=== PATIENT | male | born 1945 | race Caucasian/White ===

== ENCOUNTER → 2019-10-25 | Outpatient (CLI) | payer MEDICARE ==
[2019-08-18 11:00] VITALS: BP 98/72
[~2019-10-25] MED LIST: APIX5TAB PO; FURO40TA4 PO; LISI-338 PO; METO25TA4 PO; NITR0.4T24 SL
== END | disposition home or self-care (01) ==
LOC: LAB 13:33
PROVIDERS: ATTEND Internal Medicine Cardiovascular Disease
DX: Z01.818 Encounter for other preprocedural examination (principal); Z11.59 Encounter for screening for other viral diseases; I48.91 Unspecified atrial fibrillation
CPT/HCPCS: C9803; U0003; 36415; 87635

== ENCOUNTER → 2019-10-29 | Day surgery (SDC) | payer MEDICARE ==
[~2019-10-29] MED LIST changes: +IV RINGERS,LACTATED 1000ML 1,000 ML IV SCH; +PROPOFOL 10 MG/ML (20ML) VIAL. IV ONE
--- NOTE | 2019-10-29 10:04 | EKG ---
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
[2019-10-29 10:14] LABS: HEMATOCRIT 44.4 % (39.0-53.0); HEMOGLOBIN 14.6 g/dL (13.0-17.5)
[2019-10-29 10:23] LABS: CREATININE 1.2 mg/dL (0.7-1.3); GFR 59.2; MAGNESIUM 2.1 mg/dL (1.8-2.4); POTASSIUM 4.2 mmol/L (3.5-5.1)
[2019-10-29 10:25] LABS: PROTHROMBIN TIME PATIENT 16.2 SEC (11.7-14.0)
--- NOTE | 2019-10-29 10:46 | EKG ---
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
--- NOTE | 2019-10-29 10:50 | PDOC ---
Provider Note Provider Note PROCEDURE External cardioversion INDICATIONS Atrial fibrillation COMPLICATIONS None PROCEDURAL DETAILS And informed consent was obtained from patient. After anesthesiology team gave the patient intravenous propofol for deep sedation, he was administered 200 J of synchronized biphasic DC current with successful conversion of rhythm from atrial fibrillation to sinus rhythm. He was hemodynamically stable without any neurological deficits at the end of procedure. He tolerated the procedure well. CONCLUSIONS Successful external cardioversion of atrial fibrillation to sinus rhythm. ROBERTA THOMAS MD October 29, 2019 10:50
[2019-10-29 10:51] VITALS: BP 116/65
== END | disposition home or self-care (01) ==
LOC: SURG 09:26
PROVIDERS: ATTEND Internal Medicine Cardiovascular Disease
DX: I48.91 Unspecified atrial fibrillation (principal); I10 Essential (primary) hypertension; I49.9 Cardiac arrhythmia, unspecified; I25.10 Atherosclerotic heart disease of native coronary artery without angina pectoris; Z98.890 Other specified postprocedural states; Z79.899 Other long term (current) drug therapy; Z79.01 Long term (current) use of anticoagulants
CPT/HCPCS: 36415; 80048; 83735; 85014; 85018; 85610; 92960; 93005; J2704

== ENCOUNTER 2020-01-08 12:03 | Inpatient (IN) | payer MEDICARE ==
[2020-01-07] MEDS: VANCOMYCIN 1.75 GM in IV NORMAL SALINE 500ML BAG 500 ML IV ONE (22:00)
[~2020-01-08] VITALS: Ht 185.4 cm; Wt 75.2 kg
[~2020-01-08 12:03] MED LIST changes: -IV RINGERS,LACTATED 1000ML 1,000 ML IV SCH; -PROPOFOL 10 MG/ML (20ML) VIAL. IV ONE
[2020-01-08 13:56] LABS: BASO # 0.1 x10^3/uL (0.0-0.2); BASO % 1 % (0-3); EOS % 0 % (0-3); HEMATOCRIT 39.5 % (39.0-53.0); HEMOGLOBIN 13.6 g/dL (13.0-17.5); LYMPH # 0.6 x10^3/uL (1.0-4.8); LYMPH % 4 % (24-48); MEAN CORPUSCULAR HEMOGLOBIN 34 pg (25-35); MEAN CORPUSCULAR HGB CONC 35 g/dL (31-37); MEAN CORPUSCULAR VOLUME 98 fL (79-100); MONO # 2.2 x10^3/uL (0.0-1.1); MONO % 16 % (0-9); NEUT # 10.8 x10^3/uL (1.8-7.7); NEUT % 79 % (31-73); PLATELET COUNT 326 x10^3/uL (140-400); RED BLOOD COUNT 4.01 x10^6/uL (4.30-5.70); RED CELL DISTRIBUTION WIDTH 13.7 % (11.5-14.5); WHITE BLOOD COUNT 13.7 x10^3/uL (4.0-11.0)
--- NOTE | 2020-01-08 13:57 | EKG ---
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
[2020-01-08 14:05] LABS: PROTHROMBIN TIME PATIENT 16.9 SEC (11.7-14.0)
--- NOTE | 2020-01-08 14:06 | RAD ---
EXAM: CHEST ONE VIEW. HISTORY: Chest pain. COMPARISON: 08/16/2019. FINDINGS: A frontal view of the chest is obtained. There are no confluent infiltrates. There is no pneumothorax or pleural effusion. The heart is not enlarged. There is a chronic left rib fracture. IMPRESSION: 1. No confluent infiltrates. Electronically signed by: Bernabe Murphy MD (01/08/2020 2:02 PM) [id number]
[2020-01-08 14:18] LABS: CALCIUM 9.8 mg/dL (8.5-10.1); CREATININE 1.2 mg/dL (0.7-1.3); GFR 59.2
[2020-01-08 14:25] LABS: ALBUMIN 2.9 g/dL (3.4-5.0); ALBUMIN/GLOBULIN RATIO 0.5 (1.0-1.7); MAGNESIUM 2.3 mg/dL (1.8-2.4); TOTAL BILIRUBIN 2.7 mg/dL (0.2-1.0); TOTAL PROTEIN 8.7 g/dL (6.4-8.2)
--- NOTE | 2020-01-08 14:31 | RAD ---
Examination: CT HEAD WO CONTRAST History: Reason: weakness, mild left facial droop / Spl. Instructions: / History: Comparison/Correlation: None Findings: Axial images of the head were obtained without contrast. Mild atrophy is present. Cavernous carotid calcifications noted. No intracranial hemorrhage, midline shift, or mass effect. No findings to suggest evolving infarct. Orbits are unremarkable. Bony structures unremarkable. Impression: No suspicious process. The referring ED provider was informed on 01/08/2020 2:28 PM. Electronically signed by: uDsty Guadalupe MD (01/08/2020 2:28 PM) [id number]
[2020-01-08 14:32] LABS: CREATINE KINASE 50 U/L (39-308)
--- NOTE | 2020-01-08 15:01 | PHYS DOC ---
Past Medical History Past Medical History: A-Fib, CHF Additional Past Medical Histor: RVR Additional Past Surgical Histo: inguinal hernia repair, CARDIAC CATH Smoking Status: Former Smoker Alcohol Use: None General Adult EDM: Chief Complaint: WEAKNESS/GENERALIZED HPI: HPI: Patient is a 74 year old male, accompanied by his daughter, who presents to the emergency department with complaints of aching in his joints for the last 3 days. Patient reports that he has severe pain in both of his knees. He denies any recent injury. He states that yesterday he noticed that his left knee became very swollen and that the pain increased. He denies any cough, fever, shortness of breath, abdominal pain, nausea, vomiting, diarrhea, vision changes, dizziness, or headache. Patient denies any difficulty swallowing, aphasia, chest pain, or palpitations. He denies any numbness, tingling, or weakness. He currently rates his pain a 7 out of 10 on the pain scale, he reports that the pain does not radiate and is most severe in his left knee. He reports that the pain increases with movement and palpation he states that the pain decreases with rest. Review of Systems: Review of Systems: Constitutional: Denies fever Eyes: Denies change in visual acuity. [] HENT: Denies nasal congestion or sore throat. [] Respiratory: Denies cough or shortness of breath. [] Cardiovascular: Denies chest pain or edema. [] GI: Denies abdominal pain, nausea, vomiting, bloody stools or diarrhea. [] : Denies dysuria. [] Musculoskeletal: See HPI Integument: Denies rash. [] Neurologic: Denies headache, focal weakness or sensory changes; see HPI. [] Psychiatric: Denies depression or anxiety. [] Heart Score: Risk Factors: Risk Factors: DM, Current or recent (<one month) smoker, HTN, HLP, family his tory of CAD, obesity. Risk Scores: Score 0 - 3: 2.5% MACE over next 6 weeks - Discharge Home Score 4 - 6: 20.3% MACE over next 6 weeks - Admit for Clinical Observation Score 7 - 10: 72.7% MACE over next 6 weeks - Early Invasive Strategies Allergies: Allergies: Allergies Coded Allergies Type Severity Reaction Last Updated Verified No Known Drug Allergies 10/29/19 No Physical Exam: PE: Constitutional: Well developed, well nourished, no acute distress, non-toxic appearance. [] HENT: Normocephalic, atraumatic, bilateral external ears normal, nose normal. [] Eyes: PERRLA, EOMI, conjunctiva normal, no discharge. [] Neck: Normal range of motion, no tenderness, supple, no stridor. [] Cardiovascular:Heart rate regular rhythm, no murmur [] Lungs & Thorax: Bilateral breath sounds clear to auscultation, Respirations even and unlabored, no retractions, no respiratory distress [] Abdomen: Bowel sounds normal, soft, no tenderness, no masses, no pulsatile masses. [] Skin: Warm, dry, no erythema, no rash. [] Back: No tenderness Extremities: Left knee: Diffuse tenderness to palpation with 2+ edema, warmth, no erythema, no cyanosis, limited range of motion due to pain, 2+ pedal pulse of lower left extremity, cap refill less than 2 seconds of lower left extremity Neurologic: Alert and oriented X 3, normal motor function, no focal deficits noted; mild left-sided facial droopchronic per patient; decreased sensitivity to sharp and dull sensation of left upper extremity Psychologic: Affect normal, judgement normal, mood normal. [] Current Patient Data: Labs: Laboratory Tests Test 01/08/20 13:43 White Blood Count 13.7 x10^3/uL (4.0-11.0) H Red Blood Count 4.01 x10^6/uL (4.30-5.70) L Hemoglobin 13.6 g/dL (13.0-17.5) Hematocrit 39.5 % (39.0-53.0) Mean Corpuscular Volume 98 fL (79-100) Mean Corpuscular Hemoglobin 34 pg (25-35) Mean Corpuscular Hemoglobin Concent 35 g/dL (31-37) Red Cell Distribution Width 13.7 % (11.5-14.5) Platelet Count 326 x10^3/uL (140-400) Neutrophils (%) (Auto) 79 % (31-73) H Lymphocytes (%) (Auto) 4 % (24-48) L Monocytes (%) (Auto) 16 % (0-9) H Eosinophils (%) (Auto) 0 % (0-3) Basophils (%) (Auto) 1 % (0-3) Neutrophils # (Auto) 10.8 x10^3/uL (1.8-7.7) H Lymphocytes # (Auto) 0.6 x10^3/uL (1.0-4.8) L Monocytes # (Auto) 2.2 x10^3/uL (0.0-1.1) H Eosinophils # (Auto) 0.0 x10^3/uL (0.0-0.7) Basophils # (Auto) 0.1 x10^3/uL (0.0-0.2) Platelet Estimate Pending Prothrombin Time 16.9 SEC (11.7-14.0) H Prothrombin Time INR 1.4 (0.8-1.1) H Activated Partial Thromboplast Time 43 SEC (24-38) H Sodium Level 133 mmol/L (136-145) L Potassium Level 4.0 mmol/L (3.5-5.1) Chloride Level 97 mmol/L (98-107) L Carbon Dioxide Level 25 mmol/L (21-32) Anion Gap 11 (6-14) Blood Urea Nitrogen 27 mg/dL (8-26) H Creatinine 1.2 mg/dL (0.7-1.3) Estimated GFR (Cockcroft-Gault) 59.2 BUN/Creatinine Ratio 23 (6-20) H Glucose Level 132 mg/dL (70-99) H Calcium Level 9.8 mg/dL (8.5-10.1) Magnesium Level 2.3 mg/dL (1.8-2.4) Total Bilirubin 2.7 mg/dL (0.2-1.0) H Aspartate Amino Transferase (AST) 101 U/L (15-37) H Alanine Aminotransferase (ALT) 73 U/L (16-63) H Alkaline Phosphatase 275 U/L (46-116) H Creatine Kinase 50 U/L (39-308) Creatine Kinase MB (Mass) 0.6 ng/mL (0.0-3.6) Creatine Kinase MB Relative Index % (0-4) Troponin I Quantitative < 0.017 ng/mL (0.000-0.055) JY-Osh-M-Type Natriuretic Peptide 1456 pg/mL (0-124) H Total Protein 8.7 g/dL (6.4-8.2) H Albumin 2.9 g/dL (3.4-5.0) L Albumin/Globulin Ratio 0.5 (1.0-1.7) L Lipase 326 U/L (73-393) Laboratory Tests 01/08/20 13:43 Laboratory Tests 01/08/20 13:43 Vital Signs: Vital Signs Date Time Temp Pulse Resp B/P (MAP) Pulse Ox O2 Delivery O2 Flow Rate FiO2 01/08/20 14:00 99.0 114 20 136/82 (100) 99 Room Air 99.0 EKG: EKG: []1334- sinus tachycardia, rate 115, no STEMI read by Dr. Becerril Radiology/Procedures: Radiology/Procedures: PROCEDURE: CT HEAD WO CONTRAST Examination: CT HEAD WO CONTRAST History: Reason: weakness, mild left facial droop / Spl. Instructions: / History: Comparison/Correlation: None Findings: Axial images of the head were obtained without contrast. Mild atrophy is present. Cavernous carotid calcifications noted. No intracranial hemorrhage, midline shift, or mass effect. No findings to suggest evolving infarct. Orbits are unremarkable. Bony structures unremarkable. Impression: No suspicious process. [] PROCEDURE: CHEST AP ONLY EXAM: CHEST ONE VIEW. HISTORY: Chest pain. COMPARISON: 08/16/2019. FINDINGS: A frontal view of the chest is obtained. There are no confluent infiltrates. There is no pneumothorax or pleural effusion. The heart is not enlarged. There is a chronic left rib fracture. IMPRESSION: 1. No confluent infiltrates. PROCEDURE: KNEE LEFT 3V Examination: KNEE LEFT 3V History: Reason: L KNEE swelling and pain without injury 17 labs 3:45 / Spl. Instructions: / History: Comparison/Correlation: None Findings: Total of 3 images of the left knee were obtained. Joint effusion. Joint spaces are unremarkable. No significant spurring or other degenerative change. No fracture or bone obstruction. Impression: Small joint effusion. Course & Med Decision Making: Course & Med Decision Making Pertinent Labs and Imaging studies reviewed. (See chart for details) [id number] with Dr. Lauren who is the admitting physician, and care was assum ed following discussion of patient. Will admit patient for PUI, left knee pain and swellingpossible septic joint, and fever. Advised that I will consult Dr. Collazo and Dr. Boyle as requested. Also ordered ultrasound of lower left extremity and CT Angio of chest as requested due to elevated d-dimer, will order Zosyn and vancomycin per pharmacy as requested. Blood cultures and lactic acid pending. Patient's vital signs stable. Patient vital signs are stable respirations even and unlabored. Patient will be admitted to the telemetry floor. Patient's case and plan of care also discussed with Dr. Becerril [] Alonzo Disclaimer: Alonzo Disclaimer: This electronic medical record was generated, in whole or in part, using a voice recognition dictation system. Departure Departure Impression: Primary Impression: Person under investigation for COVID-19 Additional Impressions: Pain and swelling of left knee Fever Qualified Codes: R50.9 - Fever, unspecified Disposition: ADMITTED INPATIENT Admitting Physician: CHARLOTTE ([facility]) Condition: STABLE Referrals: DENEEN TRUJILLO MD (PCP) Justicifation of Admission Dx: Justifications for Admission: Justification of Admission Dx: Yes Sepsis: Infection JOSE L TYLER APRN Jan 08, 2020 15:00
[2020-01-08 15:13] LABS: BILIRUBIN,URINE SMALL (NEG); CLARITY,URINE CLEAR; COLOR,URINE ORANGE; NITRITE,URINE NEGATIVE (NEG); PROTEIN,URINE 30 mg/dL (NEG-TRACE)
[2020-01-08] MEDS ORDERED: IBUPROFEN 400 MG TABLET. PO ONE (15:14)
[2020-01-08] MEDS ORDERED: IBUPROFEN 200 MG TABLET. PO ONE ×2 (15:14→15:30)
[2020-01-08 15:21] LABS: C-REACTIVE PROTEIN 203.3 mg/L (0-3.3)
[2020-01-08 15:22] LABS: HYALINE CASTS, URINE FEW /HPF; SQUAMOUS EPITHELIAL CELL,UR FEW /LPF
[2020-01-08 15:23] LABS: BACTERIA,URINE 0 /HPF (0-FEW); RBC,URINE 0 /HPF (0-2); WBC,URINE RARE /HPF (0-4)
[2020-01-08] MEDS ORDERED: IV NORMAL SALINE 1000ML BAG 1,000 ML IV ONE (15:30)
[2020-01-08 15:44] LABS: % BANDS 1 % (0-9); % LYMPHS 9 % (24-48); % MONOS 13 % (0-10); % SEGS 77 % (35-66)
[2020-01-08 15:45] LABS: PLT ESTIMATE ADEQUATE (ADEQUATE)
[2020-01-08 15:50] LABS: TOXIC GRANULATION SLIGHT
[2020-01-08] MEDS ORDERED: PIP/TAZO PER PHARMACY MC PRN (16:00)
--- NOTE | 2020-01-08 16:04 | PDOC1 ---
History and Physical Date of Admission Date of Admission DATE: 01/08/20 TIME: 16:03 Identification/Chief Complaint Chief Complaint seen in ER WITH 3 DAY HX left knee swelling, now associated with fever, states he was playing with his dod last wee, and sprained his left wrist, the pain and edema began to travel up his left arm, to his shoulder, neck, then down his left side to his knee, he is unaware of any open sores or bites, TEMPERATURE OF 101. 2 NOTED IN ER .. Past Medical History Past Medical History Past Medical History Past Medical History: A-Fib, CHF Additional Past Medical Histor: RVR Additional Past Surgical Histo: inguinal hernia repair, CARDIAC CATH Smoking Status: Former Smoker Alcohol Use: None Past Medical History Past Medical History Past Medical History: No Pertinent History Additional Past Surgical Histo: inguinal hernia repair Smoking Status: Never Smoker Alcohol Use: None fhx hyperlipidemia Musculoskeletal: Osteoarthritis Past Surgical History Past Surgical History: Cataract Removal, Hernia Repair Family History Family History: High Cholestrol Social History Smoke: No, REMOTE ALCOHOL: HEAVY Drugs: None Current Problem List Problem List Problems Medical Problems: (1) Atrial fibrillation with RVR Status: Acute FHX COPD Cardiovascular: CHF Musculoskeletal: Osteoarthritis Past Surgical History Past Surgical History: Cataract Removal, Hernia Repair Family History Family History: High Cholestrol, Kidney Disease Social History Smoke: No ALCOHOL: rare Drugs: None Current Medications Current Medications Current Medications Ibuprofen (Motrin) 200 mg STK-MED ONCE PO ; Start 01/08/20 at 15:14; Stop 01/08/20 at 15:14; Status DC Ibuprofen (Motrin) 400 mg STK-MED ONCE PO ; Start 01/08/20 at 15:14; Stop 01/08/20 at 15:14; Status DC Sodium Chloride 1,000 ml @ 1,000 mls/hr 1X ONCE IV Last administered on 01/08/20at 15:24; Start 01/08/20 at 15:30; Stop 01/08/20 at 16:29 Ibuprofen (Motrin) 600 mg 1X ONCE PO Last administered on 01/08/20at 15:30; Start 01/08/20 at 15:30; Stop 01/08/20 at 15:31; Status DC Active Scripts Active Furosemide 40 Mg Tablet 1 Tab PO DAILY 30 Days Lisinopril 5 Mg Tablet 2.5 Mg PO DAILY 30 Days Metoprolol Tartrate 25 Mg Tablet 25 Mg PO BID 30 Days Nitrostat (Nitroglycerin) 0.4 Mg Tab.subl 0.4 Mg SL PRN Q5MIN PRN 30 Days Eliquis (Apixaban) 5 Mg Tablet 5 Mg PO BID 30 Days Allergies Allergies: Coded Allergies: No Known Drug Allergies (Unverified , 10/29/19) ROS Review of System POS FEVER X 24 HRS Eyes: Denies change in visual acuity. [] HENT: Denies nasal congestion or sore throat. [] Respiratory: Denies cough or shortness of breath. [] Cardiovascular: Denies chest pain or edema. [] GI: Denies abdominal pain, nausea, vomiting, bloody stools or diarrhea. [] : Denies dysuria. [] Musculoskeletal: SWELLING LEFT KNEE X 3 DAYS joint pain. [] Integument: Denies rash. [] Neurologic: Denies headache, focal weakness or sensory changes. [] Endocrine: Denies polyuria or polydipsia. [] Lymphatic: Denies swollen glands. [] Psychiatric: Denies depression or anxiety. [] 14 PT ROS OTHERWISE NEG Eyes: Yes Dry eyes Physical Exam Physical Exam Constitutional: Well developed, well nourished, no acute distress, non-toxic appearance. [] HENT: Normocephalic, atraumatic, bilateral external ears normal, oropharynx moist, no oral exudates, nose normal. [] Eyes: PERRLA, EOMI, conjunctiva normal, no discharge. [] Neck: Normal range of motion, no tenderness, supple, no stridor. [] Cardiovascular:irr rate, no murmur [] Lungs & Thorax: Bilateral breath sounds clear to auscultation [] Abdomen: Bowel sounds normal, soft, no tenderness, no masses, no pulsatile masses. [] Skin: Warm, dry, no erythema, no rash. [] Back: No tenderness, no CVA tenderness. [] Extremities: left knee effusion, david's neg [] Neurologic: Alert and oriented X 3, normal motor function, normal sensory function, no focal deficits noted. [] Psychologic: Affect normal, judgement normal, mood normal. [] General: Alert, Oriented X3, Cooperative, No acute distress HEENT: Atraumatic, PERRLA, EOMI, Mucous membr. moist/pink Lungs: Clear to auscultation, Normal air movement Breasts: Not examined Abdomen: Normal bowel sounds, Soft Rectal Exam: not examined Extremities: No cyanosis Neuro: Normal speech, Cranial nerves 3-12 NL Psych/Mental Status: Mental status NL, Mood NL Vitals Vitals Vital Signs Date Time Temp Pulse Resp B/P (MAP) Pulse Ox O2 Delivery O2 Flow Rate FiO2 01/08/20 15:03 101.2 101.2 01/08/20 14:00 114 20 136/82 (100) 99 Room Air Labs Labs Laboratory Tests Test 01/08/20 13:43 01/08/20 15:01 White Blood Count 13.7 x10^3/uL (4.0-11.0) Red Blood Count 4.01 x10^6/uL (4.30-5.70) Hemoglobin 13.6 g/dL (13.0-17.5) Hematocrit 39.5 % (39.0-53.0) Mean Corpuscular Volume 98 fL (79-100) Mean Corpuscular Hemoglobin 34 pg (25-35) Mean Corpuscular Hemoglobin Concent 35 g/dL (31-37) Red Cell Distribution Width 13.7 % (11.5-14.5) Platelet Count 326 x10^3/uL (140-400) Neutrophils (%) (Auto) 79 % (31-73) Lymphocytes (%) (Auto) 4 % (24-48) Monocytes (%) (Auto) 16 % (0-9) Eosinophils (%) (Auto) 0 % (0-3) Basophils (%) (Auto) 1 % (0-3) Neutrophils # (Auto) 10.8 x10^3/uL (1.8-7.7) Lymphocytes # (Auto) 0.6 x10^3/uL (1.0-4.8) Monocytes # (Auto) 2.2 x10^3/uL (0.0-1.1) Eosinophils # (Auto) 0.0 x10^3/uL (0.0-0.7) Basophils # (Auto) 0.1 x10^3/uL (0.0-0.2) Segmented Neutrophils % 77 % (35-66) Band Neutrophils % 1 % (0-9) Lymphocytes % 9 % (24-48) Monocytes % 13 % (0-10) Toxic Granulation Slight Platelet Estimate Adequate (ADEQUATE) Prothrombin Time 16.9 SEC (11.7-14.0) Prothromb Time International Ratio 1.4 (0.8-1.1) Activated Partial Thromboplast Time 43 SEC (24-38) D-Dimer (Gisele) 1.77 ug/mlFEU (0.00-0.50) Sodium Level 133 mmol/L (136-145) Potassium Level 4.0 mmol/L (3.5-5.1) Chloride Level 97 mmol/L (98-107) Carbon Dioxide Level 25 mmol/L (21-32) Anion Gap 11 (6-14) Blood Urea Nitrogen 27 mg/dL (8-26) Creatinine 1.2 mg/dL (0.7-1.3) Estimated GFR (Cockcroft-Gault) 59.2 BUN/Creatinine Ratio 23 (6-20) Glucose Level 132 mg/dL (70-99) Calcium Level 9.8 mg/dL (8.5-10.1) Magnesium Level 2.3 mg/dL (1.8-2.4) Ferritin 461 ng/mL (26-388) Total Bilirubin 2.7 mg/dL (0.2-1.0) Aspartate Amino Transf (AST/SGOT) 101 U/L (15-37) Alanine Aminotransferase (ALT/SGPT) 73 U/L (16-63) Alkaline Phosphatase 275 U/L (46-116) Creatine Kinase 50 U/L (39-308) Creatine Kinase MB (Mass) 0.6 ng/mL (0.0-3.6) Creatine Kinase MB Relative Index % (0-4) Troponin I Quantitative < 0.017 ng/mL (0.000-0.055) C-Reactive Protein, Quantitative 203.3 mg/L (0-3.3) LA-Cih-J-Type Natriuretic Peptide 1456 pg/mL (0-124) Total Protein 8.7 g/dL (6.4-8.2) Albumin 2.9 g/dL (3.4-5.0) Albumin/Globulin Ratio 0.5 (1.0-1.7) Lipase 326 U/L (73-393) Urine Collection Type Void Urine Color [place] Urine Clarity Clear Urine pH 5.0 (<5.0-8.0) Urine Specific [place] 1.025 (1.000-1.030) Urine Protein 30 mg/dL (NEG-TRACE) Urine Glucose (UA) Negative mg/dL (NEG) Urine Ketones (Stick) Trace mg/dL (NEG) Urine Blood Negative (NEG) Urine Nitrite Negative (NEG) Urine Bilirubin Small (NEG) Urine Urobilinogen Dipstick 1.0 mg/dL (0.2 mg/dL) Urine Leukocyte Esterase Negative (NEG) Urine RBC 0 /HPF (0-2) Urine WBC Rare /HPF (0-4) Urine Squamous Epithelial Cells Few /LPF Urine Bacteria 0 /HPF (0-FEW) Urine Hyaline Casts Few /HPF Urine Mucus Marked /LPF Laboratory Tests Test 01/08/20 13:43 01/08/20 15:01 White Blood Count 13.7 x10^3/uL (4.0-11.0) Red Blood Count 4.01 x10^6/uL (4.30-5.70) Hemoglobin 13.6 g/dL (13.0-17.5) Hematocrit 39.5 % (39.0-53.0) Mean Corpuscular Volume 98 fL (79-100) Mean Corpuscular Hemoglobin 34 pg (25-35) Mean Corpuscular Hemoglobin Concent 35 g/dL (31-37) Red Cell Distribution Width 13.7 % (11.5-14.5) Platelet Count 326 x10^3/uL (140-400) Neutrophils (%) (Auto) 79 % (31-73) Lymphocytes (%) (Auto) 4 % (24-48) Monocytes (%) (Auto) 16 % (0-9) Eosinophils (%) (Auto) 0 % (0-3) Basophils (%) (Auto) 1 % (0-3) Neutrophils # (Auto) 10.8 x10^3/uL (1.8-7.7) Lymphocytes # (Auto) 0.6 x10^3/uL (1.0-4.8) Monocytes # (Auto) 2.2 x10^3/uL (0.0-1.1) Eosinophils # (Auto) 0.0 x10^3/uL (0.0-0.7) Basophils # (Auto) 0.1 x10^3/uL (0.0-0.2) Segmented Neutrophils % 77 % (35-66) Band Neutrophils % 1 % (0-9) Lymphocytes % 9 % (24-48) Monocytes % 13 % (0-10) Toxic Granulation Slight Platelet Estimate Adequate (ADEQUATE) Prothrombin Time 16.9 SEC (11.7-14.0) Prothromb Time International Ratio 1.4 (0.8-1.1) Activated Partial Thromboplast Time 43 SEC (24-38) D-Dimer (Gisele) 1.77 ug/mlFEU (0.00-0.50) Sodium Level 133 mmol/L (136-145) Potassium Level 4.0 mmol/L (3.5-5.1) Chloride Level 97 mmol/L (98-107) Carbon Dioxide Level 25 mmol/L (21-32) Anion Gap 11 (6-14) Blood Urea Nitrogen 27 mg/dL (8-26) Creatinine 1.2 mg/dL (0.7-1.3) Estimated GFR (Cockcroft-Gault) 59.2 BUN/Creatinine Ratio 23 (6-20) Glucose Level 132 mg/dL (70-99) Calcium Level 9.8 mg/dL (8.5-10.1) Magnesium Level 2.3 mg/dL (1.8-2.4) Ferritin 461 ng/mL (26-388) Total Bilirubin 2.7 mg/dL (0.2-1.0) Aspartate Amino Transf (AST/SGOT) 101 U/L (15-37) Alanine Aminotransferase (ALT/SGPT) 73 U/L (16-63) Alkaline Phosphatase 275 U/L (46-116) Creatine Kinase 50 U/L (39-308) Creatine Kinase MB (Mass) 0.6 ng/mL (0.0-3.6) Creatine Kinase MB Relative Index % (0-4) Troponin I Quantitative < 0.017 ng/mL (0.000-0.055) C-Reactive Protein, Quantitative 203.3 mg/L (0-3.3) GN-Nen-A-Type Natriuretic Peptide 1456 pg/mL (0-124) Total Protein 8.7 g/dL (6.4-8.2) Albumin 2.9 g/dL (3.4-5.0) Albumin/Globulin Ratio 0.5 (1.0-1.7) Lipase 326 U/L (73-393) Urine Collection Type Void Urine Color [place] Urine Clarity Clear Urine pH 5.0 (<5.0-8.0) Urine Specific [place] 1.025 (1.000-1.030) Urine Protein 30 mg/dL (NEG-TRACE) Urine Glucose (UA) Negative mg/dL (NEG) Urine Ketones (Stick) Trace mg/dL (NEG) Urine Blood Negative (NEG) Urine Nitrite Negative (NEG) Urine Bilirubin Small (NEG) Urine Urobilinogen Dipstick 1.0 mg/dL (0.2 mg/dL) Urine Leukocyte Esterase Negative (NEG) Urine RBC 0 /HPF (0-2) Urine WBC Rare /HPF (0-4) Urine Squamous Epithelial Cells Few /LPF Urine Bacteria 0 /HPF (0-FEW) Urine Hyaline Casts Few /HPF Urine Mucus Marked /LPF Images Images Examination: Unilateral venous Doppler. Technique: Ultrasound evaluation of the left lower extremity was performed from the groin to the upper calf with muñoz scale, spectral and color doppler evaluation. Comparison: None Indication: Leg swelling Findings: There is normal venous flow and compressibility of left common femoral vein, femoral vein, popliteal vein, and visualized proximal calf veins. Impression: No evidence for deep vein thrombosis of left lower extremity from the level of the calf veins to the groins. Electronically signed by: Leatha Dawkins MD (01/08/2020 4:37 PM) [facility] DICTATED and SIGNED BY: LEATHA DAWKINS MD DATE: 01/08/201636 PATIENT: SCOTT SERNA JACCOUNT: [id number] : 1945 LOCATION: ER AGE: 74 SEX: M EXAM STATUS: REG ER ORD. PHYSICIAN: JOSE L TYLER APRN REASON: L KNEE swelling and pain without injury 17 labs 3:45 PROCEDURE: KNEE LEFT 3V Examination: KNEE LEFT 3V History: Reason: L KNEE swelling and pain without injury 17 labs 3:45 / Spl. Instructions: / History: Comparison/Correlation: None Findings: Total of 3 images of the left knee were obtained. Joint effusion. Joint spaces are unremarkable. No significant spurring or other degenerative change. No fracture or bone obstruction. Impression: Small joint effusion. Electronically signed by: Dusty Ren MD (01/08/2020 4:13 PM) [facility] DICTATED and SIGNED BY: DUSTY REN MD DATE: 01/08/20 5321 PATIENT: SCOTT SERNA: [id number] : 1945 LOCATION: ER AGE: 74 SEX: M EXAM STATUS: REG ER ORD. PHYSICIAN: JOSE L TYLER APRN REASON: weakness, elevated D-dimer PROCEDURE: CT ANGIOGRAPHY CHEST Examination: CT ANGIOGRAPHY CHEST History: Reason: weakness, elevated D-dimer / Spl. Instructions: [id number] 100ml / History: Comparison/Correlation: 08/16/2019 CTA chest Findings: Axial images of chest were obtained following IV contrast pulmonary arteriography protocol. Sagittal and coronal reformatted images were provided. Degenerative space disc narrowing of the cervical spine is evident. Pulmonary vasculature is normal. No pulmonary arterial thromboembolic disease. No suspicious infiltrates. Bony structures are unremarkable. Calcified left hilar lymph nodes are present. Calcified granuloma involves the posterior left mid thoracic lung field. Tracheobronchial tree is unremarkable. No pleural or pericardial effusion. Thoracic aorta is unremarkable for the patient's age. Partially visualized upper abdomen is unremarkable. Small hiatal hernia noted. Bony structures unremarkable. Impression: No PE or infiltrate. PQRS Compliance Statement: One or more of the following individualized dose reduction techniques were utilized for this examination: 1. Automated exposure control 2. Adjustment of the mA and/or kV according to patient size 3. Use of iterative reconstruction technique Electronically signed by: Dusty Ren MD (01/08/2020 5:12 PM) [facility] DICTATED and SIGNED BY: DUSTY REN MD DATE: 01/08/20 1712 Technologist: Frank Lou Nurse: Arlette Lincoln Procedure(s) performed: Left heart catheterization and selective coronary angiography via right transradial approach Heart Failure Class 4 fl time: 2.1 mins dose: 28 gycm2 contrast: 65 ml moderate sedation: 24 mins INDICATION The indication(s) include : Cardiomyopathy and acute on chronic systolic heart failure. CSHA Clinical Frailty Scale CSHA Clinical Frailty Scale: Moderately Frail Heart Failure Heart Failure: Yes If Yes, Newly Diagnosed: No If Yes, HF Type: Systolic PROCEDURE NARRATIVE After explaining the risks, benefits and alternative options, informed consent was obtained from patient. Patient was brought to the cardiac [facility] and right wrist was prepped and draped in the usual fashion after confirming a positive modified Gurpreet's test. Arterial access was obtained in the right r adial artery and a 6 Georgian sheath was inserted. 6 Georgian Wyatt catheter was used to perform selective angiography of the left and right coronary arteries. LVEDP and transaortic gradients remeasured. Patient tolerated the procedure well. Hemostasis was achieved using TR band. There were no immediate complications. The following findings were noted. FINDINGS 1. Hemodynamics: Left ventricular end-diastolic pressure of 17 mmHg. No pullback gradient across the aortic valve. 2. Coronary angiography: a. The left main coronary artery arose from the left sinus of Valsalva, gave rise to the left anterior descending and left circumflex arteries and did not show any significant stenosis. b. The left anterior descending artery showed 30% bifurcation stenosis involving the midsegment of LAD and proximal segment of the diagonal branch. c. The left circumflex artery did not show any significant stenosis. d. The right coronary artery was a large and dominant vessel arising from the right sinus of Valsalva that showed 30% stenosis in the midsegment. Conclusion Nonobstructive coronary artery disease Recommendations Optimization of medical therapy for nonischemic cardiomyopathy and repeat 2-D echo in 3 months. Signed by : Roberta Mao, Electronically Approved : 08/17/2019 14:09:25 DICTATED and SIGNED BY: ROBERTA MAO MD DATE: 08/17/19 1405 APPROVED REPORT EXAM: Two-dimensional and M-mode echocardiogram with Doppler and color Doppler. Other Information Quality : Good HR: 105bpm INDICATION Atrial Fibrillation Congestive Heart Failure 2D DIMENSIONS RVDd 3.4 (2.9-3.5cm) Left Atrium(2D) 3.9 (1.6-4.0cm) IVSd 1.2 (0.7-1.1cm) Aortic Root(2D) 3.6 (2.0-3.7cm) LVDd 5.0 (3.9-5.9cm) LVOT Diameter 2.1 (1.8-2.4cm) PWd 1.2 (0.7-1.1cm) LVDs 4.5 (2.5-4.0cm) FS (%) 10.0 % SV 25.4 ml Aortic Valve AoV Peak Jabier. 109.4cm/s AoV VTI 17.1cm AO Peak GR. 4.8mmHg LVOT VTI 10.01cm AO Mean GR. 3mmHg AI P 1/2 Time 572ms Mitral Valve MV E Peak Gr. 3mmHg MV E Mean Gr. 1mmHg TDI Lateral E' P. V 10.99cm/s Medial E' P. V 5.02cm/s Tricuspid Valve TR P. Velocity 302cm/s RAP ESTIMATE 3mmHg TR Peak Gr. 38mmHg RVSP 41mmHg LEFT VENTRICLE The Left Ventricle is borderline dilated. There is mild concentric left ventricular hypertrophy. The systolic function is severely impaired. The Ejection Fraction is 15-20%. There is severe global hypokinesis of the left ventricle. Diastology indeterminate due to atrial fibrillation. RIGHT VENTRICLE The right ventricle is normal size. There is normal right ventricular wall thickness. Systolic function is mildly reduced. ATRIA The left atrium is mildly dilated. The right atrium is mildly dilated. The interatrial septum is intact with no evidence for an atrial septal defect or patent foramen ovale as noted on 2-D or Doppler imaging. AORTIC VALVE The aortic valve is normal in structure and function. Doppler and Color Flow revealed trace aortic regurgitation. There is no significant aortic valvular stenosis. MITRAL VALVE The mitral valve is normal in structure and function. There is no evidence of mitral valve prolapse. There is no mitral valve stenosis. Doppler and Color-flow revealed mild mitral regurgitation. TRICUSPID VALVE The tricuspid valve is normal in structure and function. Doppler and Color Flow revealed trace tricuspid regurgitation with an estimated PAP of 41 mmHg. There is no tricuspid valve stenosis. PULMONIC VALVE The pulmonic valve is not well visualized. Doppler and Color Flow revealed no pulmonic valvular regurgitation. GREAT VESSELS The aortic root is normal in size. The IVC is normal in size and collapses >50% with inspiration. PERICARDIAL EFFUSION There is no evidence of significant pericardial effusion. Critical Notification Physician Notified Date: 08/16/2019 Critical Value: Yes <Conclusion> The Left Ventricle is borderline dilated. The systolic function is severely impaired. The Ejection Fraction is 15-20%. There is severe global hypokinesis of the left ventricle. There is mild concentric left ventricular hypertrophy. Doppler and Color Flow revealed trace aortic regurgitation. There is no significant aortic valvular stenosis. Doppler and Color-flow revealed mild mitral regurgitation. Doppler and Color Flow revealed trace tricuspid regurgitation with an estimated PAP of 41 mmHg. Signed by : Justus Moraes MD Electronically Approved : 08/16/2019 16:55:59 DICTATED and SIGNED BY: JUSTUS MORAES MD DATE: 08/16/19 1651 Examination: CT HEAD WO CONTRAST History: Reason: weakness, mild left facial droop / Spl. Instructions: / History: Comparison/Correlation: None Findings: Axial images of the head were obtained without contrast. Mild atrophy is present. Cavernous carotid calcifications noted. No intracranial hemorrhage, midline shift, or mass effect. No findings to suggest evolving infarct. Orbits are unremarkable. Bony structures unremarkable. Impression: No suspicious process. The referring ED provider was informed on 01/08/2020 2:28 PM. Electronically signed by: Dusty Ren MD (01/08/2020 2:28 PM) [facility] DICTATED and SIGNED BY: DUSTY REN MD DATE: 01/08/20 1428 EXAM: CHEST ONE VIEW. HISTORY: Chest pain. COMPARISON: 08/16/2019. FINDINGS: A frontal view of the chest is obtained. There are no confluent infiltrates. There is no pneumothorax or pleural effusion. The heart is not enlarged. There is a chronic left rib fracture. IMPRESSION: 1. No confluent infiltrates. Electronically signed by: Bernabe Murphy MD (01/08/2020 2:02 PM) [id number] DICTATED and SIGNED BY: CLEMENTINA MURPHY MD DATE: 01/08/20 1402 VTE Prophylaxis Ordered VTE Prophylaxis Devices: Contraindicated VTE Pharmacological Prophylaxi: Yes Assessment/Plan Assessment/Plan IMPRESSION: 1. HX A-FIB ON ELIQUIS Ejection Fraction is 15-20%.severe global hypokinesis of the left ventricle.mild concentric left ventricular hypertrophy.Doppler and Color Flow revealed trace tricuspid regurgitation with an estimated PAP of 41 mmHg. 2. KNEE Pain and swelling, acute, concern for septic knee, aspirated in er 3. recent Moderate right and small left pleural effusion. 4. Reflux of contrast into distended IVC and hepatic veins suggesting right heart strain or failure. 5. Pulmonary hypertension 6. Mild bilateral lower lobe infiltrates/atelectasis. 7. Fever/ POA 8. PUI for covid-19 stat 9. leukocytosis 10. NONISCHEMIC Cardiomyopathy 11. ELEVATED D-DIMER by venous doppler , No evidence for deep vein thrombosis of left lower extremity from the level of the calf veins to the groins. OR PE ON CTA ADMIT CARDIOLOGY CONSULT ORTHO Consult ECHO REVIEWED ID consult venous doppler legs exclude dvt neg CONSULT Pulmonary BLOOD CULTURE Covid-19 screening culture of aspirate appears at low risk for intraoperative or post-operative complications by my exam today 78 min pt exam, chart review, > 50% of time spent with exam, chart review, pt care coordination Justicifation of Admission Dx: Justifications for Admission: Justification of Admission Dx: Yes CHF: Cardiac Arrhythmias Sepsis: Infection Cellulitis: Cellulitis Comments: SEPTIC LEFT KNEE SHASHANK DELAROSA MD Jan 08, 2020 16:04
[2020-01-08] MEDS ORDERED: IOHEXOL 350 MG/ML 100 ML VIAL. IV ONE (16:15)
[2020-01-08] MEDS ORDERED: PIPERACILLIN/TAZOBACTAM 4.5 GM in IV NORMAL SALINE 100ML 100 ML IV ONE (16:15)
--- NOTE | 2020-01-08 16:16 | RAD ---
Examination: KNEE LEFT 3V History: Reason: L KNEE swelling and pain without injury 17 labs 3:45 / Spl. Instructions: / History: Comparison/Correlation: None Findings: Total of 3 images of the left knee were obtained. Joint effusion. Joint spaces are unremarkable. No significant spurring or other degenerative change. No fracture or bone obstruction. Impression: Small joint effusion. Electronically signed by: Dusty Guadalupe MD (01/08/2020 4:13 PM) [id number]
[2020-01-08] MEDS ORDERED: CONTRAST GIVEN. MC PRN (16:30)
--- NOTE | 2020-01-08 16:40 | RAD ---
Examination: Unilateral venous Doppler. Technique: Ultrasound evaluation of the left lower extremity was performed from the groin to the upper calf with muñoz scale, spectral and color doppler evaluation. Comparison: None Indication: Leg swelling Findings: There is normal venous flow and compressibility of left common femoral vein, femoral vein, popliteal vein, and visualized proximal calf veins. Impression: No evidence for deep vein thrombosis of left lower extremity from the level of the calf veins to the groins. Electronically signed by: Mack Salazar MD (01/08/2020 4:37 PM) [facility]
--- NOTE | 2020-01-08 17:15 | RAD ---
Examination: CT ANGIOGRAPHY CHEST History: Reason: weakness, elevated D-dimer / Spl. Instructions: [id number] 100ml / History: Comparison/Correlation: 08/16/2019 CTA chest Findings: Axial images of chest were obtained following IV contrast pulmonary arteriography protocol. Sagittal and coronal reformatted images were provided. Degenerative space disc narrowing of the cervical spine is evident. Pulmonary vasculature is normal. No pulmonary arterial thromboembolic disease. No suspicious infiltrates. Bony structures are unremarkable. Calcified left hilar lymph nodes are present. Calcified granuloma involves the posterior left mid thoracic lung field. Tracheobronchial tree is unremarkable. No pleural or pericardial effusion. Thoracic aorta is unremarkable for the patient's age. Partially visualized upper abdomen is unremarkable. Small hiatal hernia noted. Bony structures unremarkable. Impression: No PE or infiltrate. PQRS Compliance Statement: One or more of the following individualized dose reduction techniques were utilized for this examination: 1. Automated exposure control 2. Adjustment of the mA and/or kV according to patient size 3. Use of iterative reconstruction technique Electronically signed by: Dusty Guadalupe MD (01/08/2020 5:12 PM) [facility]
[2020-01-08] MEDS ORDERED: IV RINGERS,LACTATED 1000ML 1,000 ML IV SCH (18:41)
[2020-01-08] MEDS ORDERED: LIDOCAINE 1% PF 2 ML VIAL. ID PRN (18:45)
[2020-01-08] MEDS ORDERED: HYDROmorphone 2 MG/ML VIAL IV PRN (18:45)
[2020-01-08] MEDS ORDERED: fentaNYL PF VIAL 100 MCG/2 ML VIAL IV PRN ×2 (18:45)
[2020-01-08] MEDS ORDERED: PROCHLORPERAZINE 10 MG/2 ML VIAL. IV PRN (18:45)
[2020-01-08] MEDS ORDERED: MORPHINE SULFATE 2 MG/ML VIAL. IV PRN (18:45)
[2020-01-08 19:17] LABS: BF CLARITY CLOUDY; BF COLOR RED; BF SOURCE SYNOVIAL
[2020-01-08 19:18] LABS: BF MON % 7 %; BF PMN % 96 %; BF RBC COUNT 3867 /cmm (Not Established); BF WBC COUNT 59600 /cmm (Not Established)
[2020-01-08] MEDS ORDERED: PROPOFOL 10 MG/ML (20ML) VIAL. IV ONE (20:12)
[2020-01-08] MEDS ORDERED: DEXAMETHASONE SOD PHOS 4 MG/ML VIAL ONE (20:12)
[2020-01-08] MEDS ORDERED: PHENYLEPHRINE in 0.9% NACL PF 1 MG/10 ML SYRINGE. IV ONE (20:12)
[2020-01-08] MEDS ORDERED: ETOMIDATE 20 MG/10 ML VIAL. IV ONE (20:12)
--- NOTE | 2020-01-08 20:22 | CONS ---
DATE OF CONSULTATION: 01/08/2020 EMERGENCY DEPARTMENT ORTHOPEDIC CONSULTATION REQUESTING PHYSICIAN: Maura Bailey APRN REASON FOR CONSULTATION: Left knee pain, swelling, fever, suspicion of possible septic knee. HISTORY OF PRESENT ILLNESS: The patient is a 74-year-old male, otherwise independently ambulatory and active, who notes some generalized weakness, worsening over the past couple of days, some fever and the sudden atraumatic onset in the last couple of days of left knee pain and swelling. PAST MEDICAL HISTORY: Significant for atrial fibrillation and congestive heart failure. PAST SURGICAL HISTORY: Cardiac catheterization and an inguinal hernia repair, also significant for cataract removal. FAMILY HISTORY: High cholesterol. SOCIAL HISTORY: He quit smoking many years ago. Still has heavy alcohol use, no drug use. ALLERGIES: He has no known drug allergies. MEDICATIONS: List is reviewed. REVIEW OF SYSTEMS: Significant for the sudden atraumatic onset of left knee pain and swelling. Overall generalized weakness, fevers. PHYSICAL EXAMINATION: GENERAL: This is a pleasant, cooperative 74-year-old male, alert and oriented, only mild distress due to his left knee pain, holding it in a comfortable position. VITAL SIGNS: Temperature is 101.2, pulse 114, respirations 20, blood pressure 136/82, 99% saturation on room air. EXTREMITIES: Examination of upper extremities, he has full range of motion of shoulder, elbow and wrist bilaterally. No joint swelling or tenderness present. His left knee is quite swollen and limited flexion due to pain. He can slowly extend the knee. Ligaments are stable. He is diffusely tender on palpation over the knee. He has normal examination of the contralateral right knee, bilateral hips and ankles with overall intact motor function, distal pulses, sensation, reflexes, skin in both upper and lower extremities throughout. LABORATORY DATA: White blood cell count is 13.7 with 79% neutrophils. IMPRESSION: 1. Likely septic left knee joint. 2. Generalized weakness with fever. TREATMENT PLAN: I went over with him and his daughter, my concern for possible septic knee joint based on his clinical picture and initial laboratory examination. I had gone over with him the recommendation for aspiration of his knee joint to assess the joint fluid, sent it off for cell count, cultures and use that to make a determination of a surgical recommendation. He agreed to this and after giving verbal informed consent, the left knee was aspirated under sterile conditions for a very cloudy thick synovial fluid that appeared grossly infected and indeed on a stat cell count, showed 59,600 nucleated cells with 96% PMNs and 3867 red blood cells. I reviewed with him and his daughter, the results of the white count showing basically confirming the clinical suspicion of infection. He was evaluated medically and shown to be stable from a cardiac standpoint with no new symptoms and since he had really nothing to eat or drink today aside from water with sips of medications, we have talked through the rationale of surgical treatment of arthroscopic irrigation and debridement of his left septic knee joint and that I would address any other pathology occurring at the same time. All his questions were answered. We are going to proceed urgently to surgery today. WOO MULLER MD DR: KOSTAS/judd JOB#: [id number] / [id number]
[2020-01-08] MEDS ORDERED: ALBUTEROL SULFATE 2.5 MG/3 ML NEBU. NEB PRN (20:30)
[2020-01-08] MEDS ORDERED: 0.9 % SODIUM CHLORIDE 10 ML DISP.SYRIN. IV PRN (20:30)
[2020-01-08] MEDS ORDERED: DOCUSATE SODIUM 100 MG CAPSULE. PO PRN (20:30)
[2020-01-08] MEDS ORDERED: SODIUM PHOSPHATES 19/7GM 133 ML ENEMA. PR PRN (20:30)
[2020-01-08] MEDS ORDERED: guaiFENesin ORAL 200 MG/10 ML LIQUID. PO PRN (20:30)
[2020-01-08] MEDS ORDERED: NITROGLYCERIN SUBLINGUAL 0.4 MG BOTTLE OF 25. SL PRN (20:30)
[2020-01-08] MEDS ORDERED: APIXABAN 5 MG TABLET. PO SCH (21:00)
[2020-01-08] MEDS ORDERED: BUPIVACAINE-EPI 0.5%-1:200000 MPF 30 ML VIAL. ONE (21:19)
[2020-01-08] MEDS: VANCOMYCIN 1.75 GM in IV NORMAL SALINE 500ML BAG 500 ML IV ONE (22:00)
--- NOTE | 2020-01-08 22:20 | PDOC4 ---
Operative Note Operative Note Date of surgery: 01/08/2020 Preoperative diagnosis: Left septic knee joint Postoperative diagnosis: Same with medial lateral meniscus tears and calcium pyrophosphate deposition disease (CPPD) Operative procedure: Left knee arthroscopy with synovial debridement and partial medial and lateral meniscectomy Surgeon: Zay Anesthesia: General Estimated blood loss: 5 cc Complications: None Operative indications: Please see my dictated orthopedic consultation for detailed operative indications and note that I covered with the patient the recommendation for urgent arthroscopy for irrigation debridement of a clinically septic knee joint and I discussed with him that I would address any other patho logies as appropriate as he indicated that he was having some occasional mechanical type symptoms with walking up and down hills or on uneven ground associated with his activities. Operative text: Patient was identified procedure verified patient placed in the supine position on the operating table. After adequate amounts of general anesthesia were administered the left lower extremity was prepped and draped in standard sterile fashion and after timeout was performed patient procedure identified and verified a sterile tourniquet was placed on the thigh and was inflated to 250 mmHg without exsanguination due to the infection. A standard lateral portal was established medial portal established using spinal needle localization and the knee joint was systematically examined, noting significant synovial irritation and calcium pyrophosphate deposition throughout the synovium cartilage surfaces and menisci. He was found to have a displaceable tear of the posterior horn and body of the medial meniscus tear along with a loose meniscal fragment all of which were trimmed back to stable tissue with the arthroscopic punch and shaver. ACL was probed and found to be intact and lateral meniscus was found to have fraying throughout the posterior horn and body primarily and at the anterior and posterior roots as well all of which were trimmed back to stable tissue with the arthroscopic punch and shaver back to a stable meniscal rim. On the medial side approximately 30% of the meniscus was trimmed back to a stable tissue on the lateral side about 10 to 15% of the meniscal rim was excised. The CPPD was noted on the cartilage surfaces and remaining meniscus and did not require further debridement. There was irritated synovium throughout the suprapatellar pouch and gutter area all of which were debrided to remove the synovitis and CPPD deposits. The knee joint was then further irrigated with the remaining 6 L of normal saline solution total. The joint was then drained of arthroscopic fluid portals were closed with nylon suture and a total of about 24 cc of half percent Marcaine with epinephrine were injected in the portal and fat pad areas sterile dressings were applied toes are noted be warm pink following deflation of the tourniquet patient was returned to recovery room in stable condition having tolerated the procedure well WOO MULLER MD Jan 08, 2020 22:20
[2020-01-08 22:30] VITALS: BP 120/79
--- NOTE | 2020-01-08 22:30 | NUR ---
Admit to [facility] room 244 via bed from PACU. Patient was ER hold until he went to surgery for I&D of left knee. Alert. Pleasant. Daughter, Deepika, , at the bedside. Orientated to room and call light. Reviewed POC to include clean dry dressing to left knee, Bedrest for the night, IV ABx and pain management. Verbalized understanding. Resting in bed. Call light at hand. Dressing to left knee CD&I.
[2020-01-08] MEDS: METOPROLOL TART IMMED RELEASE 25 MG TABLET. PO SCH (23:41)
[2020-01-08] MEDS: PIPERACILLIN/TAZOBACTAM 3.375 GM in IV NORMAL SALINE 50ML 50 ML IV SCH (23:42)
[2020-01-09] MEDS: ANTI-COAG MONITOR BY PHARMACY. MC PRN ×3 (00:14→11:21)
[2020-01-09] MEDS: VANCOMYCIN PER PHARMACY MC PRN ×2 (01:09→11:24)
--- NOTE | 2020-01-09 01:09 | NUR ---
Pharmacy Vancomycin Dosing Note S:Consulted to monitor and dose vancomycin started 01/08/20. O:SCOTT SERNA is a 74 year old M with Sepsis SEPTIC KNEE . Height: 6 feet, 1 inches Weight: 68.1 kg Miller Body Weight: 79.90 Adjusted Body Weight: 75.18 Dosing Weight: Actual Other Antibiotics: ZOSYN 3.375 GM Q6H LABS: Last BUN: 27 Last Creatinine: 1.2 Creatinine Clearance: 52 mL/min Last WBC: 13.7 Last Procalcitonin: Tmax (past 24 hours): Microbiology: I/O: Drug Levels: Last level: on at Last dose given 01/08/20 at 2000 Vancomycin Dosing: Loading Dose: 1750 mg x1 Dosing Weight: Actual Target Trough: 15-20 A: Based on: WT AND CRCL P: 1. Begin Vancomycin 1000 mg IV q18h 2. Follow up Trough level on 01/10/20 at 0730 3. Pharmacy will continue to monitor, follow and adjust therapy as needed. BETY SINGH [facility], 01/09/20 0109
[2020-01-09] MEDS: HYDROmorphone 2 MG/ML VIAL IV PRN ×5 (02:48→15:18)
[2020-01-09 03:39] VITALS: BP 131/84
[2020-01-09 04:24] LABS: BASO % 0 % (0-3); EOS % 0 % (0-3); HEMATOCRIT 33.7 % (39.0-53.0); HEMOGLOBIN 11.4 g/dL (13.0-17.5); LYMPH # 0.6 x10^3/uL (1.0-4.8); LYMPH % 5 % (24-48); MEAN CORPUSCULAR HEMOGLOBIN 34 pg (25-35); MEAN CORPUSCULAR HGB CONC 34 g/dL (31-37); MEAN CORPUSCULAR VOLUME 99 fL (79-100); MONO # 1.6 x10^3/uL (0.0-1.1); MONO % 14 % (0-9); NEUT # 9.2 x10^3/uL (1.8-7.7); NEUT % 81 % (31-73); PLATELET COUNT 259 x10^3/uL (140-400); RED CELL DISTRIBUTION WIDTH 13.5 % (11.5-14.5); WHITE BLOOD COUNT 11.4 x10^3/uL (4.0-11.0)
[2020-01-09 04:48] LABS: ALBUMIN 2.2 g/dL (3.4-5.0); ALBUMIN/GLOBULIN RATIO 0.4 (1.0-1.7); CALCIUM 8.2 mg/dL (8.5-10.1); CREATININE 1.1 mg/dL (0.7-1.3); GFR 65.4; POTASSIUM 4.1 mmol/L (3.5-5.1); TOTAL BILIRUBIN 2.1 mg/dL (0.2-1.0); TOTAL PROTEIN 7.1 g/dL (6.4-8.2)
[2020-01-09] MEDS: PIPERACILLIN/TAZOBACTAM 3.375 GM in IV NORMAL SALINE 50ML 50 ML IV SCH ×4 (05:23→23:20)
[2020-01-09] MEDS: ONDANSETRON PF 4 MG/2 ML VIAL. IV PRN ×2 (06:31→11:24)
[2020-01-09 07:00] VITALS: BP 131/71
[2020-01-09] MEDS: APIXABAN 5 MG TABLET. PO SCH ×2 (08:28→20:21)
[2020-01-09] MEDS: METOPROLOL TART IMMED RELEASE 25 MG TABLET. PO SCH ×2 (08:29→20:21)
[2020-01-09] MEDS: FUROSEMIDE 40 MG TABLET. PO SCH (08:29)
[2020-01-09] MEDS: LISINOPRIL 5 MG TABLET. PO SCH (08:30)
[2020-01-09 11:00] VITALS: BP 151/79
--- NOTE | 2020-01-09 11:08 | PDOC ---
Infectious Disease Note Vital Signs: Vital Signs Vital Signs Date Time Temp Pulse Resp B/P (MAP) Pulse Ox O2 Delivery O2 Flow Rate FiO2 01/09/20 08:40 97 Room Air 01/09/20 08:31 16 01/09/20 08:30 61 131/71 01/09/20 07:00 99.4 99.4 01/08/20 21:30 10 Medications: Inpatient Meds: Current Medications Medications (Trade) Dose Ordered Sig/Lenin Start Time Stop Time Status Last Admin Dose Admin Acetaminophen (Tylenol) 650 mg PRN Q4HRS PRN 01/08/20 20:30 Albuterol Sulfate (Ventolin Neb Soln) 2.5 mg PRN Q4HRS PRN 01/08/20 20:30 Apixaban (Eliquis) 5 mg BID 01/09/20 09:00 01/09/20 08:28 5 MG Bupivacaine HCl/ Epinephrine Bitart (Sensorcain-Epi 0.5%-1:543994 Mpf) 30 ml STK-MED ONCE 01/08/20 21:19 01/08/20 21:19 DC 01/08/20 21:20 24 ML Dexamethasone Sodium Phosphate (Decadron) 4 mg STK-MED ONCE 01/08/20 20:12 01/08/20 20:12 DC Docusate Sodium (Colace) 100 mg PRN BID PRN 01/08/20 20:30 Etomidate (Amidate) 20 mg STK-MED ONCE 01/08/20 20:12 01/08/20 20:12 DC Fentanyl Citrate (Fentanyl 2ml Vial) 50 mcg PRN Q5MIN PRN 01/08/20 18:45 01/09/20 18:44 Furosemide (Lasix) 40 mg DAILY 01/09/20 09:00 01/09/20 08:29 40 MG Guaifenesin (Robitussin) 200 mg PRN Q4HRS PRN 01/08/20 20:30 Hydromorphone HCl (Dilaudid) 0.75 mg PRN Q3HRS PRN 01/08/20 20:30 01/09/20 08:28 0.75 MG Ibuprofen (Motrin) 600 mg 1X ONCE 01/08/20 15:30 01/08/20 15:31 DC 01/08/20 15:30 600 MG Info (Anti-Coagulation Monitoring By Pharmacy) 1 each PRN DAILY PRN 01/08/20 21:00 01/09/20 01:09 1 EACH Info (CONTRAST GIVEN -- Rx MONITORING) 1 each PRN DAILY PRN 01/08/20 16:30 01/10/20 16:29 Iohexol (Omnipaque 350 Mg/ml) 100 ml 1X ONCE 01/08/20 16:15 01/08/20 16:16 DC 01/08/20 16:15 100 ML Lidocaine HCl (Xylocaine-Mpf 1% 2ml Vial) 2 ml PRN 1X PRN 01/08/20 18:45 01/09/20 18:44 Lisinopril (Prinivil) 2.5 mg DAILY 01/09/20 09:00 01/09/20 08:30 2.5 MG Lorazepam (Ativan) 0.5 mg PRN Q4HRS PRN 01/08/20 20:30 Metoprolol Tartrate (Lopressor) 25 mg BID 01/08/20 21:00 01/09/20 08:29 25 MG Morphine Sulfate (Morphine Sulfate) 1 mg PRN Q10MIN PRN 01/08/20 18:45 01/09/20 18:44 Nitroglycerin (Nitrostat) 0.4 mg PRN Q5MIN PRN 01/08/20 20:30 Ondansetron HCl (Zofran) 4 mg PRN Q4HRS PRN 01/08/20 20:30 Phenylephrine HCl (PHENYLEPHRINE in 0.9% NACL PF) 1 mg STK-MED ONCE 01/08/20 20:12 01/08/20 20:12 DC Piperacillin Sod/ Tazobactam Sod (Zosyn Per Pharmacy) 1 each PRN DAILY PRN 01/08/20 16:00 Piperacillin Sod/ Tazobactam Sod 3.375 gm/Sodium Chloride 50 ml @ 100 mls/hr Q6HRS 01/09/20 00:00 01/09/20 05:23 100 MLS/HR Piperacillin Sod/ Tazobactam Sod 4.5 gm/Sodium Chloride 100 ml @ 200 mls/hr 1X ONCE 01/08/20 16:15 01/08/20 16:44 DC 01/08/20 17:13 200 MLS/HR Prochlorperazine Edisylate (Compazine) 5 mg PACU PRN PRN 01/08/20 18:45 01/09/20 18:44 Propofol (Diprivan) 200 mg STK-MED ONCE 01/08/20 20:12 01/08/20 20:12 DC Ringer's Solution 1,000 ml @ 30 mls/hr Q24H 01/08/20 18:41 01/09/20 06:40 DC 01/08/20 19:45 30 MLS/HR Sodium Monofluorophosphate (Fleet Adult) 133 ml PRN DAILY PRN 01/08/20 20:30 Sodium Chloride (Normal Saline Flush) 3 ml QSHIFT PRN 01/08/20 20:30 Vancomycin HCl (Vanco Per Pharmacy) 1 each PRN DAILY PRN 01/08/20 16:00 01/09/20 01:09 1 EACH Vancomycin HCl (Vancomycin Trough Level) 1 each 1X ONCE 01/10/20 07:30 01/10/20 07:31 Vancomycin HCl 1.75 gm/Sodium Chloride 500 ml @ 250 mls/hr 1X ONCE 01/08/20 16:15 01/08/20 18:14 DC 01/08/20 22:00 250 MLS/HR Vancomycin HCl 1 gm/Sodium Chloride 250 ml @ 250 mls/hr Q18H 01/09/20 14:00 Labs: Lab Laboratory Tests Test 01/08/20 13:43 01/08/20 15:01 01/08/20 16:44 01/08/20 17:21 White Blood Count 13.7 x10^3/uL (4.0-11.0) Red Blood Count 4.01 x10^6/uL (4.30-5.70) Hemoglobin 13.6 g/dL (13.0-17.5) Hematocrit 39.5 % (39.0-53.0) Mean Corpuscular Volume 98 fL (79-100) Mean Corpuscular Hemoglobin 34 pg (25-35) Mean Corpuscular Hemoglobin Concent 35 g/dL (31-37) Red Cell Distribution Width 13.7 % (11.5-14.5) Platelet Count 326 x10^3/uL (140-400) Neutrophils (%) (Auto) 79 % (31-73) Lymphocytes (%) (Auto) 4 % (24-48) Monocytes (%) (Auto) 16 % (0-9) Eosinophils (%) (Auto) 0 % (0-3) Basophils (%) (Auto) 1 % (0-3) Neutrophils # (Auto) 10.8 x10^3/uL (1.8-7.7) Lymphocytes # (Auto) 0.6 x10^3/uL (1.0-4.8) Monocytes # (Auto) 2.2 x10^3/uL (0.0-1.1) Eosinophils # (Auto) 0.0 x10^3/uL (0.0-0.7) Basophils # (Auto) 0.1 x10^3/uL (0.0-0.2) Segmented Neutrophils % 77 % (35-66) Band Neutrophils % 1 % (0-9) Lymphocytes % 9 % (24-48) Monocytes % 13 % (0-10) Toxic Granulation Slight Platelet Estimate Adequate (ADEQUATE) Prothrombin Time 16.9 SEC (11.7-14.0) Prothromb Time International Ratio 1.4 (0.8-1.1) Activated Partial Thromboplast Time 43 SEC (24-38) D-Dimer (Gisele) 1.77 ug/mlFEU (0.00-0.50) Sodium Level 133 mmol/L (136-145) Potassium Level 4.0 mmol/L (3.5-5.1) Chloride Level 97 mmol/L (98-107) Carbon Dioxide Level 25 mmol/L (21-32) Anion Gap 11 (6-14) Blood Urea Nitrogen 27 mg/dL (8-26) Creatinine 1.2 mg/dL (0.7-1.3) Estimated GFR (Cockcroft-Gault) 59.2 BUN/Creatinine Ratio 23 (6-20) Glucose Level 132 mg/dL (70-99) Lactic Acid Level 1.5 mmol/L (0.4-2.0) Calcium Level 9.8 mg/dL (8.5-10.1) Magnesium Level 2.3 mg/dL (1.8-2.4) Ferritin 461 ng/mL (26-388) Total Bilirubin 2.7 mg/dL (0.2-1.0) Aspartate Amino Transf (AST/SGOT) 101 U/L (15-37) Alanine Aminotransferase (ALT/SGPT) 73 U/L (16-63) Alkaline Phosphatase 275 U/L (46-116) Creatine Kinase 50 U/L (39-308) Creatine Kinase MB (Mass) 0.6 ng/mL (0.0-3.6) Creatine Kinase MB Relative Index % (0-4) Troponin I Quantitative < 0.017 ng/mL (0.000-0.055) C-Reactive Protein, Quantitative 203.3 mg/L (0-3.3) WS-Yed-N-Type Natriuretic Peptide 1456 pg/mL (0-124) Total Protein 8.7 g/dL (6.4-8.2) Albumin 2.9 g/dL (3.4-5.0) Albumin/Globulin Ratio 0.5 (1.0-1.7) Lipase 326 U/L (73-393) Procalcitonin 0.13 ng/mL (0.00-0.10) Urine Collection Type Void Urine Color [place] Urine Clarity Clear Urine pH 5.0 (<5.0-8.0) Urine Specific [place] 1.025 (1.000-1.030) Urine Protein 30 mg/dL (NEG-TRACE) Urine Glucose (UA) Negative mg/dL (NEG) Urine Ketones (Stick) Trace mg/dL (NEG) Urine Blood Negative (NEG) Urine Nitrite Negative (NEG) Urine Bilirubin Small (NEG) Urine Urobilinogen Dipstick 1.0 mg/dL (0.2 mg/dL) Urine Leukocyte Esterase Negative (NEG) Urine RBC 0 /HPF (0-2) Urine WBC Rare /HPF (0-4) Urine Squamous Epithelial Cells Few /LPF Urine Bacteria 0 /HPF (0-FEW) Urine Hyaline Casts Few /HPF Urine Mucus Marked /LPF Body Fluid Source Synovial Body Fluid Color Red Body Fluid Clarity Cloudy Body Fluid Nucleated Cells 75207 /cmm (Not Body Fluid Mononuclear WBCs (%) 7 % Body Fluid Polymorphonuclear Cells 96 % Body Fluid Total RBCs Counted 3867 /cmm (Not Established) SARS-CoV-2 Antigen (Rapid) Negative (NEGATIVE) Test 01/09/20 03:35 White Blood Count 11.4 x10^3/uL (4.0-11.0) Red Blood Count 3.40 x10^6/uL (4.30-5.70) Hemoglobin 11.4 g/dL (13.0-17.5) Hematocrit 33.7 % (39.0-53.0) Mean Corpuscular Volume 99 fL (79-100) Mean Corpuscular Hemoglobin 34 pg (25-35) Mean Corpuscular Hemoglobin Concent 34 g/dL (31-37) Red Cell Distribution Width 13.5 % (11.5-14.5) Platelet Count 259 x10^3/uL (140-400) Neutrophils (%) (Auto) 81 % (31-73) Lymphocytes (%) (Auto) 5 % (24-48) Monocytes (%) (Auto) 14 % (0-9) Eosinophils (%) (Auto) 0 % (0-3) Basophils (%) (Auto) 0 % (0-3) Neutrophils # (Auto) 9.2 x10^3/uL (1.8-7.7) Lymphocytes # (Auto) 0.6 x10^3/uL (1.0-4.8) Monocytes # (Auto) 1.6 x10^3/uL (0.0-1.1) Eosinophils # (Auto) 0.0 x10^3/uL (0.0-0.7) Basophils # (Auto) 0.0 x10^3/uL (0.0-0.2) Sodium Level 135 mmol/L (136-145) Potassium Level 4.1 mmol/L (3.5-5.1) Chloride Level 100 mmol/L (98-107) Carbon Dioxide Level 25 mmol/L (21-32) Anion Gap 10 (6-14) Blood Urea Nitrogen 19 mg/dL (8-26) Creatinine 1.1 mg/dL (0.7-1.3) Estimated GFR (Cockcroft-Gault) 65.4 BUN/Creatinine Ratio 17 (6-20) Glucose Level 127 mg/dL (70-99) Calcium Level 8.2 mg/dL (8.5-10.1) Total Bilirubin 2.1 mg/dL (0.2-1.0) Aspartate Amino Transf (AST/SGOT) 185 U/L (15-37) Alanine Aminotransferase (ALT/SGPT) 93 U/L (16-63) Alkaline Phosphatase 251 U/L (46-116) Total Protein 7.1 g/dL (6.4-8.2) Albumin 2.2 g/dL (3.4-5.0) Albumin/Globulin Ratio 0.4 (1.0-1.7) Plan: Plan of Care Patient seen and examined ID consult dictated Thank you ROXANN PENA MD Jan 09, 2020 11:08
--- NOTE | 2020-01-09 11:39 | CONS ---
DATE OF CONSULTATION: 01/09/2020 REFERRING PHYSICIAN: Valentino Lauren MD REASON FOR CONSULTATION: Left septic knee, antibiotic management. HISTORY OF PRESENT ILLNESS: A 74-year-old male, who presented to the ER on 01/08/2020 with complaints of pain in the joints, mainly in the left wrist, left shoulder, and left elbow with subsequent pain in both the knees, but mainly over the left knee. The patient was playing with his dog and the dog fell a couple of days ago, after which he sprained his left wrist with swelling, which gradually moved to the left elbow and to the shoulder. Subsequently, he noticed that the left knee started swelling. He denied any cough, fevers, chills, chest pain, shortness of breath, abdominal pain, nausea, vomiting, diarrhea, symptoms, generalized weakness. The patient was febrile at 101. White count was elevated at 13.7. LFTs were elevated. CK was 50. Troponin was normal. BNP was 1456. Lipase was 326. Lactate was normal. Procalcitonin was 0.13. He underwent synovial aspirate, which showed 59,600 wbc's with 96% polymorphs and total rbc was 3867. COVID was negative. The patient underwent chest x-ray, which was negative for infiltrates. Head CT was negative for any acute process. Left knee x-ray showed small joint effusion. Ultrasound of the lower extremity showed no DVT. Chest CTA showed no PE or infiltrate. His D-dimer was high. The patient underwent left knee arthroscopy with synovial debridement and partial medial and lateral meniscectomy for medial and lateral meniscal tear and calcium pyrophosphate deposition disease intraoperatively. The patient was started on IV vanc and Zosyn. ID consult has been requested for antibiotic management. Today, the patient states his postop pain is under control. He denies any fevers, chills, nausea, vomiting, diarrhea, abdominal pain, shortness of breath, cough, symptoms. PAST MEDICAL HISTORY: AFib, CHF, former smoker, ETOH dependence, history of inguinal hernia repair, cardiac cath, hyperlipidemia, osteoarthritis. PAST SURGICAL HISTORY: As above. Cataract removal. SOCIAL HISTORY: Nonsmoker, history of ETOH use. FAMILY HISTORY: As per HPI. CURRENT MEDICATION: IV vanc and Zosyn. Other medications reviewed in medication list. REVIEW OF SYSTEMS: Negative except for above in HPI. PHYSICAL EXAMINATION: VITAL SIGNS: T-max 101.2, current temperature 99.4, pulse 61, respirations 16, blood pressure 131/71, oxygen saturation 97% on room air. GENERAL: Alert and oriented x 3, pleasant male, lying in bed comfortably, in no acute distress. HEENT: Normocephalic, atraumatic, anicteric. NECK: Supple. No JVD. LUNGS: Clear bilaterally. No wheezing. HEART: S1, S2. No gallops or murmurs. ABDOMEN: Soft, nontender, nondistended. No rebound. No guarding. EXTREMITIES: Dressing in place, intact, dry, not taken down. Moves toes. Right lower extremity: No abnormality noted. CENTRAL NERVOUS SYSTEM: Alert and oriented x 3, grossly nonfocal. PSYCHIATRIC: Cooperative, appropriate mood and affect. LABORATORY DATA: Synovial fluid: WBC 59,600; polymorphs 96; total rbc 3867. Sodium 135, potassium 4.1, chloride 100, bicarb 25, BUN 19, creatinine 1.1. Glucose 127. Lactate 1.5. Calcium 8.2. Ferritin 461. C-reactive protein 23. LFTs: Total bilirubin 2.1, AST 185, ALT 93, alk phos 251. Albumin 2.2. Procalcitonin 0.13. WBC 11.4; was 13.7, hemoglobin 11.4, hematocrit 33.7, platelets 259. UA: Leukocyte esterase negative. COVID-19 negative. Micro: Synovial fluid culture pending at this time. Blood culture pending at this time. IMAGIN. Chest x-ray as above. 2. CT head as above. 3. Left knee x-ray as above. 4. Left lower extremity ultrasound as above. 5. Chest CT as above. IMPRESSION: 1. Fever. 2. Leukocytosis. 3. Left knee pain with effusion, could be inflammatory and/or possible secondary infectious etiology, status post left knee arthroscopy with synovial debridement and partial medial and lateral meniscectomy for medial and lateral meniscal tear and calcium pyrophosphate deposition disease. 4. Abnormal liver function tests. 5. History of atrial fibrillation with congestive heart failure. 6. Arthralgias. 7. History of ETOH abuse. 8. COVID-19 negative. RECOMMENDATIONS: 1. Continue empiric IV vanc and Zosyn for now. 2. Monitor renal functions closely. Pharmacy to adjust dose of vancomycin per pharmacy protocol. 3. Follow up synovial fluid cultures 4. Follow up labs and cultures. 5. Continue local wound care as directed. 6. We will obtain uric acid and add crystal to synovial fluid. Discuss with micro lab. 7. Continue supportive care. Discuss with nursing staff. Thank you for allowing me to participate in this patient's care. If you have any questions, do not hesitate to contact me. ROXANN PENA MD DR: BERLIN/judd JOB#: [id number] / [id number] RACHAEL
--- NOTE | 2020-01-09 12:16 | PDOC ---
[employer] PROGRESS NOTE Chief Complaint Chief Complaint Septic left knee Dilated cardiomyopathy A-Fib, CHF inguinal hernia repair, CARDIAC CATH Previous tobacco abuse History of Present Illness History of Present Illness 01/09/20 Patient seen and examined Discussed with RN Chart reviewed Doing well Covid (-) Vitals/I&O Vitals/I&O: Vital Signs Date Time Temp Pulse Resp B/P (MAP) Pulse Ox O2 Delivery O2 Flow Rate FiO2 01/09/20 11:25 Room Air 01/09/20 11:00 98.0 101 18 151/79 (103) 94 98.0 01/08/20 21:30 10 I & O 01/08/20 01/08/20 01/09/20 15:00 23:00 07:00 Intake Total 1500 ml 270 ml Output Total 10 ml 350 ml Balance 1490 ml -80 ml Physical Exam General: Alert, Oriented X3, Cooperative, No acute distress Heart: Regular rate, Normal S1, Normal S2, No murmurs Lungs: Clear, Other Abdomen: Normal bowel sounds, Soft, No masses Extremities: No cyanosis, Other (Left knee with clean dry intact dressing) Skin: No significant lesion Labs Labs: Laboratory Tests Test 01/08/20 13:43 01/08/20 15:01 01/08/20 16:44 01/08/20 17:21 White Blood Count 13.7 x10^3/uL (4.0-11.0) Red Blood Count 4.01 x10^6/uL (4.30-5.70) Hemoglobin 13.6 g/dL (13.0-17.5) Hematocrit 39.5 % (39.0-53.0) Mean Corpuscular Volume 98 fL (79-100) Mean Corpuscular Hemoglobin 34 pg (25-35) Mean Corpuscular Hemoglobin Concent 35 g/dL (31-37) Red Cell Distribution Width 13.7 % (11.5-14.5) Platelet Count 326 x10^3/uL (140-400) Neutrophils (%) (Auto) 79 % (31-73) Lymphocytes (%) (Auto) 4 % (24-48) Monocytes (%) (Auto) 16 % (0-9) Eosinophils (%) (Auto) 0 % (0-3) Basophils (%) (Auto) 1 % (0-3) Neutrophils # (Auto) 10.8 x10^3/uL (1.8-7.7) Lymphocytes # (Auto) 0.6 x10^3/uL (1.0-4.8) Monocytes # (Auto) 2.2 x10^3/uL (0.0-1.1) Eosinophils # (Auto) 0.0 x10^3/uL (0.0-0.7) Basophils # (Auto) 0.1 x10^3/uL (0.0-0.2) Segmented Neutrophils % 77 % (35-66) Band Neutrophils % 1 % (0-9) Lymphocytes % 9 % (24-48) Monocytes % 13 % (0-10) Toxic Granulation Slight Platelet Estimate Adequate (ADEQUATE) Prothrombin Time 16.9 SEC (11.7-14.0) Prothromb Time International Ratio 1.4 (0.8-1.1) Activated Partial Thromboplast Time 43 SEC (24-38) D-Dimer (Gisele) 1.77 ug/mlFEU (0.00-0.50) Sodium Level 133 mmol/L (136-145) Potassium Level 4.0 mmol/L (3.5-5.1) Chloride Level 97 mmol/L (98-107) Carbon Dioxide Level 25 mmol/L (21-32) Anion Gap 11 (6-14) Blood Urea Nitrogen 27 mg/dL (8-26) Creatinine 1.2 mg/dL (0.7-1.3) Estimated GFR (Cockcroft-Gault) 59.2 BUN/Creatinine Ratio 23 (6-20) Glucose Level 132 mg/dL (70-99) Lactic Acid Level 1.5 mmol/L (0.4-2.0) Calcium Level 9.8 mg/dL (8.5-10.1) Magnesium Level 2.3 mg/dL (1.8-2.4) Ferritin 461 ng/mL (26-388) Total Bilirubin 2.7 mg/dL (0.2-1.0) Aspartate Amino Transf (AST/SGOT) 101 U/L (15-37) Alanine Aminotransferase (ALT/SGPT) 73 U/L (16-63) Alkaline Phosphatase 275 U/L (46-116) Creatine Kinase 50 U/L (39-308) Creatine Kinase MB (Mass) 0.6 ng/mL (0.0-3.6) Creatine Kinase MB Relative Index % (0-4) Troponin I Quantitative < 0.017 ng/mL (0.000-0.055) C-Reactive Protein, Quantitative 203.3 mg/L (0-3.3) XM-Jax-I-Type Natriuretic Peptide 1456 pg/mL (0-124) Total Protein 8.7 g/dL (6.4-8.2) Albumin 2.9 g/dL (3.4-5.0) Albumin/Globulin Ratio 0.5 (1.0-1.7) Lipase 326 U/L (73-393) Procalcitonin 0.13 ng/mL (0.00-0.10) Urine Collection Type Void Urine Color [place] Urine Clarity Clear Urine pH 5.0 (<5.0-8.0) Urine Specific [place] 1.025 (1.000-1.030) Urine Protein 30 mg/dL (NEG-TRACE) Urine Glucose (UA) Negative mg/dL (NEG) Urine Ketones (Stick) Trace mg/dL (NEG) Urine Blood Negative (NEG) Urine Nitrite Negative (NEG) Urine Bilirubin Small (NEG) Urine Urobilinogen Dipstick 1.0 mg/dL (0.2 mg/dL) Urine Leukocyte Esterase Negative (NEG) Urine RBC 0 /HPF (0-2) Urine WBC Rare /HPF (0-4) Urine Squamous Epithelial Cells Few /LPF Urine Bacteria 0 /HPF (0-FEW) Urine Hyaline Casts Few /HPF Urine Mucus Marked /LPF Body Fluid Source Synovial Body Fluid Color Red Body Fluid Clarity Cloudy Body Fluid Nucleated Cells 76952 /cmm (Not Body Fluid Mononuclear WBCs (%) 7 % Body Fluid Polymorphonuclear Cells 96 % Body Fluid Total RBCs Counted 3867 /cmm (Not Established) SARS-CoV-2 Antigen (Rapid) Negative (NEGATIVE) Test 01/09/20 03:35 White Blood Count 11.4 x10^3/uL (4.0-11.0) Red Blood Count 3.40 x10^6/uL (4.30-5.70) Hemoglobin 11.4 g/dL (13.0-17.5) Hematocrit 33.7 % (39.0-53.0) Mean Corpuscular Volume 99 fL (79-100) Mean Corpuscular Hemoglobin 34 pg (25-35) Mean Corpuscular Hemoglobin Concent 34 g/dL (31-37) Red Cell Distribution Width 13.5 % (11.5-14.5) Platelet Count 259 x10^3/uL (140-400) Neutrophils (%) (Auto) 81 % (31-73) Lymphocytes (%) (Auto) 5 % (24-48) Monocytes (%) (Auto) 14 % (0-9) Eosinophils (%) (Auto) 0 % (0-3) Basophils (%) (Auto) 0 % (0-3) Neutrophils # (Auto) 9.2 x10^3/uL (1.8-7.7) Lymphocytes # (Auto) 0.6 x10^3/uL (1.0-4.8) Monocytes # (Auto) 1.6 x10^3/uL (0.0-1.1) Eosinophils # (Auto) 0.0 x10^3/uL (0.0-0.7) Basophils # (Auto) 0.0 x10^3/uL (0.0-0.2) Sodium Level 135 mmol/L (136-145) Potassium Level 4.1 mmol/L (3.5-5.1) Chloride Level 100 mmol/L (98-107) Carbon Dioxide Level 25 mmol/L (21-32) Anion Gap 10 (6-14) Blood Urea Nitrogen 19 mg/dL (8-26) Creatinine 1.1 mg/dL (0.7-1.3) Estimated GFR (Cockcroft-Gault) 65.4 BUN/Creatinine Ratio 17 (6-20) Glucose Level 127 mg/dL (70-99) Calcium Level 8.2 mg/dL (8.5-10.1) Total Bilirubin 2.1 mg/dL (0.2-1.0) Aspartate Amino Transf (AST/SGOT) 185 U/L (15-37) Alanine Aminotransferase (ALT/SGPT) 93 U/L (16-63) Alkaline Phosphatase 251 U/L (46-116) Total Protein 7.1 g/dL (6.4-8.2) Albumin 2.2 g/dL (3.4-5.0) Albumin/Globulin Ratio 0.4 (1.0-1.7) Assessment and Plan Assessmemt and Plan Problems Medical Problems: (1) Fever Status: Acute (2) Pain and swelling of left knee Status: Acute (3) Person under investigation for COVID-19 Status: Acut Postop day 1 septic knee (Left knee arthroscopy with synovial debridement and partial medial and lateral meniscectomy) Dilated cardiomyopathy A-Fib, CHF Inguinal hernia repair, CARDIAC CATH Previous tobacco abuse Intractable pain Plan: - Continue IV antibiotics - Wound care - Pain management - Homemeds - DVT prophylaxis - PTOT - Full code - Appreciate subspecialists input Comment Review of Relevant I have reviewed the following items meenakshi (where applicable) has been applied. Medications: Current Medications Medications (Trade) Dose Ordered Sig/Lenin Route PRN Reason Start Time Stop Time Status Last Admin Dose Admin Sodium Chloride 1,000 ml @ 1,000 mls/hr 1X ONCE IV 01/08/20 15:30 01/08/20 16:29 DC 01/08/20 15:24 Ibuprofen (Motrin) 600 mg 1X ONCE PO 01/08/20 15:30 01/08/20 15:31 DC 01/08/20 15:30 Vancomycin HCl (Vanco Per Pharmacy) 1 each PRN DAILY PRN MC SEE COMMENTS 01/08/20 16:00 01/09/20 11:24 Vancomycin HCl 1.75 gm/Sodium Chloride 500 ml @ 250 mls/hr 1X ONCE IV 01/08/20 16:15 01/08/20 18:14 DC 01/08/20 22:00 Piperacillin Sod/ Tazobactam Sod 4.5 gm/Sodium Chloride 100 ml @ 200 mls/hr 1X ONCE IV 01/08/20 16:15 01/08/20 16:44 DC 01/08/20 17:13 Iohexol (Omnipaque 350 Mg/ml) 100 ml 1X ONCE IV 01/08/20 16:15 01/08/20 16:16 DC 01/08/20 16:15 Ondansetron HCl (Zofran) 4 mg PRN Q6HRS PRN IV NAUSEA/VOMITING 01/08/20 18:45 01/09/20 18:44 01/09/20 11:24 Ringer's Solution 1,000 ml @ 30 mls/hr Q24H IV 01/08/20 18:41 01/09/20 06:40 DC 01/08/20 19:45 Furosemide (Lasix) 40 mg DAILY PO 01/09/20 09:00 01/09/20 08:29 Lisinopril (Prinivil) 2.5 mg DAILY PO 01/09/20 09:00 01/09/20 08:30 Metoprolol Tartrate (Lopressor) 25 mg BID PO 01/08/20 21:00 01/09/20 08:29 Hydromorphone HCl (Dilaudid) 0.75 mg PRN Q3HRS PRN IV SEVERE PAIN 7-01/08/20 20:30 01/09/20 11:25 Info (Anti-Coagulation Monitoring By Pharmacy) 1 each PRN DAILY PRN MC SEE COMMENTS 01/08/20 21:00 01/09/20 11:21 Apixaban (Eliquis) 5 mg BID PO 01/09/20 09:00 01/09/20 08:28 Bupivacaine HCl/ Epinephrine Bitart (Sensorcain-Epi 0.5%-1:052189 Mpf) 30 ml STK-MED ONCE .ROUTE 01/08/20 21:19 01/08/20 21:19 DC 01/08/20 21:20 Piperacillin Sod/ Tazobactam Sod 3.375 gm/Sodium Chloride 50 ml @ 100 mls/hr Q6HRS IV 01/09/20 00:00 01/09/20 05:23 Justicifation of Admission Dx: Justifications for Admission: Justification of Admission Dx: Yes CHF: Cardiac Arrhythmias Sepsis: Infection Cellulitis: Cellulitis EVELIA UNDERWOOD III DO Jan 09, 2020 12:16
--- NOTE | 2020-01-09 12:28 | PDOC2 ---
BEENA DE GUZMAN SHAREPOINT SPECIALIST 01/09/20 1228: CARDIAC CONSULT DATE OF CONSULT Date of Consult DATE: 01/09/20 TIME: 0830 REASON FOR CONSULT Reason for Consult: cardiomyopathy, fever REFERRING PHYSICIAN Referring Physician: Fullbright SOURCE Source: Chart review, Patient HISTORY OF PRESENT ILLNESS HISTORY OF PRESENT ILLNESS This is a pleasant 74 yo male admitted for complains of left knee pain. He twisted his knee few days ago due to his small dog as he tried to avoid the dog. He then later noted swelling and increasing pain to his left knee. He did injure his knee in remote past. Suspected knee and just had arthroscopic procedure last night which he tolerated well. The consult is for cardiomyopathy. He is significant for NICM and has PAFIB and had outpt CVN in October. He denies any chest pain, SOA, peripheral edema and has been doing well till his knee got hurt. He is compliant with his medications. PAST MEDICAL HISTORY Cardiovascular: AFIB (with prior CVN), CAD (mild CAD), HTN, Other (NICM) Pulmonary: No pertinent hx CENTRAL NERVOUS SYSTEM: Other (No pertinent history) GI: No pertinent hx Heme/Onc: Other (chronic eliquis use) Hepatobiliary: No pertinent hx Psych: No pertinent hx Musculoskeletal: Osteoarthritis Rheumatologic: No pertinent hx Infectious disease: No pertinent hx ENT: No pertinent hx Renal/: No pertinent hx Endocrine: No pertinent hx PAST SURGICAL HISTORY Past Surgical History: Cataract Removal, Hernia Repair (umbilical) FAMILY HISTORY Family History mother young from rheumatic fever SOCIAL HISTORY Smoke: No ALCOHOL: none Drugs: None Lives: with Family CURRENT MEDICATIONS CURRENT MEDICATIONS Current Medications Medications (Trade) Dose Ordered Sig/Lenin Route PRN Reason Start Time Stop Time Status Last Admin Dose Admin Sodium Chloride 1,000 ml @ 1,000 mls/hr 1X ONCE IV 01/08/20 15:30 01/08/20 16:29 DC 01/08/20 15:24 Ibuprofen (Motrin) 600 mg 1X ONCE PO 01/08/20 15:30 01/08/20 15:31 DC 01/08/20 15:30 Vancomycin HCl (Vanco Per Pharmacy) 1 each PRN DAILY PRN MC SEE COMMENTS 01/08/20 16:00 01/09/20 11:24 Vancomycin HCl 1.75 gm/Sodium Chloride 500 ml @ 250 mls/hr 1X ONCE IV 01/08/20 16:15 01/08/20 18:14 DC 01/08/20 22:00 Piperacillin Sod/ Tazobactam Sod 4.5 gm/Sodium Chloride 100 ml @ 200 mls/hr 1X ONCE IV 01/08/20 16:15 01/08/20 16:44 DC 01/08/20 17:13 Iohexol (Omnipaque 350 Mg/ml) 100 ml 1X ONCE IV 01/08/20 16:15 01/08/20 16:16 DC 01/08/20 16:15 Ondansetron HCl (Zofran) 4 mg PRN Q6HRS PRN IV NAUSEA/VOMITING 01/08/20 18:45 01/09/20 18:44 01/09/20 11:24 Ringer's Solution 1,000 ml @ 30 mls/hr Q24H IV 01/08/20 18:41 01/09/20 06:40 DC 01/08/20 19:45 Furosemide (Lasix) 40 mg DAILY PO 01/09/20 09:00 01/09/20 08:29 Lisinopril (Prinivil) 2.5 mg DAILY PO 01/09/20 09:00 01/09/20 08:30 Metoprolol Tartrate (Lopressor) 25 mg BID PO 01/08/20 21:00 01/09/20 08:29 Hydromorphone HCl (Dilaudid) 0.75 mg PRN Q3HRS PRN IV SEVERE PAIN 7-10 01/08/20 20:30 01/09/20 11:25 Info (Anti-Coagulation Monitoring By Pharmacy) 1 each PRN DAILY PRN MC SEE COMMENTS 01/08/20 21:00 01/09/20 11:21 Apixaban (Eliquis) 5 mg BID PO 01/09/20 09:00 01/09/20 08:28 Bupivacaine HCl/ Epinephrine Bitart (Sensorcain-Epi 0.5%-1:460277 Mpf) 30 ml STK-MED ONCE .ROUTE 01/08/20 21:19 01/08/20 21:19 DC 01/08/20 21:20 Piperacillin Sod/ Tazobactam Sod 3.375 gm/Sodium Chloride 50 ml @ 100 mls/hr Q6HRS IV 01/09/20 00:00 01/09/20 05:23 ALLERGIES ALLERGIES: Coded Allergies: No Known Drug Allergies (Unverified , 10/29/19) ROS Review of System 14 point ROS evaluated with pertinent positives noted per HPI PHYSICAL EXAM General: Alert, Oriented X3, Cooperative, No acute distress HEENT: Atraumatic, Mucous membr. moist/pink Lungs: Clear to auscultation, Normal air movement Heart: Other (Sinus tach with intermittent AFIB bursts) Abdomen: Soft, No tenderness Extremities: No cyanosis, No edema, Other (left knee with dressing and MEY wrap D/I) Skin: No breakdown, Other (S/P ;eft knee arthroscopy) Neuro: Normal speech, Sensation intact Psych/Mental Status: Mental status NL, Mood NL MUSCULOSKELETAL: Osteoarthritic changes both hands VITALS/I&O VITALS/I&O: Vital Signs Date Time Temp Pulse Resp B/P (MAP) Pulse Ox O2 Delivery O2 Flow Rate FiO2 01/09/20 11:25 Room Air 01/09/20 11:00 98.0 101 18 151/79 (103) 94 98.0 01/08/20 21:30 10 I & O 01/08/20 01/08/20 01/09/20 15:00 23:00 07:00 Intake Total 1500 ml 270 ml Output Total 10 ml 350 ml Balance 1490 ml -80 ml LABS Lab: Laboratory Tests Test 01/08/20 13:43 01/08/20 15:01 01/08/20 16:44 01/08/20 17:21 White Blood Count 13.7 x10^3/uL (4.0-11.0) H Red Blood Count 4.01 x10^6/uL (4.30-5.70) L Hemoglobin 13.6 g/dL (13.0-17.5) Hematocrit 39.5 % (39.0-53.0) Mean Corpuscular Volume 98 fL (79-100) Mean Corpuscular Hemoglobin 34 pg (25-35) Mean Corpuscular Hemoglobin Concent 35 g/dL (31-37) Red Cell Distribution Width 13.7 % (11.5-14.5) Platelet Count 326 x10^3/uL (140-400) Neutrophils (%) (Auto) 79 % (31-73) H Lymphocytes (%) (Auto) 4 % (24-48) L Monocytes (%) (Auto) 16 % (0-9) H Eosinophils (%) (Auto) 0 % (0-3) Basophils (%) (Auto) 1 % (0-3) Neutrophils # (Auto) 10.8 x10^3/uL (1.8-7.7) H Lymphocytes # (Auto) 0.6 x10^3/uL (1.0-4.8) L Monocytes # (Auto) 2.2 x10^3/uL (0.0-1.1) H Eosinophils # (Auto) 0.0 x10^3/uL (0.0-0.7) Basophils # (Auto) 0.1 x10^3/uL (0.0-0.2) Segmented Neutrophils % 77 % (35-66) H Band Neutrophils % 1 % (0-9) Lymphocytes % 9 % (24-48) L Monocytes % 13 % (0-10) H Toxic Granulation Slight Platelet Estimate Adequate (ADEQUATE) Prothrombin Time 16.9 SEC (11.7-14.0) H Prothrombin Time INR 1.4 (0.8-1.1) H Activated Partial Thromboplast Time 43 SEC (24-38) H D-Dimer (Gisele) 1.77 ug/mlFEU (0.00-0.50) H Sodium Level 133 mmol/L (136-145) L Potassium Level 4.0 mmol/L (3.5-5.1) Chloride Level 97 mmol/L (98-107) L Carbon Dioxide Level 25 mmol/L (21-32) Anion Gap 11 (6-14) Blood Urea Nitrogen 27 mg/dL (8-26) H Creatinine 1.2 mg/dL (0.7-1.3) Estimated GFR (Cockcroft-Gault) 59.2 BUN/Creatinine Ratio 23 (6-20) H Glucose Level 132 mg/dL (70-99) H Lactic Acid Level 1.5 mmol/L (0.4-2.0) Calcium Level 9.8 mg/dL (8.5-10.1) Magnesium Level 2.3 mg/dL (1.8-2.4) Ferritin 461 ng/mL (26-388) H Total Bilirubin 2.7 mg/dL (0.2-1.0) H Aspartate Amino Transferase (AST) 101 U/L (15-37) H Alanine Aminotransferase (ALT) 73 U/L (16-63) H Alkaline Phosphatase 275 U/L (46-116) H Creatine Kinase 50 U/L (39-308) Creatine Kinase MB (Mass) 0.6 ng/mL (0.0-3.6) Creatine Kinase MB Relative Index % (0-4) Troponin I Quantitative < 0.017 ng/mL (0.000-0.055) C-Reactive Protein, Quantitative 203.3 mg/L (0-3.3) H JZ-Itv-I-Type Natriuretic Peptide 1456 pg/mL (0-124) H Total Protein 8.7 g/dL (6.4-8.2) H Albumin 2.9 g/dL (3.4-5.0) L Albumin/Globulin Ratio 0.5 (1.0-1.7) L Lipase 326 U/L (73-393) Procalcitonin 0.13 ng/mL (0.00-0.10) H Urine Collection Type Void Urine Color [place] Urine Clarity Clear Urine pH 5.0 (<5.0-8.0) Urine Specific [place] 1.025 (1.000-1.030) Urine Protein 30 mg/dL (NEG-TRACE) Urine Glucose (UA) Negative mg/dL (NEG) Urine Ketones (Stick) Trace mg/dL (NEG) Urine Blood Negative (NEG) Urine Nitrite Negative (NEG) Urine Bilirubin Small (NEG) Urine Urobilinogen Dipstick 1.0 mg/dL (0.2 mg/dL) Urine Leukocyte Esterase Negative (NEG) Urine RBC 0 /HPF (0-2) Urine WBC Rare /HPF (0-4) Urine Squamous Epithelial Cells Few /LPF Urine Bacteria 0 /HPF (0-FEW) Urine Hyaline Casts Few /HPF Urine Mucus Marked /LPF Body Fluid Source Synovial Body Fluid Color Red Body Fluid Clarity Cloudy Body Fluid Nucleated Cells 26878 /cmm (Not Body Fluid Mononuclear WBCs (%) 7 % Body Fluid Polymorphonuclear Cells 96 % Body Fluid Total RBCs Counted 3867 /cmm (Not Established) SARS-CoV-2 Antigen (Rapid) Negative (NEGATIVE) Test 01/09/20 03:35 White Blood Count 11.4 x10^3/uL (4.0-11.0) H Red Blood Count 3.40 x10^6/uL (4.30-5.70) L Hemoglobin 11.4 g/dL (13.0-17.5) L Hematocrit 33.7 % (39.0-53.0) L Mean Corpuscular Volume 99 fL (79-100) Mean Corpuscular Hemoglobin 34 pg (25-35) Mean Corpuscular Hemoglobin Concent 34 g/dL (31-37) Red Cell Distribution Width 13.5 % (11.5-14.5) Platelet Count 259 x10^3/uL (140-400) Neutrophils (%) (Auto) 81 % (31-73) H Lymphocytes (%) (Auto) 5 % (24-48) L Monocytes (%) (Auto) 14 % (0-9) H Eosinophils (%) (Auto) 0 % (0-3) Basophils (%) (Auto) 0 % (0-3) Neutrophils # (Auto) 9.2 x10^3/uL (1.8-7.7) H Lymphocytes # (Auto) 0.6 x10^3/uL (1.0-4.8) L Monocytes # (Auto) 1.6 x10^3/uL (0.0-1.1) H Eosinophils # (Auto) 0.0 x10^3/uL (0.0-0.7) Basophils # (Auto) 0.0 x10^3/uL (0.0-0.2) Sodium Level 135 mmol/L (136-145) L Potassium Level 4.1 mmol/L (3.5-5.1) Chloride Level 100 mmol/L (98-107) Carbon Dioxide Level 25 mmol/L (21-32) Anion Gap 10 (6-14) Blood Urea Nitrogen 19 mg/dL (8-26) Creatinine 1.1 mg/dL (0.7-1.3) Estimated GFR (Cockcroft-Gault) 65.4 BUN/Creatinine Ratio 17 (6-20) Glucose Level 127 mg/dL (70-99) H Calcium Level 8.2 mg/dL (8.5-10.1) L Total Bilirubin 2.1 mg/dL (0.2-1.0) H Aspartate Amino Transferase (AST) 185 U/L (15-37) H Alanine Aminotransferase (ALT) 93 U/L (16-63) H Alkaline Phosphatase 251 U/L (46-116) H Total Protein 7.1 g/dL (6.4-8.2) Albumin 2.2 g/dL (3.4-5.0) L Albumin/Globulin Ratio 0.4 (1.0-1.7) L Laboratory Tests 01/08/20 13:43 01/09/20 03:35 Laboratory Tests 01/08/20 13:43 01/09/20 03:35 ECHOCARDIOGRAM ECHOCARDIOGRAM <Conclusion> The Left Ventricle is borderline dilated. The systolic function is severely impaired. The Ejection Fraction is 15-20%. There is severe global hypokinesis of the left ventricle. There is mild concentric left ventricular hypertrophy. Doppler and Color Flow revealed trace aortic regurgitation. There is no significant aortic valvular stenosis. Doppler and Color-flow revealed mild mitral regurgitation. Doppler and Color Flow revealed trace tricuspid regurgitation with an estimated PAP of 41 mmHg. DATE: 08/16/19 1651 HEART CATH HEART CATH FINDINGS 1. Hemodynamics: Left ventricular end-diastolic pressure of 17 mmHg. No pullback gradient across the aortic valve. 2. Coronary angiography: a. The left main coronary artery arose from the left sinus of Valsalva, gave rise to the left anterior descending and left circumflex arteries and did not show any significant stenosis. b. The left anterior descending artery showed 30% bifurcation stenosis involving the midsegment of LAD and proximal segment of the diagonal branch. c. The left circumflex artery did not show any significant stenosis. d. The right coronary artery was a large and dominant vessel arising from the right sinus of Valsalva that showed 30% stenosis in the midsegment. Conclusion Nonobstructive coronary artery disease Recommendations Optimization of medical therapy for nonischemic cardiomyopathy and repeat 2-D echo in 3 months. DATE: 08/17/19 1405 ASSESSMENT/PLAN ASSESSMENT/PLAN 1. Left knee pain: S/P arthroscopy with debridement and meniscus tear repair 2. PAFIB: intermittent bursts 3. NICM/Chronic systolic CHF: compensated 4. HTN: mild elevated otherwise controlled Recommendations 1. Follow post op treatment per ortho. May resume eliquis when clear with ortho for stroke prevention. 2. EKG and will obtain limited TTE 3. Restart home metoprolol. ROBERTA THOMAS MD 01/09/201957: CARDIAC CONSULT ASSESSMENT/PLAN ASSESSMENT/PLAN Patient seen and examined. Agree with FISHING CAPTAIN's assessment and plan. s/p debridement and meniscus tear repair PAF with brief paroxysms of AF on tele Chr sys HF well compensated Agree with resuming OAC when OK from ortho standpoint Restart home meds and titrate for better BP control Thank you for your consultation BEENA DE GUZMAN APRN Jan 09, 2020 12:28 ROBERAT THOMAS MD Jan 09, 2020 19:58
--- NOTE | 2020-01-09 12:38 | EKG ---
[facility] [address] [place] [address] Test Date: 2020-01-09 Test Time: 12:35:34 Pat Name: SCOTT SERNA Department: Room: 244 1 Gender: M Mate Fourth: ADRIAiyana : 1945 Requested By: BEENA DE GUZMAN Order Number: [id number] Reading MD: Derick Fournier MD Measurements Intervals Nitro Rate: 101 P: [place]: QRS: -50 QRSD: 130 T: 30 QT: 352 QTc: 463 Interpretive Statements PROBABLE SUPRAVENTRICULAR TACHYCARDIA LAFB NON-SPECIFIC ST/T CHANGES Electronically Signed On 01-10-2020 11:42:32 CDT by Derick Fournier MD
--- NOTE | 2020-01-09 12:38 | PDOC ---
PULMONARY PROGRESS NOTES Vitals Vital Signs Date Time Temp Pulse Resp B/P (MAP) Pulse Ox O2 Delivery O2 Flow Rate FiO2 01/09/20 11:25 Room Air 01/09/20 11:00 98.0 101 18 151/79 (103) 94 98.0 01/08/20 21:30 10 Lungs: Clear, Other Labs Laboratory Tests Test 01/08/20 13:43 01/08/20 15:01 01/08/20 16:44 01/08/20 17:21 White Blood Count 13.7 x10^3/uL (4.0-11.0) Red Blood Count 4.01 x10^6/uL (4.30-5.70) Hemoglobin 13.6 g/dL (13.0-17.5) Hematocrit 39.5 % (39.0-53.0) Mean Corpuscular Volume 98 fL (79-100) Mean Corpuscular Hemoglobin 34 pg (25-35) Mean Corpuscular Hemoglobin Concent 35 g/dL (31-37) Red Cell Distribution Width 13.7 % (11.5-14.5) Platelet Count 326 x10^3/uL (140-400) Neutrophils (%) (Auto) 79 % (31-73) Lymphocytes (%) (Auto) 4 % (24-48) Monocytes (%) (Auto) 16 % (0-9) Eosinophils (%) (Auto) 0 % (0-3) Basophils (%) (Auto) 1 % (0-3) Neutrophils # (Auto) 10.8 x10^3/uL (1.8-7.7) Lymphocytes # (Auto) 0.6 x10^3/uL (1.0-4.8) Monocytes # (Auto) 2.2 x10^3/uL (0.0-1.1) Eosinophils # (Auto) 0.0 x10^3/uL (0.0-0.7) Basophils # (Auto) 0.1 x10^3/uL (0.0-0.2) Segmented Neutrophils % 77 % (35-66) Band Neutrophils % 1 % (0-9) Lymphocytes % 9 % (24-48) Monocytes % 13 % (0-10) Toxic Granulation Slight Platelet Estimate Adequate (ADEQUATE) Prothrombin Time 16.9 SEC (11.7-14.0) Prothromb Time International Ratio 1.4 (0.8-1.1) Activated Partial Thromboplast Time 43 SEC (24-38) D-Dimer (Gisele) 1.77 ug/mlFEU (0.00-0.50) Sodium Level 133 mmol/L (136-145) Potassium Level 4.0 mmol/L (3.5-5.1) Chloride Level 97 mmol/L (98-107) Carbon Dioxide Level 25 mmol/L (21-32) Anion Gap 11 (6-14) Blood Urea Nitrogen 27 mg/dL (8-26) Creatinine 1.2 mg/dL (0.7-1.3) Estimated GFR (Cockcroft-Gault) 59.2 BUN/Creatinine Ratio 23 (6-20) Glucose Level 132 mg/dL (70-99) Lactic Acid Level 1.5 mmol/L (0.4-2.0) Calcium Level 9.8 mg/dL (8.5-10.1) Magnesium Level 2.3 mg/dL (1.8-2.4) Ferritin 461 ng/mL (26-388) Total Bilirubin 2.7 mg/dL (0.2-1.0) Aspartate Amino Transf (AST/SGOT) 101 U/L (15-37) Alanine Aminotransferase (ALT/SGPT) 73 U/L (16-63) Alkaline Phosphatase 275 U/L (46-116) Creatine Kinase 50 U/L (39-308) Creatine Kinase MB (Mass) 0.6 ng/mL (0.0-3.6) Creatine Kinase MB Relative Index % (0-4) Troponin I Quantitative < 0.017 ng/mL (0.000-0.055) C-Reactive Protein, Quantitative 203.3 mg/L (0-3.3) SL-Tsr-P-Type Natriuretic Peptide 1456 pg/mL (0-124) Total Protein 8.7 g/dL (6.4-8.2) Albumin 2.9 g/dL (3.4-5.0) Albumin/Globulin Ratio 0.5 (1.0-1.7) Lipase 326 U/L (73-393) Procalcitonin 0.13 ng/mL (0.00-0.10) Urine Collection Type Void Urine Color [place] Urine Clarity Clear Urine pH 5.0 (<5.0-8.0) Urine Specific [place] 1.025 (1.000-1.030) Urine Protein 30 mg/dL (NEG-TRACE) Urine Glucose (UA) Negative mg/dL (NEG) Urine Ketones (Stick) Trace mg/dL (NEG) Urine Blood Negative (NEG) Urine Nitrite Negative (NEG) Urine Bilirubin Small (NEG) Urine Urobilinogen Dipstick 1.0 mg/dL (0.2 mg/dL) Urine Leukocyte Esterase Negative (NEG) Urine RBC 0 /HPF (0-2) Urine WBC Rare /HPF (0-4) Urine Squamous Epithelial Cells Few /LPF Urine Bacteria 0 /HPF (0-FEW) Urine Hyaline Casts Few /HPF Urine Mucus Marked /LPF Body Fluid Source Synovial Body Fluid Color Red Body Fluid Clarity Cloudy Body Fluid Nucleated Cells 19632 /cmm (Not Body Fluid Mononuclear WBCs (%) 7 % Body Fluid Polymorphonuclear Cells 96 % Body Fluid Total RBCs Counted 3867 /cmm (Not Established) SARS-CoV-2 Antigen (Rapid) Negative (NEGATIVE) Test 01/09/20 03:35 White Blood Count 11.4 x10^3/uL (4.0-11.0) Red Blood Count 3.40 x10^6/uL (4.30-5.70) Hemoglobin 11.4 g/dL (13.0-17.5) Hematocrit 33.7 % (39.0-53.0) Mean Corpuscular Volume 99 fL (79-100) Mean Corpuscular Hemoglobin 34 pg (25-35) Mean Corpuscular Hemoglobin Concent 34 g/dL (31-37) Red Cell Distribution Width 13.5 % (11.5-14.5) Platelet Count 259 x10^3/uL (140-400) Neutrophils (%) (Auto) 81 % (31-73) Lymphocytes (%) (Auto) 5 % (24-48) Monocytes (%) (Auto) 14 % (0-9) Eosinophils (%) (Auto) 0 % (0-3) Basophils (%) (Auto) 0 % (0-3) Neutrophils # (Auto) 9.2 x10^3/uL (1.8-7.7) Lymphocytes # (Auto) 0.6 x10^3/uL (1.0-4.8) Monocytes # (Auto) 1.6 x10^3/uL (0.0-1.1) Eosinophils # (Auto) 0.0 x10^3/uL (0.0-0.7) Basophils # (Auto) 0.0 x10^3/uL (0.0-0.2) Sodium Level 135 mmol/L (136-145) Potassium Level 4.1 mmol/L (3.5-5.1) Chloride Level 100 mmol/L (98-107) Carbon Dioxide Level 25 mmol/L (21-32) Anion Gap 10 (6-14) Blood Urea Nitrogen 19 mg/dL (8-26) Creatinine 1.1 mg/dL (0.7-1.3) Estimated GFR (Cockcroft-Gault) 65.4 BUN/Creatinine Ratio 17 (6-20) Glucose Level 127 mg/dL (70-99) Calcium Level 8.2 mg/dL (8.5-10.1) Total Bilirubin 2.1 mg/dL (0.2-1.0) Aspartate Amino Transf (AST/SGOT) 185 U/L (15-37) Alanine Aminotransferase (ALT/SGPT) 93 U/L (16-63) Alkaline Phosphatase 251 U/L (46-116) Total Protein 7.1 g/dL (6.4-8.2) Albumin 2.2 g/dL (3.4-5.0) Albumin/Globulin Ratio 0.4 (1.0-1.7) Laboratory Tests Test 01/08/20 13:43 01/08/20 15:01 01/08/20 16:44 01/08/20 17:21 White Blood Count 13.7 x10^3/uL (4.0-11.0) Red Blood Count 4.01 x10^6/uL (4.30-5.70) Hemoglobin 13.6 g/dL (13.0-17.5) Hematocrit 39.5 % (39.0-53.0) Mean Corpuscular Volume 98 fL (79-100) Mean Corpuscular Hemoglobin 34 pg (25-35) Mean Corpuscular Hemoglobin Concent 35 g/dL (31-37) Red Cell Distribution Width 13.7 % (11.5-14.5) Platelet Count 326 x10^3/uL (140-400) Neutrophils (%) (Auto) 79 % (31-73) Lymphocytes (%) (Auto) 4 % (24-48) Monocytes (%) (Auto) 16 % (0-9) Eosinophils (%) (Auto) 0 % (0-3) Basophils (%) (Auto) 1 % (0-3) Neutrophils # (Auto) 10.8 x10^3/uL (1.8-7.7) Lymphocytes # (Auto) 0.6 x10^3/uL (1.0-4.8) Monocytes # (Auto) 2.2 x10^3/uL (0.0-1.1) Eosinophils # (Auto) 0.0 x10^3/uL (0.0-0.7) Basophils # (Auto) 0.1 x10^3/uL (0.0-0.2) Segmented Neutrophils % 77 % (35-66) Band Neutrophils % 1 % (0-9) Lymphocytes % 9 % (24-48) Monocytes % 13 % (0-10) Toxic Granulation Slight Platelet Estimate Adequate (ADEQUATE) Prothrombin Time 16.9 SEC (11.7-14.0) Prothromb Time International Ratio 1.4 (0.8-1.1) Activated Partial Thromboplast Time 43 SEC (24-38) D-Dimer (Gisele) 1.77 ug/mlFEU (0.00-0.50) Sodium Level 133 mmol/L (136-145) Potassium Level 4.0 mmol/L (3.5-5.1) Chloride Level 97 mmol/L (98-107) Carbon Dioxide Level 25 mmol/L (21-32) Anion Gap 11 (6-14) Blood Urea Nitrogen 27 mg/dL (8-26) Creatinine 1.2 mg/dL (0.7-1.3) Estimated GFR (Cockcroft-Gault) 59.2 BUN/Creatinine Ratio 23 (6-20) Glucose Level 132 mg/dL (70-99) Lactic Acid Level 1.5 mmol/L (0.4-2.0) Calcium Level 9.8 mg/dL (8.5-10.1) Magnesium Level 2.3 mg/dL (1.8-2.4) Ferritin 461 ng/mL (26-388) Total Bilirubin 2.7 mg/dL (0.2-1.0) Aspartate Amino Transf (AST/SGOT) 101 U/L (15-37) Alanine Aminotransferase (ALT/SGPT) 73 U/L (16-63) Alkaline Phosphatase 275 U/L (46-116) Creatine Kinase 50 U/L (39-308) Creatine Kinase MB (Mass) 0.6 ng/mL (0.0-3.6) Creatine Kinase MB Relative Index % (0-4) Troponin I Quantitative < 0.017 ng/mL (0.000-0.055) C-Reactive Protein, Quantitative 203.3 mg/L (0-3.3) PI-Eph-M-Type Natriuretic Peptide 1456 pg/mL (0-124) Total Protein 8.7 g/dL (6.4-8.2) Albumin 2.9 g/dL (3.4-5.0) Albumin/Globulin Ratio 0.5 (1.0-1.7) Lipase 326 U/L (73-393) Procalcitonin 0.13 ng/mL (0.00-0.10) Urine Collection Type Void Urine Color [place] Urine Clarity Clear Urine pH 5.0 (<5.0-8.0) Urine Specific [place] 1.025 (1.000-1.030) Urine Protein 30 mg/dL (NEG-TRACE) Urine Glucose (UA) Negative mg/dL (NEG) Urine Ketones (Stick) Trace mg/dL (NEG) Urine Blood Negative (NEG) Urine Nitrite Negative (NEG) Urine Bilirubin Small (NEG) Urine Urobilinogen Dipstick 1.0 mg/dL (0.2 mg/dL) Urine Leukocyte Esterase Negative (NEG) Urine RBC 0 /HPF (0-2) Urine WBC Rare /HPF (0-4) Urine Squamous Epithelial Cells Few /LPF Urine Bacteria 0 /HPF (0-FEW) Urine Hyaline Casts Few /HPF Urine Mucus Marked /LPF Body Fluid Source Synovial Body Fluid Color Red Body Fluid Clarity Cloudy Body Fluid Nucleated Cells 57170 /cmm (Not Body Fluid Mononuclear WBCs (%) 7 % Body Fluid Polymorphonuclear Cells 96 % Body Fluid Total RBCs Counted 3867 /cmm (Not Established) SARS-CoV-2 Antigen (Rapid) Negative (NEGATIVE) Test 01/09/20 03:35 White Blood Count 11.4 x10^3/uL (4.0-11.0) Red Blood Count 3.40 x10^6/uL (4.30-5.70) Hemoglobin 11.4 g/dL (13.0-17.5) Hematocrit 33.7 % (39.0-53.0) Mean Corpuscular Volume 99 fL (79-100) Mean Corpuscular Hemoglobin 34 pg (25-35) Mean Corpuscular Hemoglobin Concent 34 g/dL (31-37) Red Cell Distribution Width 13.5 % (11.5-14.5) Platelet Count 259 x10^3/uL (140-400) Neutrophils (%) (Auto) 81 % (31-73) Lymphocytes (%) (Auto) 5 % (24-48) Monocytes (%) (Auto) 14 % (0-9) Eosinophils (%) (Auto) 0 % (0-3) Basophils (%) (Auto) 0 % (0-3) Neutrophils # (Auto) 9.2 x10^3/uL (1.8-7.7) Lymphocytes # (Auto) 0.6 x10^3/uL (1.0-4.8) Monocytes # (Auto) 1.6 x10^3/uL (0.0-1.1) Eosinophils # (Auto) 0.0 x10^3/uL (0.0-0.7) Basophils # (Auto) 0.0 x10^3/uL (0.0-0.2) Sodium Level 135 mmol/L (136-145) Potassium Level 4.1 mmol/L (3.5-5.1) Chloride Level 100 mmol/L (98-107) Carbon Dioxide Level 25 mmol/L (21-32) Anion Gap 10 (6-14) Blood Urea Nitrogen 19 mg/dL (8-26) Creatinine 1.1 mg/dL (0.7-1.3) Estimated GFR (Cockcroft-Gault) 65.4 BUN/Creatinine Ratio 17 (6-20) Glucose Level 127 mg/dL (70-99) Calcium Level 8.2 mg/dL (8.5-10.1) Total Bilirubin 2.1 mg/dL (0.2-1.0) Aspartate Amino Transf (AST/SGOT) 185 U/L (15-37) Alanine Aminotransferase (ALT/SGPT) 93 U/L (16-63) Alkaline Phosphatase 251 U/L (46-116) Total Protein 7.1 g/dL (6.4-8.2) Albumin 2.2 g/dL (3.4-5.0) Albumin/Globulin Ratio 0.4 (1.0-1.7) Medications Active Scripts Medications Dose Route/Sig Max Daily Dose Days Date Category Furosemide 40 Mg Tablet 1 Tab PO DAILY 08/18/19 Rx Lisinopril 5 Mg Tablet 2.5 Mg PO DAILY 08/18/19 Rx Metoprolol Tartrate 25 Mg Tablet 25 Mg PO BID 08/18/19 Rx Nitrostat (Nitroglycerin) 0.4 Mg Tab.subl 0.4 Mg SL PRN Q5MIN PRN 08/18/19 Rx Eliquis (Apixaban) 5 Mg Tablet 5 Mg PO BID 08/18/19 Rx Impression . Preoperative diagnosis: Left septic knee joint Postoperative diagnosis: Same with medial lateral meniscus tears and calcium pyrophosphate deposition disease (CPPD) Operative procedure: Left knee arthroscopy with synovial debridement and partial medial and lateral meniscectomy MAXIMO PEREYRA MD Jan 09, 2020 12:38
--- NOTE | 2020-01-09 13:01 | NUR ---
Patient EKG results: irregular rhythm, no P-wave found, abnormal left axis deviation, nonspecific intraventricular block qrst contour abnormality, consider anteroseptal myocardial damage, abnormal ecg.
--- NOTE | 2020-01-09 13:12 | NUR ---
SS following for discharge planning. SS reviewed pt chart and discussed with pt RN. Pt is from home with spouse and is currently on room air. Pt had procedure on left knee on 01/08/2020. COVID19 negative. Pt on IV Zosyn and Vancomycin. PT/OT ordered. SS will continue to follow for discharge planning.
--- NOTE | 2020-01-09 13:34 | PDOC ---
PULMONARY PROGRESS NOTES Vitals Vital Signs Date Time Temp Pulse Resp B/P (MAP) Pulse Ox O2 Delivery O2 Flow Rate FiO2 01/09/20 11:25 Room Air 01/09/20 11:00 98.0 101 18 151/79 (103) 94 98.0 01/08/20 21:30 10 Lungs: Clear, Other Labs Laboratory Tests Test 01/08/20 13:43 01/08/20 15:01 01/08/20 16:44 01/08/20 17:21 White Blood Count 13.7 x10^3/uL (4.0-11.0) Red Blood Count 4.01 x10^6/uL (4.30-5.70) Hemoglobin 13.6 g/dL (13.0-17.5) Hematocrit 39.5 % (39.0-53.0) Mean Corpuscular Volume 98 fL (79-100) Mean Corpuscular Hemoglobin 34 pg (25-35) Mean Corpuscular Hemoglobin Concent 35 g/dL (31-37) Red Cell Distribution Width 13.7 % (11.5-14.5) Platelet Count 326 x10^3/uL (140-400) Neutrophils (%) (Auto) 79 % (31-73) Lymphocytes (%) (Auto) 4 % (24-48) Monocytes (%) (Auto) 16 % (0-9) Eosinophils (%) (Auto) 0 % (0-3) Basophils (%) (Auto) 1 % (0-3) Neutrophils # (Auto) 10.8 x10^3/uL (1.8-7.7) Lymphocytes # (Auto) 0.6 x10^3/uL (1.0-4.8) Monocytes # (Auto) 2.2 x10^3/uL (0.0-1.1) Eosinophils # (Auto) 0.0 x10^3/uL (0.0-0.7) Basophils # (Auto) 0.1 x10^3/uL (0.0-0.2) Segmented Neutrophils % 77 % (35-66) Band Neutrophils % 1 % (0-9) Lymphocytes % 9 % (24-48) Monocytes % 13 % (0-10) Toxic Granulation Slight Platelet Estimate Adequate (ADEQUATE) Prothrombin Time 16.9 SEC (11.7-14.0) Prothromb Time International Ratio 1.4 (0.8-1.1) Activated Partial Thromboplast Time 43 SEC (24-38) D-Dimer (Gisele) 1.77 ug/mlFEU (0.00-0.50) Sodium Level 133 mmol/L (136-145) Potassium Level 4.0 mmol/L (3.5-5.1) Chloride Level 97 mmol/L (98-107) Carbon Dioxide Level 25 mmol/L (21-32) Anion Gap 11 (6-14) Blood Urea Nitrogen 27 mg/dL (8-26) Creatinine 1.2 mg/dL (0.7-1.3) Estimated GFR (Cockcroft-Gault) 59.2 BUN/Creatinine Ratio 23 (6-20) Glucose Level 132 mg/dL (70-99) Lactic Acid Level 1.5 mmol/L (0.4-2.0) Calcium Level 9.8 mg/dL (8.5-10.1) Magnesium Level 2.3 mg/dL (1.8-2.4) Ferritin 461 ng/mL (26-388) Total Bilirubin 2.7 mg/dL (0.2-1.0) Aspartate Amino Transf (AST/SGOT) 101 U/L (15-37) Alanine Aminotransferase (ALT/SGPT) 73 U/L (16-63) Alkaline Phosphatase 275 U/L (46-116) Creatine Kinase 50 U/L (39-308) Creatine Kinase MB (Mass) 0.6 ng/mL (0.0-3.6) Creatine Kinase MB Relative Index % (0-4) Troponin I Quantitative < 0.017 ng/mL (0.000-0.055) C-Reactive Protein, Quantitative 203.3 mg/L (0-3.3) BN-Elr-P-Type Natriuretic Peptide 1456 pg/mL (0-124) Total Protein 8.7 g/dL (6.4-8.2) Albumin 2.9 g/dL (3.4-5.0) Albumin/Globulin Ratio 0.5 (1.0-1.7) Lipase 326 U/L (73-393) Procalcitonin 0.13 ng/mL (0.00-0.10) Urine Collection Type Void Urine Color [place] Urine Clarity Clear Urine pH 5.0 (<5.0-8.0) Urine Specific [place] 1.025 (1.000-1.030) Urine Protein 30 mg/dL (NEG-TRACE) Urine Glucose (UA) Negative mg/dL (NEG) Urine Ketones (Stick) Trace mg/dL (NEG) Urine Blood Negative (NEG) Urine Nitrite Negative (NEG) Urine Bilirubin Small (NEG) Urine Urobilinogen Dipstick 1.0 mg/dL (0.2 mg/dL) Urine Leukocyte Esterase Negative (NEG) Urine RBC 0 /HPF (0-2) Urine WBC Rare /HPF (0-4) Urine Squamous Epithelial Cells Few /LPF Urine Bacteria 0 /HPF (0-FEW) Urine Hyaline Casts Few /HPF Urine Mucus Marked /LPF Body Fluid Source Synovial Body Fluid Color Red Body Fluid Clarity Cloudy Body Fluid Nucleated Cells 50138 /cmm (Not Body Fluid Mononuclear WBCs (%) 7 % Body Fluid Polymorphonuclear Cells 96 % Body Fluid Total RBCs Counted 3867 /cmm (Not Established) SARS-CoV-2 Antigen (Rapid) Negative (NEGATIVE) Test 01/09/20 03:35 White Blood Count 11.4 x10^3/uL (4.0-11.0) Red Blood Count 3.40 x10^6/uL (4.30-5.70) Hemoglobin 11.4 g/dL (13.0-17.5) Hematocrit 33.7 % (39.0-53.0) Mean Corpuscular Volume 99 fL (79-100) Mean Corpuscular Hemoglobin 34 pg (25-35) Mean Corpuscular Hemoglobin Concent 34 g/dL (31-37) Red Cell Distribution Width 13.5 % (11.5-14.5) Platelet Count 259 x10^3/uL (140-400) Neutrophils (%) (Auto) 81 % (31-73) Lymphocytes (%) (Auto) 5 % (24-48) Monocytes (%) (Auto) 14 % (0-9) Eosinophils (%) (Auto) 0 % (0-3) Basophils (%) (Auto) 0 % (0-3) Neutrophils # (Auto) 9.2 x10^3/uL (1.8-7.7) Lymphocytes # (Auto) 0.6 x10^3/uL (1.0-4.8) Monocytes # (Auto) 1.6 x10^3/uL (0.0-1.1) Eosinophils # (Auto) 0.0 x10^3/uL (0.0-0.7) Basophils # (Auto) 0.0 x10^3/uL (0.0-0.2) Sodium Level 135 mmol/L (136-145) Potassium Level 4.1 mmol/L (3.5-5.1) Chloride Level 100 mmol/L (98-107) Carbon Dioxide Level 25 mmol/L (21-32) Anion Gap 10 (6-14) Blood Urea Nitrogen 19 mg/dL (8-26) Creatinine 1.1 mg/dL (0.7-1.3) Estimated GFR (Cockcroft-Gault) 65.4 BUN/Creatinine Ratio 17 (6-20) Glucose Level 127 mg/dL (70-99) Calcium Level 8.2 mg/dL (8.5-10.1) Total Bilirubin 2.1 mg/dL (0.2-1.0) Aspartate Amino Transf (AST/SGOT) 185 U/L (15-37) Alanine Aminotransferase (ALT/SGPT) 93 U/L (16-63) Alkaline Phosphatase 251 U/L (46-116) Total Protein 7.1 g/dL (6.4-8.2) Albumin 2.2 g/dL (3.4-5.0) Albumin/Globulin Ratio 0.4 (1.0-1.7) Laboratory Tests Test 01/08/20 13:43 01/08/20 15:01 01/08/20 16:44 01/08/20 17:21 White Blood Count 13.7 x10^3/uL (4.0-11.0) Red Blood Count 4.01 x10^6/uL (4.30-5.70) Hemoglobin 13.6 g/dL (13.0-17.5) Hematocrit 39.5 % (39.0-53.0) Mean Corpuscular Volume 98 fL (79-100) Mean Corpuscular Hemoglobin 34 pg (25-35) Mean Corpuscular Hemoglobin Concent 35 g/dL (31-37) Red Cell Distribution Width 13.7 % (11.5-14.5) Platelet Count 326 x10^3/uL (140-400) Neutrophils (%) (Auto) 79 % (31-73) Lymphocytes (%) (Auto) 4 % (24-48) Monocytes (%) (Auto) 16 % (0-9) Eosinophils (%) (Auto) 0 % (0-3) Basophils (%) (Auto) 1 % (0-3) Neutrophils # (Auto) 10.8 x10^3/uL (1.8-7.7) Lymphocytes # (Auto) 0.6 x10^3/uL (1.0-4.8) Monocytes # (Auto) 2.2 x10^3/uL (0.0-1.1) Eosinophils # (Auto) 0.0 x10^3/uL (0.0-0.7) Basophils # (Auto) 0.1 x10^3/uL (0.0-0.2) Segmented Neutrophils % 77 % (35-66) Band Neutrophils % 1 % (0-9) Lymphocytes % 9 % (24-48) Monocytes % 13 % (0-10) Toxic Granulation Slight Platelet Estimate Adequate (ADEQUATE) Prothrombin Time 16.9 SEC (11.7-14.0) Prothromb Time International Ratio 1.4 (0.8-1.1) Activated Partial Thromboplast Time 43 SEC (24-38) D-Dimer (Gisele) 1.77 ug/mlFEU (0.00-0.50) Sodium Level 133 mmol/L (136-145) Potassium Level 4.0 mmol/L (3.5-5.1) Chloride Level 97 mmol/L (98-107) Carbon Dioxide Level 25 mmol/L (21-32) Anion Gap 11 (6-14) Blood Urea Nitrogen 27 mg/dL (8-26) Creatinine 1.2 mg/dL (0.7-1.3) Estimated GFR (Cockcroft-Gault) 59.2 BUN/Creatinine Ratio 23 (6-20) Glucose Level 132 mg/dL (70-99) Lactic Acid Level 1.5 mmol/L (0.4-2.0) Calcium Level 9.8 mg/dL (8.5-10.1) Magnesium Level 2.3 mg/dL (1.8-2.4) Ferritin 461 ng/mL (26-388) Total Bilirubin 2.7 mg/dL (0.2-1.0) Aspartate Amino Transf (AST/SGOT) 101 U/L (15-37) Alanine Aminotransferase (ALT/SGPT) 73 U/L (16-63) Alkaline Phosphatase 275 U/L (46-116) Creatine Kinase 50 U/L (39-308) Creatine Kinase MB (Mass) 0.6 ng/mL (0.0-3.6) Creatine Kinase MB Relative Index % (0-4) Troponin I Quantitative < 0.017 ng/mL (0.000-0.055) C-Reactive Protein, Quantitative 203.3 mg/L (0-3.3) QM-Iqk-O-Type Natriuretic Peptide 1456 pg/mL (0-124) Total Protein 8.7 g/dL (6.4-8.2) Albumin 2.9 g/dL (3.4-5.0) Albumin/Globulin Ratio 0.5 (1.0-1.7) Lipase 326 U/L (73-393) Procalcitonin 0.13 ng/mL (0.00-0.10) Urine Collection Type Void Urine Color [place] Urine Clarity Clear Urine pH 5.0 (<5.0-8.0) Urine Specific [place] 1.025 (1.000-1.030) Urine Protein 30 mg/dL (NEG-TRACE) Urine Glucose (UA) Negative mg/dL (NEG) Urine Ketones (Stick) Trace mg/dL (NEG) Urine Blood Negative (NEG) Urine Nitrite Negative (NEG) Urine Bilirubin Small (NEG) Urine Urobilinogen Dipstick 1.0 mg/dL (0.2 mg/dL) Urine Leukocyte Esterase Negative (NEG) Urine RBC 0 /HPF (0-2) Urine WBC Rare /HPF (0-4) Urine Squamous Epithelial Cells Few /LPF Urine Bacteria 0 /HPF (0-FEW) Urine Hyaline Casts Few /HPF Urine Mucus Marked /LPF Body Fluid Source Synovial Body Fluid Color Red Body Fluid Clarity Cloudy Body Fluid Nucleated Cells 54449 /cmm (Not Body Fluid Mononuclear WBCs (%) 7 % Body Fluid Polymorphonuclear Cells 96 % Body Fluid Total RBCs Counted 3867 /cmm (Not Established) SARS-CoV-2 Antigen (Rapid) Negative (NEGATIVE) Test 01/09/20 03:35 White Blood Count 11.4 x10^3/uL (4.0-11.0) Red Blood Count 3.40 x10^6/uL (4.30-5.70) Hemoglobin 11.4 g/dL (13.0-17.5) Hematocrit 33.7 % (39.0-53.0) Mean Corpuscular Volume 99 fL (79-100) Mean Corpuscular Hemoglobin 34 pg (25-35) Mean Corpuscular Hemoglobin Concent 34 g/dL (31-37) Red Cell Distribution Width 13.5 % (11.5-14.5) Platelet Count 259 x10^3/uL (140-400) Neutrophils (%) (Auto) 81 % (31-73) Lymphocytes (%) (Auto) 5 % (24-48) Monocytes (%) (Auto) 14 % (0-9) Eosinophils (%) (Auto) 0 % (0-3) Basophils (%) (Auto) 0 % (0-3) Neutrophils # (Auto) 9.2 x10^3/uL (1.8-7.7) Lymphocytes # (Auto) 0.6 x10^3/uL (1.0-4.8) Monocytes # (Auto) 1.6 x10^3/uL (0.0-1.1) Eosinophils # (Auto) 0.0 x10^3/uL (0.0-0.7) Basophils # (Auto) 0.0 x10^3/uL (0.0-0.2) Sodium Level 135 mmol/L (136-145) Potassium Level 4.1 mmol/L (3.5-5.1) Chloride Level 100 mmol/L (98-107) Carbon Dioxide Level 25 mmol/L (21-32) Anion Gap 10 (6-14) Blood Urea Nitrogen 19 mg/dL (8-26) Creatinine 1.1 mg/dL (0.7-1.3) Estimated GFR (Cockcroft-Gault) 65.4 BUN/Creatinine Ratio 17 (6-20) Glucose Level 127 mg/dL (70-99) Calcium Level 8.2 mg/dL (8.5-10.1) Total Bilirubin 2.1 mg/dL (0.2-1.0) Aspartate Amino Transf (AST/SGOT) 185 U/L (15-37) Alanine Aminotransferase (ALT/SGPT) 93 U/L (16-63) Alkaline Phosphatase 251 U/L (46-116) Total Protein 7.1 g/dL (6.4-8.2) Albumin 2.2 g/dL (3.4-5.0) Albumin/Globulin Ratio 0.4 (1.0-1.7) Medications Active Scripts Medications Dose Route/Sig Max Daily Dose Days Date Category Furosemide 40 Mg Tablet 1 Tab PO DAILY 08/18/19 Rx Lisinopril 5 Mg Tablet 2.5 Mg PO DAILY 08/18/19 Rx Metoprolol Tartrate 25 Mg Tablet 25 Mg PO BID 08/18/19 Rx Nitrostat (Nitroglycerin) 0.4 Mg Tab.subl 0.4 Mg SL PRN Q5MIN PRN 08/18/19 Rx Eliquis (Apixaban) 5 Mg Tablet 5 Mg PO BID 08/18/19 Rx Impression . Full note dictated, no evidence of PE. SARS-CoV-2 negative We will sign off call if needed Preoperative diagnosis: Left septic knee joint Postoperative diagnosis: Same with medial lateral meniscus tears and calcium pyrophosphate deposition disease (CPPD) Operative procedure: Left knee arthroscopy with synovial debridement and partial medial and lateral meniscectomy MAXIMO PEREYRA MD Jan 09, 2020 13:34
--- NOTE | 2020-01-09 13:53 | CONS ---
DATE OF CONSULTATION: 01/09/2020 ATTENDING PHYSICIAN: Dr. Lauren. REASON FOR CONSULTATION: The patient seen in pulmonary consultation at the request of Dr. Lauren for possible COVID-19 fever. HISTORY OF PRESENT ILLNESS: The patient is a 74-year-old that was admitted after having some swelling and increasing pain in the left knee. He underwent surgical intervention sometime last week, arthroscopic surgery. The patient came in with fever. No increasing shortness of breath. He has never smoked. There is no history of COPD, asthma, DVT or pulmonary embolism. PAST MEDICAL HISTORY: Chronic AFib, coronary artery disease, hypertension, nonischemic cardiomyopathy. PAST SURGICAL HISTORY: Previous knee surgery. FAMILY HISTORY: Mother of complications of rheumatic fever. SOCIAL HISTORY: He never smoked. ALLERGIES: No known drug allergies. REVIEW OF SYSTEMS: As indicated above, otherwise, a 10-point system was reviewed and negative. PHYSICAL EXAMINATION: VITAL SIGNS: When he presented, he had a fever of 101.2. He is afebrile now. HEENT: Eyes, the sclerae were nonicteric. NECK: Jugular venous distention was not elevated. No lymphadenopathy. CHEST: Full expansion. LUNGS: Coarse breath sounds, no wheezes. CARDIOVASCULAR: Regular rate and rhythm with S1, S2, no S3. ABDOMEN: Soft, nontender, nondistended. EXTREMITIES: No clubbing, cyanosis or edema. LABORATORY DATA: Reviewed. White count was elevated. Hemoglobin and hematocrit were noted. Electrolytes were noted. CT angiogram dated 01/08/2020, no infiltrates, no PE. IMPRESSION: 1. Fever secondary to left septic knee joint. 2. Status post left knee arthroscopic with synovial debridement and partial medial and lateral meniscectomy. 3. SARS-CoV-[address] angiogram, no evidence of pulmonary embolism. 5. Venous Dopplers of lower extremities negative for deep venous thrombosis. 6. Paroxysmal atrial fibrillation. PLAN: Pulmonary status appears to be compensated, SARS-CoV-[address] angiogram revealed no evidence of infiltrates or pulmonary embolism. I will sign off. Please call if needed. MAXIMO PEREYRA MD DR: ADRI/judd JOB#: [id number] / [id number]
[2020-01-09] MEDS ORDERED: VANCOMYCIN 1 GM in IV NORMAL SALINE 250ML 250 ML IV SCH (14:00)
[2020-01-09 15:00] VITALS: BP 107/61
[2020-01-09 19:00] VITALS: BP 95/57
[2020-01-09] MEDS ORDERED: IOHEXOL 350 MG/ML 100 ML VIAL. ONE (19:43)
[2020-01-09] MEDS: LACTOBACILLUS RHAMNOSUS GG 1 CAPSULE. PO SCH (20:21)
[2020-01-09] MEDS: ACETAMINOPHEN 325 MG TABLET. PO PRN (20:22)
[2020-01-09 22:55] VITALS: BP 116/49
[2020-01-10] VITALS (7 sets, daily range): BP systolic 83–121; BP diastolic 40–71
[2020-01-10] MEDS: ONDANSETRON PF 4 MG/2 ML VIAL. IV PRN ×3 (01:39→16:26)
[2020-01-10] MEDS: HYDROmorphone 2 MG/ML VIAL IV PRN ×4 (01:40→22:11)
[2020-01-10] MEDS: PIPERACILLIN/TAZOBACTAM 3.375 GM in IV NORMAL SALINE 50ML 50 ML IV SCH ×4 (05:08→23:40)
[2020-01-10 08:36] LABS: VANC TR 9.4 mcg/mL (10.0-20.0)
[2020-01-10] MEDS: VANCOMYCIN PER PHARMACY MC PRN ×2 (08:44→12:46)
[2020-01-10] MEDS: LACTOBACILLUS RHAMNOSUS GG 1 CAPSULE. PO SCH ×2 (08:47→20:45)
[2020-01-10] MEDS: APIXABAN 5 MG TABLET. PO SCH ×2 (08:47→20:44)
[2020-01-10] MEDS: FUROSEMIDE 40 MG TABLET. PO SCH (08:48)
[2020-01-10] MEDS: VANCOMYCIN 1 GM in IV NORMAL SALINE 250ML 250 ML IV SCH ×2 (08:48→20:54)
[2020-01-10] MEDS: METOPROLOL TART IMMED RELEASE 25 MG TABLET. PO SCH ×3 (08:48→20:46)
[2020-01-10] MEDS: LISINOPRIL 5 MG TABLET. PO SCH (08:48)
--- NOTE | 2020-01-10 08:48 | NUR ---
Pharmacy Vancomycin Dosing Note S: Consulted to monitor and dose vancomycin started 01/08/20. O: SCOTT SERNA is a 74 year old M with SEPTIC KNEE . Other Antibiotics: ZOSYN 3.375 GM Q6H LABS: Last BUN: 19 Last Creatinine: 1.1 Creatinine Clearance: 57 mL/min Last WBC: 11.4 Last Procalcitonin: 0.13 Tmax (past 24 hours): 99.4 Microbiology: Blood: ngtd Knee: no organisms seen I/O: 1240/1350 Drug Levels: Last Trough level: 9.4 on 01/10/20 at 0800 Last dose given 01/09/20 at 1414 Vancomycin Dosing: Dosing Weight: Actual Target Trough: 15-20 A: Based on: trough P: 1. Change Vancomycin to 1000 mg IV q12h 2. Follow up Trough level to be ordered as needed 3. Pharmacy will continue to monitor, follow and adjust therapy as needed. Enid Hoskins RPH, 01/10/20 [id number]
--- NOTE | 2020-01-10 09:04 | PDOC ---
Infectious Disease Note Subjective: Subjective pt says feels better postop pain is under control less pain in lt hand,elbow and shoulder Vital Signs: Vital Signs Vital Signs Date Time Temp Pulse Resp B/P (MAP) Pulse Ox O2 Delivery O2 Flow Rate FiO2 01/10/20 07:00 99.4 70 17 94/55 (68) 97 Room Air 99.4 Physical Exam: PHYSICAL EXAM GENERAL: Alert and oriented x 3, pleasant male, lying in bed comfortably, in no acute distress. HEENT: Normocephalic, atraumatic, anicteric. NECK: Supple. No JVD. LUNGS: Clear bilaterally. No wheezing. HEART: S1, S2. No gallops or murmurs. ABDOMEN: Soft, nontender, nondistended. No rebound. No guarding. EXTREMITIES: Dressing in place, intact, dry, not taken down. Moves toes. Right lower extremity: No abnormality noted. CENTRAL NERVOUS SYSTEM: Alert and oriented x 3, grossly nonfocal. PSYCHIATRIC: Cooperative, appropriate mood and affect. Medications: Inpatient Meds: Current Medications Medications (Trade) Dose Ordered Sig/Lenin Start Time Stop Time Status Last Admin Dose Admin Acetaminophen (Tylenol) 650 mg PRN Q4HRS PRN 01/08/20 20:30 01/09/20 20:22 650 MG Albuterol Sulfate (Ventolin Neb Soln) 2.5 mg PRN Q4HRS PRN 01/08/20 20:30 Apixaban (Eliquis) 5 mg BID 01/09/20 09:00 01/10/20 08:47 5 MG Bupivacaine HCl/ Epinephrine Bitart (Sensorcain-Epi 0.5%-1:[id number] Mpf) 30 ml STK-MED ONCE 01/08/20 21:19 01/08/20 21:19 DC 01/08/20 21:20 24 ML Dexamethasone Sodium Phosphate (Decadron) 4 mg STK-MED ONCE 01/08/20 20:12 01/08/20 20:12 DC Docusate Sodium (Colace) 100 mg PRN BID PRN 01/08/20 20:30 Etomidate (Amidate) 20 mg STK-MED ONCE 01/08/20 20:12 01/08/20 20:12 DC Fentanyl Citrate (Fentanyl 2ml Vial) 50 mcg PRN Q5MIN PRN 01/08/20 18:45 01/09/20 18:44 DC Furosemide (Lasix) 40 mg DAILY 01/09/20 09:00 01/09/20 08:29 40 MG Guaifenesin (Robitussin) 200 mg PRN Q4HRS PRN 01/08/20 20:30 Hydromorphone HCl (Dilaudid) 0.75 mg PRN Q3HRS PRN 01/08/20 20:30 01/10/20 01:40 0.75 MG Ibuprofen (Motrin) 600 mg 1X ONCE 01/08/20 15:30 01/08/20 15:31 DC 01/08/20 15:30 600 MG Info (Anti-Coagulation Monitoring By Pharmacy) 1 each PRN DAILY PRN 01/08/20 21:00 01/09/20 11:21 1 EACH Info (CONTRAST GIVEN -- Rx MONITORING) 1 each PRN DAILY PRN 01/08/20 16:30 01/10/20 16:29 Iohexol (Omnipaque 350 Mg/ml) 100 ml STK-MED ONCE 01/09/20 19:43 01/09/20 19:43 DC Lactobacillus Rhamnosus (Culturelle) 1 cap BID 01/09/20 21:00 01/10/20 08:47 1 CAP Lidocaine HCl (Xylocaine-Mpf 1% 2ml Vial) 2 ml PRN 1X PRN 01/08/20 18:45 01/09/20 18:44 DC Lisinopril (Prinivil) 2.5 mg DAILY 01/09/20 09:00 01/09/20 08:30 2.5 MG Lorazepam (Ativan) 0.5 mg PRN Q4HRS PRN 01/08/20 20:30 Metoprolol Tartrate (Lopressor) 25 mg BID 01/08/20 21:00 01/09/20 20:21 25 MG Morphine Sulfate (Morphine Sulfate) 1 mg PRN Q10MIN PRN 01/08/20 18:45 01/09/20 18:44 DC Nitroglycerin (Nitrostat) 0.4 mg PRN Q5MIN PRN 01/08/20 20:30 Ondansetron HCl (Zofran) 4 mg PRN Q4HRS PRN 01/08/20 20:30 01/10/20 01:39 4 MG Phenylephrine HCl (PHENYLEPHRINE in 0.9% NACL PF) 1 mg STK-MED ONCE 01/08/20 20:12 01/08/20 20:12 DC Piperacillin Sod/ Tazobactam Sod (Zosyn Per Pharmacy) 1 each PRN DAILY PRN 01/08/20 16:00 Piperacillin Sod/ Tazobactam Sod 3.375 gm/Sodium Chloride 50 ml @ 100 mls/hr Q6HRS 01/09/20 00:00 01/10/20 05:08 100 MLS/HR Piperacillin Sod/ Tazobactam Sod 4.5 gm/Sodium Chloride 100 ml @ 200 mls/hr 1X ONCE 01/08/20 16:15 01/08/20 16:44 DC 01/08/20 17:13 200 MLS/HR Prochlorperazine Edisylate (Compazine) 5 mg PACU PRN PRN 01/08/20 18:45 01/09/20 18:44 DC Propofol (Diprivan) 200 mg STK-MED ONCE 01/08/20 20:12 01/08/20 20:12 DC Ringer's Solution 1,000 ml @ 30 mls/hr Q24H 01/08/20 18:41 01/09/20 06:40 DC 01/08/20 19:45 30 MLS/HR Sodium Monofluorophosphate (Fleet Adult) 133 ml PRN DAILY PRN 01/08/20 20:30 Sodium Chloride (Normal Saline Flush) 3 ml QSHIFT PRN 01/08/20 20:30 Vancomycin HCl (Vanco Per Pharmacy) 1 each PRN DAILY PRN 01/08/20 16:00 01/10/20 08:44 1 EACH Vancomycin HCl (Vancomycin Trough Level) 1 each 1X ONCE 01/10/20 07:30 01/10/20 07:31 DC Vancomycin HCl 1.75 gm/Sodium Chloride 500 ml @ 250 mls/hr 1X ONCE 01/08/20 16:15 01/08/20 18:14 DC 01/08/20 22:00 250 MLS/HR Vancomycin HCl 1 gm/Sodium Chloride 250 ml @ 250 mls/hr Q12H 01/10/20 09:00 01/10/20 08:48 250 MLS/HR Labs: Lab Laboratory Tests Test 01/10/20 08:00 Uric Acid 4.7 mg/dL (3.5-7.2) Vancomycin Level Trough 9.4 mcg/mL (10.0-20.0) Vancomycin Last Dose Date 01/09/20 Vancomycin Last Dose Time 1400 Objective: Assessment: 1. Fever.improving 2. Leukocytosis.improving 3. Septic Lt Knee ; crystals neg from synovial fluid January 07 status post left knee arthroscopy with synovial debridement and partial medial and lateral meniscectomy for medial and lateral meniscal tear and calcium pyrophosphate deposition disease. Cults negative so far 4. Abnormal liver function tests. 5. History of paroxysmal atrial fibrillation with congestive heart failure. 6. Arthralgias. 7. History of ETOH abuse. 8. COVID-19 negative. 9. High D dimer CT angiogram, no PE Venous Dopplers of lower extremities negative for DVT Plan: Plan of Care RECOMMENDATIONS: 1. Continue empiric IV vanc and Zosyn for now. 2. Monitor renal functions closely. Pharmacy to adjust dose of vancomycin per pharmacy protocol. 3. Follow up synovial fluid cultures 4. Follow up labs and cultures. 5. Continue local wound care as directed. 6. We will obtain uric acid and add crystal to synovial fluid. Discuss with micro lab. 7. Continue supportive care. Discuss with nursing staff. ROXANN PENA MD Jan 10, 2020 09:04
--- NOTE | 2020-01-10 09:20 | PDOC ---
PULMONARY PROGRESS NOTES Vitals Vital Signs Date Time Temp Pulse Resp B/P (MAP) Pulse Ox O2 Delivery O2 Flow Rate FiO2 01/10/20 07:00 99.4 70 17 94/55 (68) 97 Room Air 99.4 Lungs: Clear, Other Labs Laboratory Tests Test 01/08/20 13:43 01/08/20 15:01 01/08/20 16:29 01/08/20 16:44 White Blood Count 13.7 x10^3/uL (4.0-11.0) Red Blood Count 4.01 x10^6/uL (4.30-5.70) Hemoglobin 13.6 g/dL (13.0-17.5) Hematocrit 39.5 % (39.0-53.0) Mean Corpuscular Volume 98 fL (79-100) Mean Corpuscular Hemoglobin 34 pg (25-35) Mean Corpuscular Hemoglobin Concent 35 g/dL (31-37) Red Cell Distribution Width 13.7 % (11.5-14.5) Platelet Count 326 x10^3/uL (140-400) Neutrophils (%) (Auto) 79 % (31-73) Lymphocytes (%) (Auto) 4 % (24-48) Monocytes (%) (Auto) 16 % (0-9) Eosinophils (%) (Auto) 0 % (0-3) Basophils (%) (Auto) 1 % (0-3) Neutrophils # (Auto) 10.8 x10^3/uL (1.8-7.7) Lymphocytes # (Auto) 0.6 x10^3/uL (1.0-4.8) Monocytes # (Auto) 2.2 x10^3/uL (0.0-1.1) Eosinophils # (Auto) 0.0 x10^3/uL (0.0-0.7) Basophils # (Auto) 0.1 x10^3/uL (0.0-0.2) Segmented Neutrophils % 77 % (35-66) Band Neutrophils % 1 % (0-9) Lymphocytes % 9 % (24-48) Monocytes % 13 % (0-10) Toxic Granulation Slight Platelet Estimate Adequate (ADEQUATE) Prothrombin Time 16.9 SEC (11.7-14.0) Prothromb Time International Ratio 1.4 (0.8-1.1) Activated Partial Thromboplast Time 43 SEC (24-38) D-Dimer (Gisele) 1.77 ug/mlFEU (0.00-0.50) Sodium Level 133 mmol/L (136-145) Potassium Level 4.0 mmol/L (3.5-5.1) Chloride Level 97 mmol/L (98-107) Carbon Dioxide Level 25 mmol/L (21-32) Anion Gap 11 (6-14) Blood Urea Nitrogen 27 mg/dL (8-26) Creatinine 1.2 mg/dL (0.7-1.3) Estimated GFR (Cockcroft-Gault) 59.2 BUN/Creatinine Ratio 23 (6-20) Glucose Level 132 mg/dL (70-99) Lactic Acid Level 1.5 mmol/L (0.4-2.0) Calcium Level 9.8 mg/dL (8.5-10.1) Magnesium Level 2.3 mg/dL (1.8-2.4) Ferritin 461 ng/mL (26-388) Total Bilirubin 2.7 mg/dL (0.2-1.0) Aspartate Amino Transf (AST/SGOT) 101 U/L (15-37) Alanine Aminotransferase (ALT/SGPT) 73 U/L (16-63) Alkaline Phosphatase 275 U/L (46-116) Creatine Kinase 50 U/L (39-308) Creatine Kinase MB (Mass) 0.6 ng/mL (0.0-3.6) Creatine Kinase MB Relative Index % (0-4) Troponin I Quantitative < 0.017 ng/mL (0.000-0.055) C-Reactive Protein, Quantitative 203.3 mg/L (0-3.3) SB-Xnx-U-Type Natriuretic Peptide 1456 pg/mL (0-124) Total Protein 8.7 g/dL (6.4-8.2) Albumin 2.9 g/dL (3.4-5.0) Albumin/Globulin Ratio 0.5 (1.0-1.7) Lipase 326 U/L (73-393) Procalcitonin 0.13 ng/mL (0.00-0.10) Urine Collection Type Void Urine Color [place]ou Urine Clarity Clear Urine pH 5.0 (<5.0-8.0) Urine Specific Odell 1.025 (1.000-1.030) Urine Protein 30 mg/dL (NEG-TRACE) Urine Glucose (UA) Negative mg/dL (NEG) Urine Ketones (Stick) Trace mg/dL (NEG) Urine Blood Negative (NEG) Urine Nitrite Negative (NEG) Urine Bilirubin Small (NEG) Urine Urobilinogen Dipstick 1.0 mg/dL (0.2 mg/dL) Urine Leukocyte Esterase Negative (NEG) Urine RBC 0 /HPF (0-2) Urine WBC Rare /HPF (0-4) Urine Squamous Epithelial Cells Few /LPF Urine Bacteria 0 /HPF (0-FEW) Urine Hyaline Casts Few /HPF Urine Mucus Marked /LPF Coronavirus (PCR) Not detected (Not Detected) Body Fluid Source Synovial Body Fluid Color Red Body Fluid Clarity Cloudy Body Fluid Nucleated Cells 42913 /cmm (Not Body Fluid Mononuclear WBCs (%) 7 % Body Fluid Polymorphonuclear Cells 96 % Body Fluid Total RBCs Counted 3867 /cmm (Not Established) Test 01/08/20 16:55 01/08/20 17:21 01/09/20 03:35 01/10/20 08:00 Body Fluid Crystals Comment (None seen) SARS-CoV-2 Antigen (Rapid) Negative (NEGATIVE) White Blood Count 11.4 x10^3/uL (4.0-11.0) Red Blood Count 3.40 x10^6/uL (4.30-5.70) Hemoglobin 11.4 g/dL (13.0-17.5) Hematocrit 33.7 % (39.0-53.0) Mean Corpuscular Volume 99 fL (79-100) Mean Corpuscular Hemoglobin 34 pg (25-35) Mean Corpuscular Hemoglobin Concent 34 g/dL (31-37) Red Cell Distribution Width 13.5 % (11.5-14.5) Platelet Count 259 x10^3/uL (140-400) Neutrophils (%) (Auto) 81 % (31-73) Lymphocytes (%) (Auto) 5 % (24-48) Monocytes (%) (Auto) 14 % (0-9) Eosinophils (%) (Auto) 0 % (0-3) Basophils (%) (Auto) 0 % (0-3) Neutrophils # (Auto) 9.2 x10^3/uL (1.8-7.7) Lymphocytes # (Auto) 0.6 x10^3/uL (1.0-4.8) Monocytes # (Auto) 1.6 x10^3/uL (0.0-1.1) Eosinophils # (Auto) 0.0 x10^3/uL (0.0-0.7) Basophils # (Auto) 0.0 x10^3/uL (0.0-0.2) Sodium Level 135 mmol/L (136-145) Potassium Level 4.1 mmol/L (3.5-5.1) Chloride Level 100 mmol/L (98-107) Carbon Dioxide Level 25 mmol/L (21-32) Anion Gap 10 (6-14) Blood Urea Nitrogen 19 mg/dL (8-26) Creatinine 1.1 mg/dL (0.7-1.3) Estimated GFR (Cockcroft-Gault) 65.4 BUN/Creatinine Ratio 17 (6-20) Glucose Level 127 mg/dL (70-99) Calcium Level 8.2 mg/dL (8.5-10.1) Total Bilirubin 2.1 mg/dL (0.2-1.0) Aspartate Amino Transf (AST/SGOT) 185 U/L (15-37) Alanine Aminotransferase (ALT/SGPT) 93 U/L (16-63) Alkaline Phosphatase 251 U/L (46-116) Total Protein 7.1 g/dL (6.4-8.2) Albumin 2.2 g/dL (3.4-5.0) Albumin/Globulin Ratio 0.4 (1.0-1.7) Uric Acid 4.7 mg/dL (3.5-7.2) Vancomycin Level Trough 9.4 mcg/mL (10.0-20.0) Vancomycin Last Dose Date 01/09/20 Vancomycin Last Dose Time 1400 Laboratory Tests Test 01/10/20 08:00 Uric Acid 4.7 mg/dL (3.5-7.2) Vancomycin Level Trough 9.4 mcg/mL (10.0-20.0) Vancomycin Last Dose Date 01/09/20 Vancomycin Last Dose Time 1400 Medications Active Scripts Medications Dose Route/Sig Max Daily Dose Days Date Category Furosemide 40 Mg Tablet 1 Tab PO DAILY 08/18/19 Rx Lisinopril 5 Mg Tablet 2.5 Mg PO DAILY 08/18/19 Rx Metoprolol Tartrate 25 Mg Tablet 25 Mg PO BID 30 08/18/19 Rx Nitrostat (Nitroglycerin) 0.4 Mg Tab.subl 0.4 Mg SL PRN Q5MIN PRN 30 08/18/19 Rx Eliquis (Apixaban) 5 Mg Tablet 5 Mg PO BID 30 08/18/19 Rx Impression . Full note dictated, no evidence of PE. SARS-CoV-2 negative We will sign off call if needed Preoperative diagnosis: Left septic knee joint Postoperative diagnosis: Same with medial lateral meniscus tears and calcium pyrophosphate deposition disease (CPPD) Operative procedure: Left knee arthroscopy with synovial debridement and partial medial and lateral meniscectomy IMPRESSION: 1. Fever secondary to left septic knee joint. 2. Status post left knee arthroscopic with synovial debridement and partial medial and lateral meniscectomy. 3. SARS-CoV-[address] angiogram, no evidence of pulmonary embolism. 5. Venous Dopplers of lower extremities negative for deep venous thrombosis. 6. Paroxysmal atrial fibrillation. PLAN: Pulmonary status appears to be compensated, SARS-CoV-[address] angiogram revealed no evidence of infiltrates or pulmonary embolism. I will sign off. Please call if needed. MAXIMO PEREYRA MD Jan 10, 2020 09:20
[2020-01-10] MEDS ORDERED: AMIODARONE HCL 200 MG TABLET. PO SCH (10:15)
[2020-01-10] MEDS ORDERED: AMIODARONE HCL 200 MG TABLET. PO ONE (10:30)
--- NOTE | 2020-01-10 11:12 | PDOC ---
BEENA DE GUZMAN AIR CONDITIONING SPECIALIST 01/10/20 1112: CARDIO Progress Notes Date and Time Date of Service 01/10/2020 Time of Evaluation 1020 Vitals Vitals Vital Signs Date Time Temp Pulse Resp B/P (MAP) Pulse Ox O2 Delivery O2 Flow Rate FiO2 01/10/20 10:24 98.9 103 17 102/63 (76) 93 Room Air 98.9 Weight Weight [ ] Input and Output Intake and Output Intake and Output 01/10/20 07:00 Intake Total 1240 ml Output Total 1350 ml Balance -110 ml Intake Oral 1140 ml IV Total 100 ml Output Urine Total 1350 ml # Voids 1 Laboratory Labs Laboratory Tests Test 01/10/20 08:00 Uric Acid 4.7 mg/dL (3.5-7.2) Vancomycin Level Trough 9.4 mcg/mL (10.0-20.0) Vancomycin Last Dose Date 01/09/20 Vancomycin Last Dose Time 1400 Microbiology Micro Microbiology 01/08/20 Gram Stain - Final, Resulted 01/08/20 Aerobic and Anaerobic Culture, Resulted Pending 01/08/20 Blood Culture - Preliminary, Resulted NO GROWTH AFTER 1 DAY Physical Exam HEENT: Neck Supple W Full Motion Chest: Symmetric LUNGS: Other (diminished bases) Heart: irregularly irregular (AFIB) Abdomen: Soft N/T Extremities: No Edema, No Calf Tenderness Neurology: alert, oriented, follow commands Assessment Assessment 1. Left knee pain: S/P arthroscopy with debridement and meniscus tear repair P OD#2 2. PAFIB: presently in AFIB, rate 100-120 3. NICM/Chronic systolic CHF: compensated 4. HTN: mild elevated otherwise controlled Recommendations 1. Follow post op treatment per ortho. Eliquis for stroke prevention. BMP and Mg today 2. EKG and will obtain limited TTE 3. Unable to ttitrate up metoprolol due to marginally low BP, continue current dose and will start on amiodarone. Justicifation of Admission Dx: Justifications for Admission: Justification of Admission Dx: Yes CHF: Cardiac Arrhythmias Sepsis: Infection Cellulitis: Cellulitis ROBERTA THOMAS MD 01/11/20 7405: CARDIO Progress Notes Assessment Assessment Patient seen and examined 01/10/20. Agree with COTTON TIPPER's assessment and plan. Patient currently back in atrial fibrillation with slightly elevated heart rate Agree with initiating amiodarone for rhythm maintenance Continue Eliquis for stroke prophylaxis 2D echo showed LVEF 45% Continue postop care per Ortho team BEENA DE GUZMAN APRN Jan 10, 2020 11:12 ROBERTA THOMAS MD Jan 11, 2020 09:33
--- NOTE | 2020-01-10 11:21 | NUR ---
SS following up with discharge planning. SS reviewed pt chart and discussed with pt RN. Pt is currently on room air. Pt on IV Vancomycin and IV Zosyn. COVID19 negative. PT/OT recommended [facility] unit. SS met with pt in room and discussed discharge planning and [facility] unit. Pt declined [facility] unit stating that he lives at home with spouse and his spouse does not do well at home without him. Pt declined home healthcare as well. Pt stated that he has [address] that he walks around and will not be home bound. Pt's RN notified. SS will continue to follow for discharge planning.
[2020-01-10 11:40] LABS: CALCIUM 8.2 mg/dL (8.5-10.1); CREATININE 1.3 mg/dL (0.7-1.3); MAGNESIUM 2.2 mg/dL (1.8-2.4); POTASSIUM 3.4 mmol/L (3.5-5.1)
[2020-01-10] MEDS ORDERED: POTASSIUM CHLORIDE 20 MEQ TABLET.ER. PO ONE (12:00)
[2020-01-10] MEDS ORDERED: DIGOXIN IV 500 MCG/2 ML AMPUL. IV ONE (12:00)
[2020-01-10] MEDS: ACETAMINOPHEN 325 MG TABLET. PO PRN ×2 (12:32→20:46)
--- NOTE | 2020-01-10 14:02 | PDOC ---
PROGRESS NOTES Chief Complaint Chief Complaint Septic left knee Dilated cardiomyopathy A-Fib, CHF inguinal hernia repair, CARDIAC CATH Previous tobacco abuse History of Present Illness History of Present Illness 01/09/20 Patient seen and examined Discussed with RN Chart reviewed Doing well Covid (-) 01/10/20 No acute events reported overnight, case discussed with nursing staff patient in no acute distress no complaints during my visit, patient continues to have discomfort, reassurance has been provided ID netsuite consultant at bedside Vitals Vitals Vital Signs Date Time Temp Pulse Resp B/P (MAP) Pulse Ox O2 Delivery O2 Flow Rate FiO2 01/10/20 12:32 103 102/63 01/10/20 10:24 98.9 17 93 Room Air 98.9 Physical Exam Physical Exam GENERAL: Alert and oriented x 3, pleasant male, lying in bed comfortably, in no acute distress. HEENT: Normocephalic, atraumatic, anicteric. NECK: Supple. No JVD. LUNGS: Clear bilaterally. No wheezing. HEART: S1, S2. No gallops or murmurs. ABDOMEN: Soft, nontender, nondistended. No rebound. No guarding. EXTREMITIES: Dressing in place, intact, dry, not taken down. Moves toes. Right lower extremity: No abnormality noted. CENTRAL NERVOUS SYSTEM: Alert and oriented x 3, grossly nonfocal. PSYCHIATRIC: Cooperative, appropriate mood and affect. General: Alert, Oriented X3, Cooperative, No acute distress Heart: Other (Sinus tach with intermittent AFIB bursts) Lungs: Clear, Other Abdomen: Soft, No tenderness Extremities: No cyanosis, Other (Left knee with clean dry intact dressing) Skin: No breakdown, Other (S/P ;eft knee arthroscopy) Labs LABS Laboratory Tests Test 01/10/20 08:00 Sodium Level 131 mmol/L (136-145) Potassium Level 3.4 mmol/L (3.5-5.1) Chloride Level 96 mmol/L (98-107) Carbon Dioxide Level 23 mmol/L (21-32) Anion Gap 12 (6-14) Blood Urea Nitrogen 21 mg/dL (8-26) Creatinine 1.3 mg/dL (0.7-1.3) Estimated GFR (Cockcroft-Gault) 54.0 Glucose Level 110 mg/dL (70-99) Uric Acid 4.7 mg/dL (3.5-7.2) Calcium Level 8.2 mg/dL (8.5-10.1) Magnesium Level 2.2 mg/dL (1.8-2.4) Thyroid Stimulating Hormone (TSH) 0.710 uIU/mL (0.358-3.74) Vancomycin Level Trough 9.4 mcg/mL (10.0-20.0) Vancomycin Last Dose Date 01/09/20 Vancomycin Last Dose Time 1400 Assessment and Plan Assessmemt and Plan Problems Medical Problems: (1) Fever Status: Acute (2) Pain and swelling of left knee Status: Acute (3) Person under investigation for COVID-19 Status: Acute Comment Review of Relevant I have reviewed the following items meenakshi (where applicable) has been applied. Labs Laboratory Tests Test 01/08/20 15:01 01/08/20 16:29 01/08/20 16:44 01/08/20 16:55 Urine Collection Type Void Urine Color [place] Urine Clarity Clear Urine pH 5.0 (<5.0-8.0) Urine Specific [place] 1.025 (1.000-1.030) Urine Protein 30 mg/dL (NEG-TRACE) Urine Glucose (UA) Negative mg/dL (NEG) Urine Ketones (Stick) Trace mg/dL (NEG) Urine Blood Negative (NEG) Urine Nitrite Negative (NEG) Urine Bilirubin Small (NEG) Urine Urobilinogen Dipstick 1.0 mg/dL (0.2 mg/dL) Urine Leukocyte Esterase Negative (NEG) Urine RBC 0 /HPF (0-2) Urine WBC Rare /HPF (0-4) Urine Squamous Epithelial Cells Few /LPF Urine Bacteria 0 /HPF (0-FEW) Urine Hyaline Casts Few /HPF Urine Mucus Marked /LPF Coronavirus (PCR) Not detected (Not Detected) Body Fluid Source Synovial Body Fluid Color Red Body Fluid Clarity Cloudy Body Fluid Nucleated Cells 87493 /cmm (Not Body Fluid Mononuclear WBCs (%) 7 % Body Fluid Polymorphonuclear Cells 96 % Body Fluid Total RBCs Counted 3867 /cmm (Not Established) Body Fluid Crystals Comment (None seen) Test 01/08/20 17:21 01/09/20 03:35 01/10/20 08:00 SARS-CoV-2 Antigen (Rapid) Negative (NEGATIVE) White Blood Count 11.4 x10^3/uL (4.0-11.0) Red Blood Count 3.40 x10^6/uL (4.30-5.70) Hemoglobin 11.4 g/dL (13.0-17.5) Hematocrit 33.7 % (39.0-53.0) Mean Corpuscular Volume 99 fL (79-100) Mean Corpuscular Hemoglobin 34 pg (25-35) Mean Corpuscular Hemoglobin Concent 34 g/dL (31-37) Red Cell Distribution Width 13.5 % (11.5-14.5) Platelet Count 259 x10^3/uL (140-400) Neutrophils (%) (Auto) 81 % (31-73) Lymphocytes (%) (Auto) 5 % (24-48) Monocytes (%) (Auto) 14 % (0-9) Eosinophils (%) (Auto) 0 % (0-3) Basophils (%) (Auto) 0 % (0-3) Neutrophils # (Auto) 9.2 x10^3/uL (1.8-7.7) Lymphocytes # (Auto) 0.6 x10^3/uL (1.0-4.8) Monocytes # (Auto) 1.6 x10^3/uL (0.0-1.1) Eosinophils # (Auto) 0.0 x10^3/uL (0.0-0.7) Basophils # (Auto) 0.0 x10^3/uL (0.0-0.2) Sodium Level 135 mmol/L (136-145) 131 mmol/L (136-145) Potassium Level 4.1 mmol/L (3.5-5.1) 3.4 mmol/L (3.5-5.1) Chloride Level 100 mmol/L (98-107) 96 mmol/L (98-107) Carbon Dioxide Level 25 mmol/L (21-32) 23 mmol/L (21-32) Anion Gap 10 (6-14) 12 (6-14) Blood Urea Nitrogen 19 mg/dL (8-26) 21 mg/dL (8-26) Creatinine 1.1 mg/dL (0.7-1.3) 1.3 mg/dL (0.7-1.3) Estimated GFR (Cockcroft-Gault) 65.4 54.0 BUN/Creatinine Ratio 17 (6-20) Glucose Level 127 mg/dL (70-99) 110 mg/dL (70-99) Calcium Level 8.2 mg/dL (8.5-10.1) 8.2 mg/dL (8.5-10.1) Total Bilirubin 2.1 mg/dL (0.2-1.0) Aspartate Amino Transf (AST/SGOT) 185 U/L (15-37) Alanine Aminotransferase (ALT/SGPT) 93 U/L (16-63) Alkaline Phosphatase 251 U/L (46-116) Total Protein 7.1 g/dL (6.4-8.2) Albumin 2.2 g/dL (3.4-5.0) Albumin/Globulin Ratio 0.4 (1.0-1.7) Uric Acid 4.7 mg/dL (3.5-7.2) Magnesium Level 2.2 mg/dL (1.8-2.4) Thyroid Stimulating Hormone (TSH) 0.710 uIU/mL (0.358-3.74) Vancomycin Level Trough 9.4 mcg/mL (10.0-20.0) Vancomycin Last Dose Date 01/09/20 Vancomycin Last Dose Time 1400 Laboratory Tests Test 01/10/20 08:00 Sodium Level 131 mmol/L (136-145) Potassium Level 3.4 mmol/L (3.5-5.1) Chloride Level 96 mmol/L (98-107) Carbon Dioxide Level 23 mmol/L (21-32) Anion Gap 12 (6-14) Blood Urea Nitrogen 21 mg/dL (8-26) Creatinine 1.3 mg/dL (0.7-1.3) Estimated GFR (Cockcroft-Gault) 54.0 Glucose Level 110 mg/dL (70-99) Uric Acid 4.7 mg/dL (3.5-7.2) Calcium Level 8.2 mg/dL (8.5-10.1) Magnesium Level 2.2 mg/dL (1.8-2.4) Thyroid Stimulating Hormone (TSH) 0.710 uIU/mL (0.358-3.74) Vancomycin Level Trough 9.4 mcg/mL (10.0-20.0) Vancomycin Last Dose Date 01/09/20 Vancomycin Last Dose Time 1400 Microbiology 01/08/20 Gram Stain - Final, Resulted 01/08/20 Aerobic and Anaerobic Culture - Preliminary, Resulted 01/08/20 Blood Culture - Preliminary, Resulted NO GROWTH AFTER 1 DAY Medications Current Medications Ibuprofen (Motrin) 200 mg STK-MED ONCE PO ; Start 01/08/20 at 15:14; Stop 01/08/20 at 15:14; Status DC Ibuprofen (Motrin) 400 mg STK-MED ONCE PO ; Start 01/08/20 at 15:14; Stop 01/08/20 at 15:14; Status DC Sodium Chloride 1,000 ml @ 1,000 mls/hr 1X ONCE IV Last administered on 01/08/20at 15:24; Start 01/08/20 at 15:30; Stop 01/08/20 at 16:29; Status DC Ibuprofen (Motrin) 600 mg 1X ONCE PO Last administered on 01/08/20at 15:30; Start 01/08/20 at 15:30; Stop 01/08/20 at 15:31; Status DC Vancomycin HCl (Vanco Per Pharmacy) 1 each PRN DAILY PRN MC SEE COMMENTS Last administered on 01/10/20at 12:46; Start 01/08/20 at 16:00 Piperacillin Sod/ Tazobactam Sod (Zosyn Per Pharmacy) 1 each PRN DAILY PRN MC SEE COMMENTS; Start 01/08/20 at 16:00 Vancomycin HCl 1.75 gm/Sodium Chloride 500 ml @ 250 mls/hr 1X ONCE IV Last administered on 01/08/20at 22:00; Start 01/08/20 at 16:15; Stop 01/08/20 at 18:14; Status DC Piperacillin Sod/ Tazobactam Sod 4.5 gm/Sodium Chloride 100 ml @ 200 mls/hr 1X ONCE IV Last administered on 01/08/20at 17:13; Start 01/08/20 at 16:15; Stop 01/08/20 at 16:44; Status DC Iohexol (Omnipaque 350 Mg/ml) 100 ml 1X ONCE IV Last administered on 01/08/20at 16:15; Start 01/08/20 at 16:15; Stop 01/08/20 at 16:16; Status DC Info (CONTRAST GIVEN -- Rx MONITORING) 1 each PRN DAILY PRN MC SEE COMMENTS; Start 01/08/20 at 16:30; Stop 01/10/20 at 16:29 Ondansetron HCl (Zofran) 4 mg PRN Q6HRS PRN IV NAUSEA/VOMITING Last administered on 01/09/20at 11:24; Start 01/08/20 at 18:45; Stop 01/09/20 at 18:44; Status DC Fentanyl Citrate (Fentanyl 2ml Vial) 25 mcg PRN Q5MIN PRN IV MILD PAIN 1-3; Start 01/08/20 at 18:45; Stop 01/09/20 at 18:44; Status DC Fentanyl Citrate (Fentanyl 2ml Vial) 50 mcg PRN Q5MIN PRN IV MODERATE TO SEVERE PAIN; Start 01/08/20 at 18:45; Stop 01/09/20 at 18:44; Status DC Morphine Sulfate (Morphine Sulfate) 1 mg PRN Q10MIN PRN IV SEVERE PAIN 7-10; Start 01/08/20 at 18:45; Stop 01/09/20 at 18:44; Status DC Ringer's Solution 1,000 ml @ 30 mls/hr Q24H IV Last administered on 01/08/20at 19:45; Start 01/08/20 at 18:41; Stop 01/09/20 at 06:40; Status DC Lidocaine HCl (Xylocaine-Mpf 1% 2ml Vial) 2 ml PRN 1X PRN ID PRIOR TO IV START; Start 01/08/20 at 18:45; Stop 01/09/20 at 18:44; Status DC Hydromorphone HCl (Dilaudid) 0.5 mg PRN Q10MIN PRN IV SEV PAIN, Second choice; Start 01/08/20 at 18:45; Stop 01/09/20 at 18:44; Status DC Prochlorperazine Edisylate (Compazine) 5 mg PACU PRN PRN IV NAUSEA, MRX1; Start 01/08/20 at 18:45; Stop 01/09/20 at 18:44; Status DC Propofol (Diprivan) 200 mg STK-MED ONCE IV ; Start 01/08/20 at 20:12; Stop 01/08/20 at 20:12; Status DC Etomidate (Amidate) 20 mg STK-MED ONCE IV ; Start 01/08/20 at 20:12; Stop 01/08/20 at 20:12; Status DC Dexamethasone Sodium Phosphate (Decadron) 4 mg STK-MED ONCE .ROUTE ; Start 01/08/20 at 20:12; Stop 01/08/20 at 20:12; Status DC Phenylephrine HCl (PHENYLEPHRINE in 0.9% NACL PF) 1 mg STK-MED ONCE IV ; Start 01/08/20 at 20:12; Stop 01/08/20 at 20:12; Status DC Apixaban (Eliquis) 5 mg BID PO ; Start 01/08/20 at 21:00; Status Cancel Furosemide (Lasix) 40 mg DAILY PO Last administered on 01/09/20at 08:29; Start 01/09/20 at 09:00 Lisinopril (Prinivil) 2.5 mg DAILY PO Last administered on 01/09/20at 08:30; Start 01/09/20 at 09:00 Metoprolol Tartrate (Lopressor) 25 mg BID PO Last administered on 01/10/20at 09:00; Start 01/08/20 at 21:00 Nitroglycerin (Nitrostat) 0.4 mg PRN Q5MIN PRN SL CHEST PAIN; Start 01/08/20 at 20:30 Sodium Chloride (Normal Saline Flush) 3 ml QSHIFT PRN IV AFTER MEDS AND BLOOD DRAWS; Start 01/08/20 at 20:30 Ondansetron HCl (Zofran) 4 mg PRN Q4HRS PRN IV NAUSEA/VOMITING Last administered on 01/10/20at 09:51; Start 01/08/20 at 20:30 Acetaminophen (Tylenol) 650 mg PRN Q4HRS PRN PO TEMP OVER 100.4F OR MILD PAIN Last administered on 01/10/20at 12:32; Start 01/08/20 at 20:30 Sodium Monofluorophosphate (Fleet Adult) 133 ml PRN DAILY PRN DC CONSTIPATION; Start 01/08/20 at 20:30 Docusate Sodium (Colace) 100 mg PRN BID PRN PO HARD STOOLS; Start 01/08/20 at 20:30 Albuterol Sulfate (Ventolin Neb Soln) 2.5 mg PRN Q4HRS PRN NEB SHORTNESS OF BREATH; Start 01/08/20 at 20:30 Guaifenesin (Robitussin) 200 mg PRN Q4HRS PRN PO COUGH; Start 01/08/20 at 20:30 Lorazepam (Ativan) 0.5 mg PRN Q4HRS PRN PO ANXIETY / AGITATION; Start 01/08/20 at 20:30 Hydromorphone HCl (Dilaudid) 0.75 mg PRN Q3HRS PRN IV SEVERE PAIN 7-10 Last administered on 01/10/20 09:52; Start 01/08/20 at 20:30 Info (Anti-Coagulation Monitoring By Pharmacy) 1 each PRN DAILY PRN MC SEE COMMENTS Last administered on 01/09/20 11:21; Start 01/08/20 at 21:00 Apixaban (Eliquis) 5 mg BID PO Last administered on 01/10/20 08:47; Start 01/09/20 at 09:00 Bupivacaine HCl/ Epinephrine Bitart (Sensorcain-Epi 0.5%-1:792313 Mpf) 30 ml STK-MED ONCE .ROUTE Last administered on 01/08/20at 21:20; Start 01/08/20 at 21:19; Stop 01/08/20 at 21:19; Status DC Piperacillin Sod/ Tazobactam Sod 3.375 gm/Sodium Chloride 50 ml @ 100 mls/hr Q6 HRS IV Last administered on 01/10/20 11:28; Start 01/09/20 at 00:00 Vancomycin HCl 1 gm/Sodium Chloride 250 ml @ 250 mls/hr Q18H IV Last administered on 01/09/20 14:14; Start 01/09/20 at 14:00; Stop 01/10/20 at 08:46; Status DC Vancomycin HCl (Vancomycin Trough Level) 1 each 1X ONCE MC Last administered on 01/10/20 07:30; Start 01/10/20 at 07:30; Stop 01/10/20 at 07:31; Status DC Lactobacillus Rhamnosus (Culturelle) 1 cap BID PO Last administered on 01/10/20at 08:47; Start 01/09/20 at 21:00 Iohexol (Omnipaque 350 Mg/ml) 100 ml STK-MED ONCE .ROUTE ; Start 01/09/20 at 19:43; Stop 01/09/20 at 19:43; Status DC Vancomycin HCl 1 gm/Sodium Chloride 250 ml @ 250 mls/hr Q12H IV Last administered on 01/10/20at 08:48; Start 01/10/20 at 09:00 Amiodarone HCl (Cordarone) 400 mg 1X PO ; Start 01/10/20 at 10:15; Stop 01/10/20 at 10:23; Status DC Amiodarone HCl (Cordarone) 400 mg 1X ONCE PO Last administered on 01/10/20at 11:27; Start 01/10/20 at 10:30; Stop 01/10/20 at 10:31; Status DC Digoxin (Lanoxin) 500 mcg 1X ONCE IV Last administered on 01/10/20at 12:32; Start 01/10/20 at 12:00; Stop 01/10/20 at 12:01; Status DC Potassium Chloride (Klor-Con) 20 meq 1X ONCE PO Last administered on 01/10/20at 12:32; Start 01/10/20 at 12:00; Stop 01/10/20 at 12:01; Status DC Vancomycin HCl (Vancomycin Trough Level) 1 each 1X ONCE MC ; Start 01/11/20 at 08:30; Stop 01/11/20 at 08:31 Active Scripts Active Furosemide 40 Mg Tablet 1 Tab PO DAILY 30 Days Lisinopril 5 Mg Tablet 2.5 Mg PO DAILY 30 Days Metoprolol Tartrate 25 Mg Tablet 25 Mg PO BID 30 Days Nitrostat (Nitroglycerin) 0.4 Mg Tab.subl 0.4 Mg SL PRN Q5MIN PRN 30 Days Eliquis (Apixaban) 5 Mg Tablet 5 Mg PO BID 30 Days Vitals/I & O Vital Sign - Last 24 Hours 01/09/20 01/09/20 01/09/20 01/09/20 15:00 15:18 15:50 19:00 Temp 98.1 98.5 98.1 98.5 Pulse 90 109 Resp 16 12 16 17 B/P (MAP) 107/61 (76) 95/57 (70) Pulse Ox 91 95 O2 Delivery Room Air Room Air Room Air Room Air 01/09/20 01/09/20 01/09/20 01/10/20 19:29 20:21 22:55 01:40 Temp 98.3 98.3 Pulse 90 79 Resp 17 18 B/P (MAP) 107/61 116/49 (71) Pulse Ox 97 97 O2 Delivery Room Air Room Air Room Air 01/10/20 01/10/20 01/10/20 01/10/20 02:10 03:00 05:17 07:00 Temp 98.2 99.4 98.2 99.4 Pulse 82 109 70 Resp 18 18 18 17 B/P (MAP) 83/49 (60) 112/59 (76) 94/55 (68) Pulse Ox 97 97 97 O2 Delivery Room Air Room Air Room Air 01/10/20 01/10/20 01/10/20 01/10/20 08:00 09:00 09:52 10:22 Pulse 103 Resp 16 16 B/P (MAP) 102/63 O2 Delivery Room Air Room Air Room Air 01/10/20 01/10/20 01/10/20 10:24 11:27 12:32 Temp 98.9 98.9 Pulse 103 103 103 Resp 17 B/P (MAP) 102/63 (76) 102/63 102/63 Pulse Ox 93 O2 Delivery Room Air Intake and Output 01/09/20 01/09/20 01/10/20 15:00 23:00 07:00 Intake Total 0 ml 900 ml 340 ml Output Total 250 ml 600 ml 500 ml Balance -250 ml 300 ml -160 ml Justicifation of Admission Dx: Justifications for Admission: Justification of Admission Dx: Yes CHF: Cardiac Arrhythmias Sepsis: Infection Cellulitis: Cellulitis DELANEY CRENSHAW MD Jan 10, 2020 14:02
--- NOTE | 2020-01-10 17:29 | CARD ---
MR#: [id number] Date of Study: 01/10/2020 Ordering Physician: BEENA DE GUZMAN, Referring Physician: BEENA DE GUZMAN, Tech: Lakisha Santana APPROVED REPORT EXAM: Two-dimensional and M-mode echocardiogram with Doppler and color Doppler. Other Information Quality : AverageHR: 129bpm Technically limited study due to Rapid heart rate INDICATION Cardiomyopathy RISK FACTORS Hypertension 2D DIMENSIONS Left Atrium(2D)3.8 (1.6-4.0cm)IVSd1.2 (0.7-1.1cm) Aortic Root(2D)3.4 (2.0-3.7cm)LVDd6.0 (3.9-5.9cm) LVOT Diameter2.0 (1.8-2.4cm)PWd1.1 (0.7-1.1cm) LVDs3.4 (2.5-4.0cm)FS (%) 43.7 % SV132.4 ml Aortic Valve AoV Peak Jabier.141.0cm/sAoV VTI22.1cm AO Peak GR.7.9mmHgLVOT VTI 14.50cm AO Mean GR.5mmHg Tricuspid Valve TR P. [id number] [id number] TR Peak Gr.[id number] LEFT VENTRICLE The left ventricle is normal size. There is mild concentric left ventricular hypertrophy. The systoli c function is mildly impaired. The Ejection Fraction is estimated at 45%. Septal motion consistent wi th conduction abnormality. Diastology indeterminate. RIGHT VENTRICLE The right ventricle is normal size. There is normal right ventricular wall thickness. The right ventr icular systolic function is normal. ATRIA The left atrium size is normal. The right atrium is mildly dilated. The interatrial septum is intact with no evidence for an atrial septal defect or patent foramen ovale as noted on 2-D or Doppler imagi ng. AORTIC VALVE The aortic valve is thickened but opens well. Doppler and Color Flow revealed no significant aortic r egurgitation. There is no significant aortic valvular stenosis. MITRAL VALVE The mitral valve is normal in structure and function. There is no evidence of mitral valve prolapse. There is no mitral valve stenosis. Doppler and Color-flow revealed trace to mild mitral regurgitation . TRICUSPID VALVE The tricuspid valve is normal in structure and function. Doppler and Color Flow revealed mild tricusp id regurgitation with an estimated PAP of 42 mmHg. There is no tricuspid valve stenosis. PULMONIC VALVE The pulmonic valve is not well visualized. Doppler and Color Flow revealed trace pulmonic valvular re gurgitation. GREAT VESSELS The aortic root is normal in size. The IVC is normal in size and collapses >50% with inspiration. PERICARDIAL EFFUSION There is no evidence of significant pericardial effusion. Critical Notification Critical Value: No <Conclusion> The left ventricle is normal size. The systolic function is mildly impaired. The Ejection Fraction is estimated at 45%. Septal motion consistent with conduction abnormality. There is mild concentric left ventricular hypertrophy. Doppler and Color Flow revealed no significant aortic regurgitation. There is no significant aortic valvular stenosis. Doppler and Color-flow revealed trace to mild mitral regurgitation. Doppler and Color Flow revealed mild tricuspid regurgitation with an estimated PAP of 42 mmHg. Signed by : Dov Moraes MD Electronically Approved : 01/10/2020 17:29:15
[2020-01-10] MEDS: AMIODARONE HCL 200 MG TABLET. PO SCH (20:45)
[2020-01-10] MEDS: LORazepam 0.5 MG TABLET PO PRN (20:51)
[2020-01-11 03:00] VITALS: BP 98/81
[2020-01-11] MEDS: ACETAMINOPHEN 325 MG TABLET. PO PRN ×2 (04:31→20:58)
[2020-01-11] MEDS: PIPERACILLIN/TAZOBACTAM 3.375 GM in IV NORMAL SALINE 50ML 50 ML IV SCH ×4 (05:11→23:17)
[2020-01-11 07:00] VITALS: BP 99/60
--- NOTE | 2020-01-11 07:59 | PDOC ---
Infectious Disease Note Subjective: Subjective Patient states feels okay Has postop pain site less pain in lt hand,elbow and shoulder Vital Signs: Vital Signs Vital Signs Date Time Temp Pulse Resp B/P (MAP) Pulse Ox O2 Delivery O2 Flow Rate FiO2 01/11/20 03:00 98.0 81 17 98/81 (87) 95 Room Air 98.0 Physical Exam: PHYSICAL EXAM GENERAL: Alert awake somewhat confused male no acute distress HEENT: Normocephalic, atraumatic, anicteric. NECK: Supple. No JVD. LUNGS: Clear bilaterally. No wheezing. HEART: S1, S2. No gallops or murmurs. ABDOMEN: Soft, nontender, nondistended. No rebound. No guarding. EXTREMITIES: Dressing in place, intact, dry, not taken down. Moves toes. Right lower extremity: No abnormality noted. CENTRAL NERVOUS SYSTEM: Alert and oriented x 3, grossly nonfocal. PSYCHIATRIC: Cooperative, appropriate mood and affect. Medications: Inpatient Meds: Current Medications Medications (Trade) Dose Ordered Sig/Lenin Start Time Stop Time Status Last Admin Dose Admin Acetaminophen (Tylenol) 650 mg PRN Q4HRS PRN 01/08/20 20:30 01/11/20 04:31 650 MG Albuterol Sulfate (Ventolin Neb Soln) 2.5 mg PRN Q4HRS PRN 01/08/20 20:30 Amiodarone HCl (Cordarone) 200 mg DAILY 01/18/20 09:00 Apixaban (Eliquis) 5 mg BID 01/09/20 09:00 01/10/20 20:44 5 MG Bupivacaine HCl/ Epinephrine Bitart (Sensorcain-Epi 0.5%-1:768087 Mpf) 30 ml STK-MED ONCE 01/08/20 21:19 01/08/20 21:19 DC 01/08/20 21:20 24 ML Dexamethasone Sodium Phosphate (Decadron) 4 mg STK-MED ONCE 01/08/20 20:12 01/08/20 20:12 DC Digoxin (Lanoxin) 500 mcg 1X ONCE 01/10/20 12:00 01/10/20 12:01 DC 01/10/20 12:32 500 MCG Docusate Sodium (Colace) 100 mg PRN BID PRN 01/08/20 20:30 Etomidate (Amidate) 20 mg STK-MED ONCE 01/08/20 20:12 01/08/20 20:12 DC Fentanyl Citrate (Fentanyl 2ml Vial) 50 mcg PRN Q5MIN PRN 01/08/20 18:45 01/09/20 18:44 DC Furosemide (Lasix) 40 mg DAILY 01/09/20 09:00 01/09/20 08:29 40 MG Guaifenesin (Robitussin) 200 mg PRN Q4HRS PRN 01/08/20 20:30 Hydromorphone HCl (Dilaudid) 0.75 mg PRN Q3HRS PRN 01/08/20 20:30 01/10/20 22:11 0.75 MG Ibuprofen (Motrin) 600 mg 1X ONCE 01/08/20 15:30 01/08/20 15:31 DC 01/08/20 15:30 600 MG Info (Anti-Coagulation Monitoring By Pharmacy) 1 each PRN DAILY PRN 01/08/20 21:00 01/09/20 11:21 1 EACH Info (CONTRAST GIVEN -- Rx MONITORING) 1 each PRN DAILY PRN 01/08/20 16:30 01/10/20 16:29 DC Iohexol (Omnipaque 350 Mg/ml) 100 ml STK-MED ONCE 01/09/20 19:43 01/09/20 19:43 DC Lactobacillus Rhamnosus (Culturelle) 1 cap BID 01/09/20 21:00 01/10/20 20:45 1 CAP Lidocaine HCl (Xylocaine-Mpf 1% 2ml Vial) 2 ml PRN 1X PRN 01/08/20 18:45 01/09/20 18:44 DC Lisinopril (Prinivil) 2.5 mg DAILY 01/09/20 09:00 01/09/20 08:30 2.5 MG Lorazepam (Ativan) 0.5 mg PRN Q4HRS PRN 01/08/20 20:30 01/10/20 20:51 0.5 MG Metoprolol Tartrate (Lopressor) 25 mg BID 01/08/20 21:00 01/10/20 20:46 25 MG Morphine Sulfate (Morphine Sulfate) 1 mg PRN Q10MIN PRN 01/08/20 18:45 01/09/20 18:44 DC Nitroglycerin (Nitrostat) 0.4 mg PRN Q5MIN PRN 01/08/20 20:30 Ondansetron HCl (Zofran) 4 mg PRN Q4HRS PRN 01/08/20 20:30 01/10/20 16:26 4 MG Phenylephrine HCl (PHENYLEPHRINE in 0.9% NACL PF) 1 mg STK-MED ONCE 01/08/20 20:12 01/08/20 20:12 DC Piperacillin Sod/ Tazobactam Sod (Zosyn Per Pharmacy) 1 each PRN DAILY PRN 01/08/20 16:00 Piperacillin Sod/ Tazobactam Sod 3.375 gm/Sodium Chloride 50 ml @ 100 mls/hr Q6HRS 01/09/20 00:00 01/11/20 05:11 100 MLS/HR Piperacillin Sod/ Tazobactam Sod 4.5 gm/Sodium Chloride 100 ml @ 200 mls/hr 1X ONCE 01/08/20 16:15 01/08/20 16:44 DC 01/08/20 17:13 200 MLS/HR Potassium Chloride (Klor-Con) 20 meq 1X ONCE 01/10/20 12:00 01/10/20 12:01 DC 01/10/20 12:32 20 MEQ Prochlorperazine Edisylate (Compazine) 5 mg PACU PRN PRN 01/08/20 18:45 01/09/20 18:44 DC Propofol (Diprivan) 200 mg STK-MED ONCE 01/08/20 20:12 01/08/20 20:12 DC Ringer's Solution 1,000 ml @ 30 mls/hr Q24H 01/08/20 18:41 01/09/20 06:40 DC 01/08/20 19:45 30 MLS/HR Sodium Monofluorophosphate (Fleet Adult) 133 ml PRN DAILY PRN 01/08/20 20:30 Sodium Chloride (Normal Saline Flush) 3 ml QSHIFT PRN 01/08/20 20:30 Vancomycin HCl (Vanco Per Pharmacy) 1 each PRN DAILY PRN 01/08/20 16:00 01/10/20 12:46 1 EACH Vancomycin HCl (Vancomycin Trough Level) 1 each 1X ONCE 01/11/20 08:30 01/11/20 08:31 Vancomycin HCl 1.75 gm/Sodium Chloride 500 ml @ 250 mls/hr 1X ONCE 01/08/20 16:15 01/08/20 18:14 DC 01/08/20 22:00 250 MLS/HR Vancomycin HCl 1 gm/Sodium Chloride 250 ml @ 250 mls/hr Q12H 01/10/20 09:00 01/10/20 20:54 250 MLS/HR Labs: Lab Laboratory Tests Test 01/10/20 08:00 Sodium Level 131 mmol/L (136-145) Potassium Level 3.4 mmol/L (3.5-5.1) Chloride Level 96 mmol/L (98-107) Carbon Dioxide Level 23 mmol/L (21-32) Anion Gap 12 (6-14) Blood Urea Nitrogen 21 mg/dL (8-26) Creatinine 1.3 mg/dL (0.7-1.3) Estimated GFR (Cockcroft-Gault) 54.0 Glucose Level 110 mg/dL (70-99) Uric Acid 4.7 mg/dL (3.5-7.2) Calcium Level 8.2 mg/dL (8.5-10.1) Magnesium Level 2.2 mg/dL (1.8-2.4) Thyroid Stimulating Hormone (TSH) 0.710 uIU/mL (0.358-3.74) Vancomycin Level Trough 9.4 mcg/mL (10.0-20.0) Vancomycin Last Dose Date 01/09/20 Vancomycin Last Dose Time 1400 Objective: Assessment: 1. Fever.improving 2. Leukocytosis.improving 3. Septic Lt Knee ; crystals neg from synovial fluid January 07 status post left knee arthroscopy with synovial debridement and partial medial and lateral meniscectomy for medial and lateral meniscal tear and calcium pyrophosphate deposition disease. Cults negative so far 4. Abnormal liver function tests. 5. History of paroxysmal atrial fibrillation with congestive heart failure. 6. Arthralgias. 7. History of ETOH abuse. 8. COVID-19 negative. 9. High D dimer CT angiogram, no PE Venous Dopplers of lower extremities negative for DVT Plan: Plan of Care Cultures are pending : Continue Zosyn DC IV Vanco Start daptomycin Cultures pending Monitor lab Monitor for EtOH withdrawal Continue local wound care as directed. Continue supportive care. Discuss with nursing staff. ROXANN PENA MD Jan 11, 2020 07:59
[2020-01-11] MEDS: AMIODARONE HCL 200 MG TABLET. PO SCH ×2 (08:56→20:59)
[2020-01-11] MEDS: LISINOPRIL 5 MG TABLET. PO SCH (08:57)
[2020-01-11] MEDS: FUROSEMIDE 40 MG TABLET. PO SCH (08:57)
[2020-01-11] MEDS: APIXABAN 5 MG TABLET. PO SCH ×2 (08:57→20:59)
[2020-01-11] MEDS: LACTOBACILLUS RHAMNOSUS GG 1 CAPSULE. PO SCH ×2 (08:57→20:59)
[2020-01-11 09:25] LABS: CREATININE 1.1 mg/dL (0.7-1.3); GFR 65.4
[2020-01-11 09:35] LABS: VANC TR 14.1 mcg/mL (10.0-20.0)
[2020-01-11] MEDS: ANTI-COAG MONITOR BY PHARMACY. MC PRN (09:41)
[2020-01-11] MEDS: LORazepam 0.5 MG TABLET PO PRN (10:20)
[2020-01-11] MEDS: METOPROLOL TART IMMED RELEASE 25 MG TABLET. PO SCH ×2 (10:20→20:59)
[2020-01-11] MEDS: HYDROmorphone 2 MG/ML VIAL IV PRN ×2 (10:20→14:24)
--- NOTE | 2020-01-11 10:34 | PDOC ---
PROGRESS NOTES Chief Complaint Chief Complaint Septic left knee Dilated cardiomyopathy A-Fib, CHF inguinal hernia repair, CARDIAC CATH Previous tobacco abuse Plan: continue to follow cultures continue with antibiotics as per field consultant pain management History of Present Illness History of Present Illness 01/09/20 Patient seen and examined Discussed with RN Chart reviewed Doing well Covid (-) 01/10/20 No acute events reported overnight, case discussed with nursing staff patient in no acute distress no complaints during my visit, patient continues to have d iscomfort, reassurance has been provided ID field consultant at bedside 01/11/2020 Patient seems to be better compared to yesterday. Results of cultures are still pending, we will continue with broad-spectrum antibiotics and encourage more activity as tolerated. All concerns addressed to the best of my ability Vitals Vitals Vital Signs Date Time Temp Pulse Resp B/P (MAP) Pulse Ox O2 Delivery O2 Flow Rate FiO2 01/11/20 10:20 92 109/63 01/11/20 07:50 Room Air 01/11/20 07:00 98.3 18 100 98.3 Physical Exam Physical Exam GENERAL: Alert awake somewhat confused male no acute distress HEENT: Normocephalic, atraumatic, anicteric. NECK: Supple. No JVD. LUNGS: Clear bilaterally. No wheezing. HEART: S1, S2. No gallops or murmurs. ABDOMEN: Soft, nontender, nondistended. No rebound. No guarding. EXTREMITIES: Dressing in place, intact, dry, not taken down. Moves toes. Right lower extremity: No abnormality noted. CENTRAL NERVOUS SYSTEM: Alert and oriented x 3, grossly nonfocal. PSYCHIATRIC: Cooperative, appropriate mood and affect. General: Alert, Oriented X3, Cooperative, No acute distress Heart: Other (Sinus tach with intermittent AFIB bursts) Lungs: Clear, Other Abdomen: Soft, No tenderness Extremities: No cyanosis, Other (Left knee with clean dry intact dressing) Skin: No breakdown, Other (S/P ;eft knee arthroscopy) Labs LABS Laboratory Tests Test 01/11/20 08:25 Creatinine 1.1 mg/dL (0.7-1.3) Estimated GFR (Cockcroft-Gault) 65.4 Vancomycin Level Trough 14.1 mcg/mL (10.0-20.0) Vancomycin Last Dose Date 01/10/20 Vancomycin Last Dose Time 2100 Review of Systems Review of Systems Pertinent as per HPI otherwise 14 point view of system is negative Assessment and Plan Assessmemt and Plan Problems Medical Problems: (1) Fever Status: Acute (2) Pain and swelling of left knee Status: Acute (3) Person under investigation for COVID-19 Status: Acute Comment Review of Relevant I have reviewed the following items meenakshi (where applicable) has been applied. Labs Laboratory Tests Test 01/10/20 08:00 01/11/20 08:25 Sodium Level 131 mmol/L (136-145) Potassium Level 3.4 mmol/L (3.5-5.1) Chloride Level 96 mmol/L (98-107) Carbon Dioxide Level 23 mmol/L (21-32) Anion Gap 12 (6-14) Blood Urea Nitrogen 21 mg/dL (8-26) Creatinine 1.3 mg/dL (0.7-1.3) 1.1 mg/dL (0.7-1.3) Estimated GFR (Cockcroft-Gault) 54.0 65.4 Glucose Level 110 mg/dL (70-99) Uric Acid 4.7 mg/dL (3.5-7.2) Calcium Level 8.2 mg/dL (8.5-10.1) Magnesium Level 2.2 mg/dL (1.8-2.4) Thyroid Stimulating Hormone (TSH) 0.710 uIU/mL (0.358-3.74) Vancomycin Level Trough 9.4 mcg/mL (10.0-20.0) 14.1 mcg/mL (10.0-20.0) Vancomycin Last Dose Date 01/09/20 01/10/20 Vancomycin Last Dose Time 1400 2100 Laboratory Tests Test 01/11/20 08:25 Creatinine 1.1 mg/dL (0.7-1.3) Estimated GFR (Cockcroft-Gault) 65.4 Vancomycin Level Trough 14.1 mcg/mL (10.0-20.0) Vancomycin Last Dose Date 01/10/20 Vancomycin Last Dose Time 2100 Microbiology 01/08/20 Gram Stain - Final, Resulted 01/08/20 Aerobic and Anaerobic Culture - Preliminary, Resulted 01/08/20 Blood Culture - Preliminary, Resulted NO GROWTH AFTER 2 DAYS Medications Current Medications Ibuprofen (Motrin) 200 mg STK-MED ONCE PO ; Start 01/08/20 at 15:14; Stop 01/08/20 at 15:14; Status DC Ibuprofen (Motrin) 400 mg STK-MED ONCE PO ; Start 01/08/20 at 15:14; Stop 01/08/20 at 15:14; Status DC Sodium Chloride 1,000 ml @ 1,000 mls/hr 1X ONCE IV Last administered on 01/08/20at 15:24; Start 01/08/20 at 15:30; Stop 01/08/20 at 16:29; Status DC Ibuprofen (Motrin) 600 mg 1X ONCE PO Last administered on 01/08/20at 15:30; Start 01/08/20 at 15:30; Stop 01/08/20 at 15:31; Status DC Vancomycin HCl (Vanco Per Pharmacy) 1 each PRN DAILY PRN MC SEE COMMENTS Last administered on 01/10/20at 12:46; Start 01/08/20 at 16:00; Stop 01/11/20 at 08:32; Status DC Piperacillin Sod/ Tazobactam Sod (Zosyn Per Pharmacy) 1 each PRN DAILY PRN MC SEE COMMENTS; Start 01/08/20 at 16:00 Vancomycin HCl 1.75 gm/Sodium Chloride 500 ml @ 250 mls/hr 1X ONCE IV Last administered on 01/08/20at 22:00; Start 01/08/20 at 16:15; Stop 01/08/20 at 18:14; Status DC Piperacillin Sod/ Tazobactam Sod 4.5 gm/Sodium Chloride 100 ml @ 200 mls/hr 1X ONCE IV Last administered on 01/08/20at 17:13; Start 01/08/20 at 16:15; Stop 01/08/20 at 16:44; Status DC Iohexol (Omnipaque 350 Mg/ml) 100 ml 1X ONCE IV Last administered on 01/08/20at 16:15; Start 01/08/20 at 16:15; Stop 01/08/20 at 16:16; Status DC Info (CONTRAST GIVEN -- Rx MONITORING) 1 each PRN DAILY PRN MC SEE COMMENTS; Start 01/08/20 at 16:30; Stop 01/10/20 at 16:29; Status DC Ondansetron HCl (Zofran) 4 mg PRN Q6HRS PRN IV NAUSEA/VOMITING Last administered on 01/09/20at 11:24; Start 01/08/20 at 18:45; Stop 01/09/20 at 18:44; Status DC Fentanyl Citrate (Fentanyl 2ml Vial) 25 mcg PRN Q5MIN PRN IV MILD PAIN 1-3; Start 01/08/20 at 18:45; Stop 01/09/20 at 18:44; Status DC Fentanyl Citrate (Fentanyl 2ml Vial) 50 mcg PRN Q5MIN PRN IV MODERATE TO SEVERE PAIN; Start 01/08/20 at 18:45; Stop 01/09/20 at 18:44; Status DC Morphine Sulfate (Morphine Sulfate) 1 mg PRN Q10MIN PRN IV SEVERE PAIN 7-10; Start 01/08/20 at 18:45; Stop 01/09/20 at 18:44; Status DC Ringer's Solution 1,000 ml @ 30 mls/hr Q24H IV Last administered on 01/08/20at 19:45; Start 01/08/20 at 18:41; Stop 01/09/20 at 06:40; Status DC Lidocaine HCl (Xylocaine-Mpf 1% 2ml Vial) 2 ml PRN 1X PRN ID PRIOR TO IV START; Start 01/08/20 at 18:45; Stop 01/09/20 at 18:44; Status DC Hydromorphone HCl (Dilaudid) 0.5 mg PRN Q10MIN PRN IV SEV PAIN, Second choice; Start 01/08/20 at 18:45; Stop 01/09/20 at 18:44; Status DC Prochlorperazine Edisylate (Compazine) 5 mg PACU PRN PRN IV NAUSEA, MRX1; Start 01/08/20 at 18:45; Stop 01/09/20 at 18:44; Status DC Propofol (Diprivan) 200 mg STK-MED ONCE IV ; Start 01/08/20 at 20:12; Stop 01/08/20 at 20:12; Status DC Etomidate (Amidate) 20 mg STK-MED ONCE IV ; Start 01/08/20 at 20:12; Stop 01/08/20 at 20:12; Status DC Dexamethasone Sodium Phosphate (Decadron) 4 mg STK-MED ONCE .ROUTE ; Start 01/08/20 at 20:12; Stop 01/08/20 at 20:12; Status DC Phenylephrine HCl (PHENYLEPHRINE in 0.9% NACL PF) 1 mg STK-MED ONCE IV ; Start 01/08/20 at 20:12; Stop 01/08/20 at 20:12; Status DC Apixaban (Eliquis) 5 mg BID PO ; Start 01/08/20 at 21:00; Status Cancel Furosemide (Lasix) 40 mg DAILY PO Last administered on 01/09/20at 08:29; Start 01/09/20 at 09:00 Lisinopril (Prinivil) 2.5 mg DAILY PO Last administered on 01/09/20at 08:30; Start 01/09/20 at 09:00 Metoprolol Tartrate (Lopressor) 25 mg BID PO Last administered on 01/11/20at 10:20; Start 01/08/20 at 21:00 Nitroglycerin (Nitrostat) 0.4 mg PRN Q5MIN PRN SL CHEST PAIN; Start 01/08/20 at 20:30 Sodium Chloride (Normal Saline Flush) 3 ml QSHIFT PRN IV AFTER MEDS AND BLOOD DRAWS; Start 01/08/20 at 20:30 Ondansetron HCl (Zofran) 4 mg PRN Q4HRS PRN IV NAUSEA/VOMITING Last a dministered on 01/10/20at 16:26; Start 01/08/20 at 20:30 Acetaminophen (Tylenol) 650 mg PRN Q4HRS PRN PO TEMP OVER 100.4F OR MILD PAIN Last administered on 01/11/20at 04:31; Start 01/08/20 at 20:30 Sodium Monofluorophosphate (Fleet Adult) 133 ml PRN DAILY PRN [place] CONSTIPATION; Start 01/08/20 at 20:30 Docusate Sodium (Colace) 100 mg PRN BID PRN PO HARD STOOLS; Start 01/08/20 at 20:30 Albuterol Sulfate (Ventolin Neb Soln) 2.5 mg PRN Q4HRS PRN NEB SHORTNESS OF BREATH; Start 01/08/20 at 20:30 Guaifenesin (Robitussin) 200 mg PRN Q4HRS PRN PO COUGH; Start 01/08/20 at 20:30 Lorazepam (Ativan) 0.5 mg PRN Q4HRS PRN PO ANXIETY / AGITATION Last administered on 01/11/20at 10:20; Start 01/08/20 at 20:30 Hydromorphone HCl (Dilaudid) 0.75 mg PRN Q3HRS PRN IV SEVERE PAIN 7-10 Last administered on 01/10/20at 22:11; Start 01/08/20 at 20:30 Info (Anti-Coagulation Monitoring By Pharmacy) 1 each PRN DAILY PRN MC SEE COMMENTS Last administered on 01/11/20 09:41; Start 01/08/20 at 21:00 Apixaban (Eliquis) 5 mg BID PO Last administered on 01/11/20 08:57; Start 01/09/20 at 09:00 Bupivacaine HCl/ Epinephrine Bitart (Sensorcain-Epi 0.5%-1:696607 Mpf) 30 ml STK-MED ONCE .ROUTE Last administered on 01/08/20at 21:20; Start 01/08/20 at 21:19; Stop 01/08/20 at 21:19; Status DC Piperacillin Sod/ Tazobactam Sod 3.375 gm/Sodium Chloride 50 ml @ 100 mls/hr Q6HRS IV Last administered on 01/11/20at 05:11; Start 01/09/20 at 00:00 Vancomycin HCl 1 gm/Sodium Chloride 250 ml @ 250 mls/hr Q18H IV Last administered on 01/09/20at 14:14; Start 01/09/20 at 14:00; Stop 01/10/20 at 08:46; Status DC Vancomycin HCl (Vancomycin Trough Level) 1 each 1X ONCE MC Last administered on 01/10/20at 07:30; Start 01/10/20 at 07:30; Stop 01/10/20 at 07:31; Status DC Lactobacillus Rhamnosus (Culturelle) 1 cap BID PO Last administered on 01/11/20at 08:57; Start 01/09/20 at 21:00 Iohexol (Omnipaque 350 Mg/ml) 100 ml STK-MED ONCE .ROUTE ; Start 01/09/20 at 19:43; Stop 01/09/20 at 19:43; Status DC Vancomycin HCl 1 gm/Sodium Chloride 250 ml @ 250 mls/hr Q12H IV Last administered on 01/10/20at 20:54; Start 01/10/20 at 09:00; Stop 01/11/20 at 08:31; Status DC Amiodarone HCl (Cordarone) 400 mg 1X PO ; Start 01/10/20 at 10:15; Stop 01/10/20 at 10:23; Status DC Amiodarone HCl (Cordarone) 400 mg 1X ONCE PO Last administered on 01/10/20at 11:27; Start 01/10/20 at 10:30; Stop 01/10/20 at 10:31; Status DC Digoxin (Lanoxin) 500 mcg 1X ONCE IV Last administered on 01/10/20at 12:32; Start 01/10/20 at 12:00; Stop 01/10/20 at 12:01; Status DC Potassium Chloride (Klor-Con) 20 meq 1X ONCE PO Last administered on 01/10/20at 12:32; Start 01/10/20 at 12:00; Stop 01/10/20 at 12:01; Status DC Vancomycin HCl (Vancomycin Trough Level) 1 each 1X ONCE MC ; Start 01/11/20 at 08:30; Stop 01/11/20 at 08:31; Status DC Amiodarone HCl (Cordarone) 400 mg BID PO Last administered on 01/11/20at 08:56; Start 01/10/20 at 21:00; Stop 01/17/20 at 09:01 Amiodarone HCl (Cordarone) 200 mg DAILY PO ; Start 01/18/20 at 09:00 Daptomycin 410 mg/ Sodium Chloride 50 ml @ 100 mls/hr Q24H IV ; Start 01/11/20 at 11:00 Active Scripts Active Furosemide 40 Mg Tablet 1 Tab PO DAILY 30 Days Lisinopril 5 Mg Tablet 2.5 Mg PO DAILY 30 Days Metoprolol Tartrate 25 Mg Tablet 25 Mg PO BID 30 Days Nitrostat (Nitroglycerin) 0.4 Mg Tab.subl 0.4 Mg SL PRN Q5MIN PRN 30 Days Eliquis (Apixaban) 5 Mg Tablet 5 Mg PO BID 30 Days Vitals/I & O Vital Sign - Last 24 Hours 01/10/20 01/10/20 01/10/20 01/10/20 11:27 12:32 14:35 16:26 Temp 98.1 98.1 Pulse 103 103 100 Resp 17 16 B/P (MAP) 102/63 102/63 121/71 (88) Pulse Ox 97 O2 Delivery Room Air Room Air 01/10/20 01/10/20 01/10/20 01/10/20 16:56 19:32 19:50 20:45 Temp 98.1 98.1 Pulse 97 97 Resp 16 18 B/P (MAP) 120/63 (82) 120/63 Pulse Ox 97 O2 Delivery Room Air Room Air Room Air 01/10/20 01/10/20 01/10/20 01/10/20 20:46 22:11 22:41 23:00 Temp 98.2 98.2 Pulse 97 70 Resp 18 20 16 B/P (MAP) 120/63 89/40 (56) Pulse Ox 97 97 98 O2 Delivery Room Air Room Air Room Air 01/11/20 01/11/20 01/11/20 01/11/20 03:00 07:00 07:50 08:56 Temp 98.0 98.3 98.0 98.3 Pulse 81 80 80 Resp 17 18 B/P (MAP) 98/81 (87) 99/60 (73) 99/60 Pulse Ox 95 100 O2 Delivery Room Air Room Air Room Air 01/11/20 01/11/20 08:57 10:20 Pulse 80 92 B/P (MAP) 99/60 109/63 Intake and Output 01/10/20 01/10/20 01/11/20 15:00 23:00 07:00 Intake Total 0 ml 450 ml 320 ml Output Total 500 ml 200 ml Balance 0 ml -50 ml 120 ml Justicifation of Admission Dx: Justifications for Admission: Justification of Admission Dx: Yes CHF: Cardiac Arrhythmias Sepsis: Infection Cellulitis: Cellulitis DELANEY CRENSHAW MD Jan 11, 2020 10:34
[2020-01-11 11:00] VITALS: BP 109/63
[2020-01-11] MEDS: DAPTOmycin (GENERIC) IVPB 410 MG in IV NORMAL SALINE 50ML 50 ML IV SCH (11:56)
--- NOTE | 2020-01-11 12:03 | PDOC ---
BEENA DE GUZMAN ELOCUTION TEACHER 01/11/20 1203: CARDIO Progress Notes Date and Time Date of Service 01/11/2020 Time of Evaluation 1110 Subjective Subjective: No Chest Pain, No shortness of breath, No Palpitations Vitals Vitals Vital Signs Date Time Temp Pulse Resp B/P (MAP) Pulse Ox O2 Delivery O2 Flow Rate FiO2 01/11/20 11:00 98.2 92 16 109/63 (78) 98 Room Air 98.2 Weight Weight [ ] Input and Output Intake and Output Intake and Output 01/11/20 07:00 Intake Total 770 ml Output Total 700 ml Balance 70 ml Intake Oral 420 ml IV Total 350 ml Output Urine Total 700 ml Laboratory Labs Laboratory Tests Test 01/11/20 08:25 Creatinine 1.1 mg/dL (0.7-1.3) Estimated GFR (Cockcroft-Gault) 65.4 Vancomycin Level Trough 14.1 mcg/mL (10.0-20.0) Vancomycin Last Dose Date 01/10/20 Vancomycin Last Dose Time 2100 Microbiology Micro Microbiology 01/08/20 Gram Stain - Final, Resulted 01/08/20 Aerobic and Anaerobic Culture - Preliminary, Resulted 01/08/20 Blood Culture - Preliminary, Resulted NO GROWTH AFTER 2 DAYS Physical Exam HEENT: Neck Supple W Full Motion Chest: Symmetric LUNGS: Other (diminished bases) Heart: murmurs (2/6 systolic murmur to LLS border), irregularly irregular (AFIB) Abdomen: Soft N/T Extremities: No Edema, No Calf Tenderness Neurology: alert, oriented, follow commands Assessment Assessment 1. Left knee pain/possible septic knee: S/P arthroscopy with debridement and meniscus tear repair POD#3 ID and ortho following 2. PAFIB with RVR; rate better controlled today after digoxin 3. NICM/Chronic systolic CHF: compensated. EF better at 45% 4. HTN: controlled at low end Recommendations 1. Follow post op treatment per ortho. Eliquis for stroke prevention. Continue current metoprolol (no titration as pt would not be able to tolerate higher dose due to BP). amiodarone 400 mg po bid x1 week then 200 mg daily thereafter 2. Follow up in office in March as scheduled. Justicifation of Admission Dx: Justifications for Admission: Justification of Admission Dx: Yes CHF: Cardiac Arrhythmias Sepsis: Infection Cellulitis: Cellulitis ROBERTA THOMAS MD 01/11/20 1508: CARDIO Progress Notes Assessment Assessment Patient seen and examined. Agree with ROLLWAY MAN's assessment and plan. Atrial fibrillation rate better controlled. Continue current medications including digoxin for rate control, amiodarone for rhythm maintenance and Eliquis for stroke prophylaxis 2D echo showed LVEF 45% Continue postop care per orthopedics team We will consider outpatient cardioversion BEENA DE GUZMAN APRN Jan 11, 2020 12:03 ROBERTA THOMAS MD Jan 11, 2020 15:08
--- NOTE | 2020-01-11 12:19 | NUR ---
SS following up with discharge planning. SS reviewed pt chart and discussed with pt RN. Pt currently on room air. Pt on IV Daptomycin and IV Zosyn. PT/OT recommended senior care unit. Pt continuing to decline senior care unit and home healthcare. SS will continue to follow for discharge planning.
[2020-01-11 12:27] LABS: CALCIUM 7.8 mg/dL (8.5-10.1); CREATININE 1.1 mg/dL (0.7-1.3); GFR 65.4; POTASSIUM 3.8 mmol/L (3.5-5.1)
[2020-01-11] MEDS: ONDANSETRON PF 4 MG/2 ML VIAL. IV PRN (14:23)
[2020-01-11 15:00] VITALS: BP 97/58
[2020-01-11 19:09] VITALS: BP 129/62
[2020-01-11 23:25] VITALS: BP 104/62
[2020-01-12 03:00] VITALS: BP 114/61
[2020-01-12 06:47] LABS: CREATININE 1.1 mg/dL (0.7-1.3); GFR 65.4
[2020-01-12 07:00] VITALS: BP 127/69
[2020-01-12] MEDS: PIPERACILLIN/TAZOBACTAM 3.375 GM in IV NORMAL SALINE 50ML 50 ML IV SCH ×4 (07:04→23:50)
--- NOTE | 2020-01-12 08:18 | PDOC ---
Infectious Disease Note Subjective: Subjective Patient states feels okay Denies fever, nausea, vomiting, diarrhea, abdominal pain less pain in lt hand,elbow and shoulder Undergoing PT and OT Vital Signs: Vital Signs Vital Signs Date Time Temp Pulse Resp B/P (MAP) Pulse Ox O2 Delivery O2 Flow Rate FiO2 01/12/20 07:00 98.3 76 18 127/69 (88) 97 Room Air 98.3 Physical Exam: PHYSICAL EXAM GENERAL: Alert awake somewhat confused male no acute distress HEENT: Normocephalic, atraumatic, anicteric. NECK: Supple. No JVD. LUNGS: Clear bilaterally. No wheezing. HEART: S1, S2. No gallops or murmurs. ABDOMEN: Soft, nontender, nondistended. No rebound. No guarding. EXTREMITIES: Dressing in place, intact, dry, not taken down. Moves toes. Right lower extremity: No abnormality noted. CENTRAL NERVOUS SYSTEM: Alert and oriented x 3, grossly nonfocal. PSYCHIATRIC: Cooperative, appropriate mood and affect. Medications: Inpatient Meds: Current Medications Medications (Trade) Dose Ordered Sig/Lenin Start Time Stop Time Status Last Admin Dose Admin Acetaminophen (Tylenol) 650 mg PRN Q4HRS PRN 01/08/20 20:30 01/11/20 20:58 650 MG Albuterol Sulfate (Ventolin Neb Soln) 2.5 mg PRN Q4HRS PRN 01/08/20 20:30 Amiodarone HCl (Cordarone) 200 mg DAILY 01/18/20 09:00 Apixaban (Eliquis) 5 mg BID 01/09/20 09:00 01/11/20 20:59 5 MG Bupivacaine HCl/ Epinephrine Bitart (Sensorcain-Epi 0.5%-1:410651 Mpf) 30 ml STK-MED ONCE 01/08/20 21:19 01/08/20 21:19 DC 01/08/20 21:20 24 ML Daptomycin 410 mg/ Sodium Chloride 50 ml @ 100 mls/hr Q24H 01/11/20 11:00 01/11/20 11:56 100 MLS/HR Dexamethasone Sodium Phosphate (Decadron) 4 mg STK-MED ONCE 01/08/20 20:12 01/08/20 20:12 DC Digoxin (Lanoxin) 500 mcg 1X ONCE 01/10/20 12:00 01/10/20 12:01 DC 01/10/20 12:32 500 MCG Docusate Sodium (Colace) 100 mg PRN BID PRN 01/08/20 20:30 Etomidate (Amidate) 20 mg STK-MED ONCE 01/08/20 20:12 01/08/20 20:12 DC Fentanyl Citrate (Fentanyl 2ml Vial) 50 mcg PRN Q5MIN PRN 01/08/20 18:45 01/09/20 18:44 DC Furosemide (Lasix) 40 mg DAILY 01/09/20 09:00 01/09/20 08:29 40 MG Guaifenesin (Robitussin) 200 mg PRN Q4HRS PRN 01/08/20 20:30 Hydromorphone HCl (Dilaudid) 0.75 mg PRN Q3HRS PRN 01/08/20 20:30 01/11/20 14:24 0.75 MG Ibuprofen (Motrin) 600 mg 1X ONCE 01/08/20 15:30 01/08/20 15:31 DC 01/08/20 15:30 600 MG Info (Anti-Coagulation Monitoring By Pharmacy) 1 each PRN DAILY PRN 01/08/20 21:00 01/11/20 09:41 1 EACH Info (CONTRAST GIVEN -- Rx MONITORING) 1 each PRN DAILY PRN 01/08/20 16:30 01/10/20 16:29 DC Iohexol (Omnipaque 350 Mg/ml) 100 ml STK-MED ONCE 01/09/20 19:43 01/09/20 19:43 DC Lactobacillus Rhamnosus (Culturelle) 1 cap BID 01/09/20 21:00 01/11/20 20:59 1 CAP Lidocaine HCl (Xylocaine-Mpf 1% 2ml Vial) 2 ml PRN 1X PRN 01/08/20 18:45 01/09/20 18:44 DC Lisinopril (Prinivil) 2.5 mg DAILY 01/09/20 09:00 01/09/20 08:30 2.5 MG Lorazepam (Ativan) 0.5 mg PRN Q4HRS PRN 01/08/20 20:30 01/11/20 10:20 0.5 MG Metoprolol Tartrate (Lopressor) 25 mg BID 01/08/20 21:00 01/11/20 20:59 25 MG Morphine Sulfate (Morphine Sulfate) 1 mg PRN Q10MIN PRN 01/08/20 18:45 01/09/20 18:44 DC Nitroglycerin (Nitrostat) 0.4 mg PRN Q5MIN PRN 01/08/20 20:30 Ondansetron HCl (Zofran) 4 mg PRN Q4HRS PRN 01/08/20 20:30 01/11/20 14:23 4 MG Phenylephrine HCl (PHENYLEPHRINE in 0.9% NACL PF) 1 mg STK-MED ONCE 01/08/20 20:12 01/08/20 20:12 DC Piperacillin Sod/ Tazobactam Sod (Zosyn Per Pharmacy) 1 each PRN DAILY PRN 01/08/20 16:00 Piperacillin Sod/ Tazobactam Sod 3.375 gm/Sodium Chloride 50 ml @ 100 mls/hr Q6HRS 01/09/20 00:00 01/12/20 07:04 100 MLS/HR Piperacillin Sod/ Tazobactam Sod 4.5 gm/Sodium Chloride 100 ml @ 200 mls/hr 1X ONCE 01/08/20 16:15 01/08/20 16:44 DC 01/08/20 17:13 200 MLS/HR Potassium Chloride (Klor-Con) 20 meq 1X ONCE 01/10/20 12:00 01/10/20 12:01 DC 01/10/20 12:32 20 MEQ Prochlorperazine Edisylate (Compazine) 5 mg PACU PRN PRN 01/08/20 18:45 01/09/20 18:44 DC Propofol (Diprivan) 200 mg STK-MED ONCE 01/08/20 20:12 01/08/20 20:12 DC Ringer's Solution 1,000 ml @ 30 mls/hr Q24H 01/08/20 18:41 01/09/20 06:40 DC 01/08/20 19:45 30 MLS/HR Sodium Monofluorophosphate (Fleet Adult) 133 ml PRN DAILY PRN 01/08/20 20:30 Sodium Chloride (Normal Saline Flush) 3 ml QSHIFT PRN 01/08/20 20:30 Vancomycin HCl (Vanco Per Pharmacy) 1 each PRN DAILY PRN 01/08/20 16:00 01/11/20 08:32 DC 01/10/20 12:46 1 EACH Vancomycin HCl (Vancomycin Trough Level) 1 each 1X ONCE 01/11/20 08:30 01/11/20 08:31 DC Vancomycin HCl 1.75 gm/Sodium Chloride 500 ml @ 250 mls/hr 1X ONCE 01/08/20 16:15 01/08/20 18:14 DC 01/08/20 22:00 250 MLS/HR Vancomycin HCl 1 gm/Sodium Chloride 250 ml @ 250 mls/hr Q12H 01/10/20 09:00 01/11/20 08:31 DC 01/10/20 20:54 250 MLS/HR Labs: Lab Laboratory Tests Test 01/11/20 08:25 01/12/20 06:06 Sodium Level 134 mmol/L (136-145) Potassium Level 3.8 mmol/L (3.5-5.1) Chloride Level 98 mmol/L (98-107) Carbon Dioxide Level 24 mmol/L (21-32) Anion Gap 12 (6-14) Blood Urea Nitrogen 20 mg/dL (8-26) Creatinine 1.1 mg/dL (0.7-1.3) 1.1 mg/dL (0.7-1.3) Estimated GFR (Cockcroft-Gault) 65.4 65.4 Glucose Level 110 mg/dL (70-99) Calcium Level 7.8 mg/dL (8.5-10.1) Vancomycin Level Trough 14.1 mcg/mL (10.0-20.0) Vancomycin Last Dose Date 01/10/20 Vancomycin Last Dose Time 2100 Creatine Kinase 25 U/L (39-308) Objective: Assessment: 1. Fever improved 2. Leukocytosis.improving 3. Septic Lt Knee ; crystals neg from synovial fluid January 07 status post left knee arthroscopy with synovial debridement and partial medial and lateral meniscectomy for medial and lateral meniscal tear and calcium pyrophosphate deposition disease. Cults negative so far 4. Abnormal liver function tests. 5. History of paroxysmal atrial fibrillation with congestive heart failure. 6. Arthralgias. 7. History of ETOH abuse. 8. COVID-19 negative. 9. High D dimer CT angiogram, no PE Venous Dopplers of lower extremities negative for DVT Plan: Plan of Care Continue Dapto and Zosyn Monitor for EtOH withdrawal PICC line Transition from Zosyn to IV Invanz when ready for discharge, first dose of Invanz here Prescription in chart Cultures pending Monitor labs Q. Tuesday labs CBC, BUN, creatinine, CPK, CRP; fax results to [id number] Follow-up ID clinic in 2 weeks January 21 - phone [phone] Continue local wound care as directed. PT and OT as tolerated Continue supportive care. Discussed with nursing staff. ROXANN PENA MD Jan 12, 2020 08:18
[2020-01-12] MEDS: ANTI-COAG MONITOR BY PHARMACY. MC PRN (08:28)
[2020-01-12] MEDS: FUROSEMIDE 40 MG TABLET. PO SCH (09:52)
[2020-01-12] MEDS: LACTOBACILLUS RHAMNOSUS GG 1 CAPSULE. PO SCH ×2 (09:52→21:01)
[2020-01-12] MEDS: METOPROLOL TART IMMED RELEASE 25 MG TABLET. PO SCH ×2 (09:52→21:01)
[2020-01-12] MEDS: LISINOPRIL 5 MG TABLET. PO SCH (09:52)
[2020-01-12] MEDS: APIXABAN 5 MG TABLET. PO SCH ×2 (09:53→21:00)
[2020-01-12] MEDS: AMIODARONE HCL 200 MG TABLET. PO SCH ×2 (09:53→21:01)
[2020-01-12] MEDS: ACETAMINOPHEN 325 MG TABLET. PO PRN (09:56)
--- NOTE | 2020-01-12 10:48 | PDOC ---
PROGRESS NOTES Chief Complaint Chief Complaint IMPRESSION S/P arthroscopy with debridement and meniscus tear repair POD#4 ID and ortho following Septic left knee Dilated cardiomyopathy A-Fib, CHF inguinal hernia repair, CARDIAC CATH Previous tobacco abuse Plan:==== continue to follow cultures continue with antibiotics as per supervisor home energy consultant pain management ID FOLLOWING Cardiology consulted Transition from Zosyn to IV Invanz when ready for discharge, first dose of Invanz here Prescription in chart Cultures pending Monitor labs Q. Tuesday labs CBC, BUN, creatinine, CPK, CRP; fax results to [id number] Follow-up ID clinic in 2 weeks January 21 - phone [phone] d/w rn History of Present Illness History of Present Illness 01/11 Patient seen and examined Discussed with RN Chart reviewed Doing well Covid (-) 01/10/20 No acute events reported overnight, case discussed with nursing staff patient in no acute distress no complaints during my visit, patient continues to have discomfort, reassurance has been provided ID supervisor home energy consultant at bedside 01/11/2020 Patient seems to be better compared to yesterday. Results of cultures are still pending, we will continue with broad-spectrum antibiotics and encourage more activity as tolerated. All concerns addressed to the best of my ability Vitals Vitals Vital Signs Date Time Temp Pulse Resp B/P (MAP) Pulse Ox O2 Delivery O2 Flow Rate FiO2 01/12/20 09:53 76 127/69 01/12/20 08:00 Room Air 10.0 01/12/20 07:00 98.3 18 97 98.3 Physical Exam Physical Exam GENERAL: Alert awake male no acute distress HEENT: Normocephalic, atraumatic, anicteric. NECK: Supple. No JVD. LUNGS: Clear bilaterally. No wheezing. HEART: S1, S2. No gallops or murmurs. ABDOMEN: Soft, nontender, nondistended. No rebound. No guarding. EXTREMITIES: Dressing in place, intact, dry, not taken down. Moves toes. Right lower extremity: No abnormality noted. CENTRAL NERVOUS SYSTEM: Alert and oriented x 3, grossly nonfocal. PSYCHIATRIC: Cooperative, appropriate mood and affect. General: Alert, Oriented X3, Cooperative, No acute distress Heart: Regular rate, Other (Sinus tach with intermittent AFIB bursts) Lungs: Clear, Other Abdomen: Normal bowel sounds, Soft, No tenderness Extremities: No clubbing, No cyanosis, Other (Left knee with clean dry intact dressing) Skin: No breakdown, Other (S/P ;eft knee arthroscopy) Labs LABS Procedure Result GRAM STAIN Final Final NO ORGANISMS SEEN. SQUAMOUS EPI CELL:NOT APPLICABLE PMN (WBCs):MANY Unless otherwise specified, Testing Performed by: [address] [address] For Inquires, the Physician may contact the Microbiology department at [phone] ANAEROBIC-AEROBIC CULTURE Preliminary Preliminary No Growth on 01/10/20 at 1325 No Growth on 01/11/20 at 1215 Unless otherwise specified, Testing Performed by: [address] [address] For Inquires, the Physician may contact the Microbiology department at [phone] Laboratory Tests Test 01/12/20 06:06 Creatinine 1.1 mg/dL (0.7-1.3) Estimated GFR (Cockcroft-Gault) 65.4 Creatine Kinase 25 U/L (39-308) Assessment and Plan Assessmemt and Plan Problems Medical Problems: (1) Fever Status: Acute (2) Pain and swelling of left knee Status: Acute (3) Person under investigation for COVID-19 Status: Acute Comment Review of Relevant I have reviewed the following items meenakshi (where applicable) has been applied. Labs Laboratory Tests Test 01/11/20 08:25 01/12/20 06:06 Sodium Level 134 mmol/L (136-145) Potassium Level 3.8 mmol/L (3.5-5.1) Chloride Level 98 mmol/L (98-107) Carbon Dioxide Level 24 mmol/L (21-32) Anion Gap 12 (6-14) Blood Urea Nitrogen 20 mg/dL (8-26) Creatinine 1.1 mg/dL (0.7-1.3) 1.1 mg/dL (0.7-1.3) Estimated GFR (Cockcroft-Gault) 65.4 65.4 Glucose Level 110 mg/dL (70-99) Calcium Level 7.8 mg/dL (8.5-10.1) Vancomycin Level Trough 14.1 mcg/mL (10.0-20.0) Vancomycin Last Dose Date 01/10/20 Vancomycin Last Dose Time 2100 Creatine Kinase 25 U/L (39-308) Laboratory Tests Test 01/12/20 06:06 Creatinine 1.1 mg/dL (0.7-1.3) Estimated GFR (Cockcroft-Gault) 65.4 Creatine Kinase 25 U/L (39-308) Microbiology 01/08/20 Gram Stain - Final, Resulted 01/08/20 Aerobic and Anaerobic Culture - Preliminary, Resulted 01/08/20 Blood Culture - Preliminary, Resulted NO GROWTH AFTER 3 DAYS Medications Current Medications Ibuprofen (Motrin) 200 mg STK-MED ONCE PO ; Start 01/08/20 at 15:14; Stop 01/08/20 at 15:14; Status DC Ibuprofen (Motrin) 400 mg STK-MED ONCE PO ; Start 01/08/20 at 15:14; Stop 01/08/20 at 15:14; Status DC Sodium Chloride 1,000 ml @ 1,000 mls/hr 1X ONCE IV Last administered on 01/08/20at 15:24; Start 01/08/20 at 15:30; Stop 01/08/20 at 16:29; Status DC Ibuprofen (Motrin) 600 mg 1X ONCE PO Last administered on 01/08/20at 15:30; Start 01/08/20 at 15:30; Stop 01/08/20 at 15:31; Status DC Vancomycin HCl (Vanco Per Pharmacy) 1 each PRN DAILY PRN MC SEE COMMENTS Last administered on 01/10/20at 12:46; Start 01/08/20 at 16:00; Stop 01/11/20 at 08:32; Status DC Piperacillin Sod/ Tazobactam Sod (Zosyn Per Pharmacy) 1 each PRN DAILY PRN MC SEE COMMENTS; Start 01/08/20 at 16:00 Vancomycin HCl 1.75 gm/Sodium Chloride 500 ml @ 250 mls/hr 1X ONCE IV Last administered on 01/08/20at 22:00; Start 01/08/20 at 16:15; Stop 01/08/20 at 18:14; Status DC Piperacillin Sod/ Tazobactam Sod 4.5 gm/Sodium Chloride 100 ml @ 200 mls/hr 1X ONCE IV Last administered on 01/08/20at 17:13; Start 01/08/20 at 16:15; Stop 01/08/20 at 16:44; Status DC Iohexol (Omnipaque 350 Mg/ml) 100 ml 1X ONCE IV Last administered on 01/08/20at 16:15; Start 01/08/20 at 16:15; Stop 01/08/20 at 16:16; Status DC Info (CONTRAST GIVEN -- Rx MONITORING) 1 each PRN DAILY PRN MC SEE COMMENTS; Start 01/08/20 at 16:30; Stop 01/10/20 at 16:29; Status DC Ondansetron HCl (Zofran) 4 mg PRN Q6HRS PRN IV NAUSEA/VOMITING Last administered on 01/09/20at 11:24; Start 01/08/20 at 18:45; Stop 01/09/20 at 18:44; Status DC Fentanyl Citrate (Fentanyl 2ml Vial) 25 mcg PRN Q5MIN PRN IV MILD PAIN 1-3; Start 01/08/20 at 18:45; Stop 01/09/20 at 18:44; Status DC Fentanyl Citrate (Fentanyl 2ml Vial) 50 mcg PRN Q5MIN PRN IV MODERATE TO SEVERE PAIN; Start 01/08/20 at 18:45; Stop 01/09/20 at 18:44; Status DC Morphine Sulfate (Morphine Sulfate) 1 mg PRN Q10MIN PRN IV SEVERE PAIN 7-10; Start 01/08/20 at 18:45; Stop 01/09/20 at 18:44; Status DC Ringer's Solution 1,000 ml @ 30 mls/hr Q24H IV Last administered on 01/08/20at 19:45; Start 01/08/20 at 18:41; Stop 01/09/20 at 06:40; Status DC Lidocaine HCl (Xylocaine-Mpf 1% 2ml Vial) 2 ml PRN 1X PRN ID PRIOR TO IV START; Start 01/08/20 at 18:45; Stop 01/09/20 at 18:44; Status DC Hydromorphone HCl (Dilaudid) 0.5 mg PRN Q10MIN PRN IV SEV PAIN, Second choice; Start 01/08/20 at 18:45; Stop 01/09/20 at 18:44; Status DC Prochlorperazine Edisylate (Compazine) 5 mg PACU PRN PRN IV NAUSEA, MRX1; Start 01/08/20 at 18:45; Stop 01/09/20 at 18:44; Status DC Propofol (Diprivan) 200 mg STK-MED ONCE IV ; Start 01/08/20 at 20:12; Stop 01/08/20 at 20:12; Status DC Etomidate (Amidate) 20 mg STK-MED ONCE IV ; Start 01/08/20 at 20:12; Stop 01/08/20 at 20:12; Status DC Dexamethasone Sodium Phosphate (Decadron) 4 mg STK-MED ONCE .ROUTE ; Start 01/08/20 at 20:12; Stop 01/08/20 at 20:12; Status DC Phenylephrine HCl (PHENYLEPHRINE in 0.9% NACL PF) 1 mg STK-MED ONCE IV ; Start 01/08/20 at 20:12; Stop 01/08/20 at 20:12; Status DC Apixaban (Eliquis) 5 mg BID PO ; Start 01/08/20 at 21:00; Status Cancel Furosemide (Lasix) 40 mg DAILY PO Last administered on 01/12/20at 09:52; Start 01/09/20 at 09:00 Lisinopril (Prinivil) 2.5 mg DAILY PO Last administered on 01/12/20at 09:52; Start 01/09/20 at 09:00 Metoprolol Tartrate (Lopressor) 25 mg BID PO Last administered on 01/12/20at 09:52; Start 01/08/20 at 21:00 Nitroglycerin (Nitrostat) 0.4 mg PRN Q5MIN PRN SL CHEST PAIN; Start 01/08/20 at 20:30 Sodium Chloride (Normal Saline Flush) 3 ml QSHIFT PRN IV AFTER MEDS AND BLOOD DRAWS; Start 01/08/20 at 20:30 Ondansetron HCl (Zofran) 4 mg PRN Q4HRS PRN IV NAUSEA/VOMITING Last administered on 01/11/20 14:23; Start 01/08/20 at 20:30 Acetaminophen (Tylenol) 650 mg PRN Q4HRS PRN PO TEMP OVER 100.4F OR MILD PAIN Last administered on 01/12/20 09:56; Start 01/08/20 at 20:30 Sodium Monofluorophosphate (Fleet Adult) 133 ml PRN DAILY PRN CO CONSTIPATION; Start 01/08/20 at 20:30 Docusate Sodium (Colace) 100 mg PRN BID PRN PO HARD STOOLS; Start 01/08/20 at 20:30 Albuterol Sulfate (Ventolin Neb Soln) 2.5 mg PRN Q4HRS PRN NEB SHORTNESS OF BREATH; Start 01/08/20 at 20:30 Guaifenesin (Robitussin) 200 mg PRN Q4HRS PRN PO COUGH; Start 01/08/20 at 20:30 Lorazepam (Ativan) 0.5 mg PRN Q4HRS PRN PO ANXIETY / AGITATION Last administered on 01/11/20at 10:20; Start 01/08/20 at 20:30 Hydromorphone HCl (Dilaudid) 0.75 mg PRN Q3HRS PRN IV SEVERE PAIN 7-10 Last administered on 01/11/20at 14:24; Start 01/08/20 at 20:30 Info (Anti-Coagulation Monitoring By Pharmacy) 1 each PRN DAILY PRN MC SEE COMMENTS Last administered on 01/12/20 08:28; Start 01/08/20 at 21:00 Apixaban (Eliquis) 5 mg BID PO Last administered on 01/12/20 09:53; Start 01/09/20 at 09:00 Bupivacaine HCl/ Epinephrine Bitart (Sensorcain-Epi 0.5%-1:390423 Mpf) 30 ml STK-MED ONCE .ROUTE Last administered on 01/08/20at 21:20; Start 01/08/20 at 21:19; Stop 01/08/20 at 21:19; Status DC Piperacillin Sod/ Tazobactam Sod 3.375 gm/Sodium Chloride 50 ml @ 100 mls/hr Q6HRS IV Last administered on 01/12/20at 07:04; Start 01/09/20 at 00:00 Vancomycin HCl 1 gm/Sodium Chloride 250 ml @ 250 mls/hr Q18H IV Last administered on 01/09/20at 14:14; Start 01/09/20 at 14:00; Stop 01/10/20 at 08:46; Status DC Vancomycin HCl (Vancomycin Trough Level) 1 each 1X ONCE MC Last administered on 01/10/20at 07:30; Start 01/10/20 at 07:30; Stop 01/10/20 at 07:31; Status DC Lactobacillus Rhamnosus (Culturelle) 1 cap BID PO Last administered on 01/12/20at 09:52; Start 01/09/20 at 21:00 Iohexol (Omnipaque 350 Mg/ml) 100 ml STK-MED ONCE .ROUTE ; Start 01/09/20 at 19:43; Stop 01/09/20 at 19:43; Status DC Vancomycin HCl 1 gm/Sodium Chloride 250 ml @ 250 mls/hr Q12H IV Last administered on 01/10/20at 20:54; Start 01/10/20 at 09:00; Stop 01/11/20 at 08:31; Status DC Amiodarone HCl (Cordarone) 400 mg 1X PO ; Start 01/10/20 at 10:15; Stop 01/10/20 at 10:23; Status DC Amiodarone HCl (Cordarone) 400 mg 1X ONCE PO Last administered on 01/10/20at 11:27; Start 01/10/20 at 10:30; Stop 01/10/20 at 10:31; Status DC Digoxin (Lanoxin) 500 mcg 1X ONCE IV Last administered on 01/10/20at 12:32; Start 01/10/20 at 12:00; Stop 01/10/20 at 12:01; Status DC Potassium Chloride (Klor-Con) 20 meq 1X ONCE PO Last administered on 01/10/20at 12:32; Start 01/10/20 at 12:00; Stop 01/10/20 at 12:01; Status DC Vancomycin HCl (Vancomycin Trough Level) 1 each 1X ONCE MC ; Start 01/11/20 at 08:30; Stop 01/11/20 at 08:31; Status DC Amiodarone HCl (Cordarone) 400 mg BID PO Last administered on 01/12/20at 09:53; Start 01/10/20 at 21:00; Stop 01/17/20 at 09:01 Amiodarone HCl (Cordarone) 200 mg DAILY PO ; Start 01/18/20 at 09:00 Daptomycin 410 mg/ Sodium Chloride 50 ml @ 100 mls/hr Q24H IV Last administered on 01/11/20at 11:56; Start 01/11/20 at 11:00 Active Scripts Active Furosemide 40 Mg Tablet 1 Tab PO DAILY 30 Days Lisinopril 5 Mg Tablet 2.5 Mg PO DAILY 30 Days Metoprolol Tartrate 25 Mg Tablet 25 Mg PO BID 30 Days Nitrostat (Nitroglycerin) 0.4 Mg Tab.subl 0.4 Mg SL PRN Q5MIN PRN 30 Days Eliquis (Apixaban) 5 Mg Tablet 5 Mg PO BID 30 Days Vitals/I & O Vital Sign - Last 24 Hours 01/11/20 01/11/20 01/11/20 01/11/20 10:50 11:00 14:24 14:54 Temp 98.2 98.2 Pulse 92 Resp 16 16 16 16 B/P (MAP) 109/63 (78) Pulse Ox 98 O2 Delivery Room Air Room Air Room Air Room Air 01/11/20 01/11/20 01/11/20 01/11/20 15:00 19:09 20:00 20:59 Temp 99.4 98.4 99.4 98.4 Pulse 84 64 64 Resp 18 18 B/P (MAP) 97/58 (71) 129/62 (84) 129/62 Pulse Ox 96 94 O2 Delivery Room Air Room Air Room Air 01/11/20 01/11/20 01/12/20 01/12/20 20:59 23:25 03:00 07:00 Temp 98.4 98.6 98.3 98.4 98.6 98.3 Pulse 64 79 83 76 Resp 18 18 18 B/P (MAP) 129/62 104/62 (76) 114/61 (78) 127/69 (88) Pulse Ox 97 95 97 O2 Delivery Room Air Room Air Room Air 01/12/20 01/12/20 01/12/20 01/12/20 08:00 09:52 09:52 09:53 Pulse 76 76 76 B/P (MAP) 127/69 127/69 127/69 O2 Delivery Room Air O2 Flow Rate 10.0 Intake and Output 01/11/20 01/11/20 01/12/20 15:00 23:00 07:00 Intake Total 200 ml 200 ml 800 ml Output Total 300 ml 250 ml 300 ml Balance -100 ml -50 ml 500 ml Justicifation of Admission Dx: Justifications for Admission: Justification of Admission Dx: Yes CHF: Cardiac Arrhythmias Sepsis: Infection Cellulitis: Cellulitis SHASHANK DELAROSA MD Jan 12, 2020 10:48
[2020-01-12 10:49] VITALS: BP 120/59
--- NOTE | 2020-01-12 11:02 | PDOC ---
PROGRESS NOTES Subjective Subjective Patient feeling better. No new complaints. Objective Objective Vital Signs Date Time Temp Pulse Resp B/P (MAP) Pulse Ox O2 Delivery O2 Flow Rate FiO2 01/12/20 10:49 98.3 59 18 120/59 (79) 95 Room Air 98.3 01/12/20 08:00 10.0 Intake and Output 01/12/20 07:00 Intake Total 1200 ml Output Total 850 ml Balance 350 ml Intake Oral 1200 ml Output Urine Total 850 ml Physical Exam Abdomen: Soft, No tenderness Heart: Other (Sinus tach with intermittent AFIB bursts) Extremities: No cyanosis, Other (Left knee with clean dry intact dressing) General: Alert, Oriented X3, Cooperative, No acute distress HEENT: Atraumatic, Mucous membr. moist/pink Lungs: Clear to auscultation, Normal air movement MUSCULOSKELETAL: Osteoarthritic changes both hands Neuro: Normal speech, Sensation intact Psych/Mental Status: Mental status NL, Mood NL Skin: No breakdown, Other (S/P ;eft knee arthroscopy) Assessment Assessment 1. Left knee pain/possible septic knee: S/P arthroscopy with debridement and meniscus tear repair POD#4 ID and ortho following 2. PAFIB with RVR; rate better controlled today. Continue current medical regimen including amiodarone for antiarrhythmic therapy and Eliquis for stroke prophylaxis. Will plan outpatient cardioversion. 3. NICM/Chronic systolic CHF: compensated. EF better at 45% 4. HTN: controlled Plan Plan of Care Problems Medical Problems: (1) Fever Status: Acute (2) Pain and swelling of left knee Status: Acute (3) Person under investigation for COVID-19 Status: Acute Comment Review of Relevant I have reviewed the following items meenakshi (where applicable) has been applied. Labs Laboratory Tests Test 01/12/20 06:06 Creatinine 1.1 mg/dL (0.7-1.3) Estimated GFR (Cockcroft-Gault) 65.4 Creatine Kinase 25 U/L (39-308) Microbiology 01/08/20 Gram Stain - Final, Resulted 01/08/20 Aerobic and Anaerobic Culture - Preliminary, Resulted 01/08/20 Blood Culture - Preliminary, Resulted NO GROWTH AFTER 3 DAYS Medications Current Medications Amiodarone HCl (Cordarone) 200 mg DAILY PO ; Start 01/18/20 at 09:00 Vitals/I & O Vital Sign - Last 24 Hours 01/11/20 01/11/20 01/11/20 01/11/20 14:24 14:54 15:00 19:09 Temp 99.4 98.4 99.4 98.4 Pulse 84 64 Resp 16 16 18 18 B/P (MAP) 97/58 (71) 129/62 (84) Pulse Ox 96 94 O2 Delivery Room Air Room Air Room Air Room Air 01/11/20 01/11/20 01/11/20 01/11/20 20:00 20:59 20:59 23:25 Temp 98.4 98.4 Pulse 64 64 79 Resp 18 B/P (MAP) 129/62 129/62 104/62 (76) Pulse Ox 97 O2 Delivery Room Air Room Air 01/12/20 01/12/20 01/12/20 01/12/20 03:00 07:00 08:00 09:52 Temp 98.6 98.3 98.6 98.3 Pulse 83 76 76 Resp 18 18 B/P (MAP) 114/61 (78) 127/69 (88) 127/69 Pulse Ox 95 97 O2 Delivery Room Air Room Air Room Air O2 Flow Rate 10.0 01/12/20 01/12/20 01/12/20 09:52 09:53 10:49 Temp 98.3 98.3 Pulse 76 76 59 Resp 18 B/P (MAP) 127/69 127/69 120/59 (79) Pulse Ox 95 O2 Delivery Room Air Intake and Output 01/11/20 01/11/20 01/12/20 15:00 23:00 07:00 Intake Total 200 ml 200 ml 800 ml Output Total 300 ml 250 ml 300 ml Balance -100 ml -50 ml 500 ml ROBERTA THOMAS MD Jan 12, 2020 11:02
[2020-01-12] MEDS: DAPTOmycin (GENERIC) IVPB 410 MG in IV NORMAL SALINE 50ML 50 ML IV SCH (11:06)
[2020-01-12] MEDS: HYDROmorphone 2 MG/ML VIAL IV PRN ×2 (13:18→21:06)
[2020-01-12 15:00] VITALS: BP 108/59
[2020-01-12 19:10] VITALS: BP 122/55
[2020-01-12 22:40] VITALS: BP 105/52
--- NOTE | 2020-01-13 01:52 | NUR ---
incorrect lab values. Incorrect patient scanned for BG test on 01/11 at 2354 and 2316. BG values at Addendum: 01/13/20 at 0157 by LAZARO CROWE RN RN Lab was notified.
[2020-01-13 02:45] VITALS: BP 110/55
[2020-01-13 06:19] LABS: BASO % 0 % (0-3); EOS % 0 % (0-3); HEMATOCRIT 30.3 % (39.0-53.0); HEMOGLOBIN 10.3 g/dL (13.0-17.5); LYMPH # 1.1 x10^3/uL (1.0-4.8); LYMPH % 10 % (24-48); MEAN CORPUSCULAR HEMOGLOBIN 34 pg (25-35); MEAN CORPUSCULAR HGB CONC 34 g/dL (31-37); MEAN CORPUSCULAR VOLUME 99 fL (79-100); MONO # 2.1 x10^3/uL (0.0-1.1); MONO % 19 % (0-9); NEUT # 7.4 x10^3/uL (1.8-7.7); NEUT % 70 % (31-73); PLATELET COUNT 435 x10^3/uL (140-400); RED BLOOD COUNT 3.08 x10^6/uL (4.30-5.70); RED CELL DISTRIBUTION WIDTH 14.1 % (11.5-14.5); WHITE BLOOD COUNT 10.7 x10^3/uL (4.0-11.0)
[2020-01-13] MEDS: PIPERACILLIN/TAZOBACTAM 3.375 GM in IV NORMAL SALINE 50ML 50 ML IV SCH ×4 (06:19→23:11)
[2020-01-13] MEDS: ACETAMINOPHEN 325 MG TABLET. PO PRN ×2 (06:22→14:56)
--- NOTE | 2020-01-13 06:49 | PDOC ---
Infectious Disease Note Subjective: Subjective Patient feels better Denies sob, fever, nausea, vomiting, diarrhea, abdominal pain Pain in lt hand,elbow and shoulder is resolving Still has left knee pain but is under control with pain medication Vital Signs: Vital Signs Vital Signs Date Time Temp Pulse Resp B/P (MAP) Pulse Ox O2 Delivery O2 Flow Rate FiO2 01/13/20 02:45 98.9 58 18 110/55 (73) 96 Room Air 98.9 01/12/20 08:00 10.0 Physical Exam: PHYSICAL EXAM GENERAL: Alert awake male no acute distress HEENT: Normocephalic, atraumatic, anicteric. NECK: Supple. No JVD. LUNGS: Clear bilaterally. No wheezing. HEART: S1, S2. No gallops or murmurs. ABDOMEN: Soft, nontender, nondistended. No rebound. No guarding. EXTREMITIES: Dressing in place, intact, dry, not taken down. Moves toes. Right lower extremity: No abnormality noted. CENTRAL NERVOUS SYSTEM: Alert and oriented x 3, grossly nonfocal. PSYCHIATRIC: Cooperative, appropriate mood and affect. Medications: Inpatient Meds: Current Medications Medications (Trade) Dose Ordered Sig/Lenin Start Time Stop Time Status Last Admin Dose Admin Acetaminophen (Tylenol) 650 mg PRN Q4HRS PRN 01/08/20 20:30 01/13/20 06:22 650 MG Albuterol Sulfate (Ventolin Neb Soln) 2.5 mg PRN Q4HRS PRN 01/08/20 20:30 Amiodarone HCl (Cordarone) 200 mg DAILY 01/18/20 09:00 Apixaban (Eliquis) 5 mg BID 01/09/20 09:00 01/12/20 21:00 5 MG Bupivacaine HCl/ Epinephrine Bitart (Sensorcain-Epi 0.5%-1:565851 Mpf) 30 ml STK-MED ONCE 01/08/20 21:19 01/08/20 21:19 DC 01/08/20 21:20 24 ML Daptomycin 410 mg/ Sodium Chloride 50 ml @ 100 mls/hr Q24H 01/11/20 11:00 01/12/20 11:06 100 MLS/HR Dexamethasone Sodium Phosphate (Decadron) 4 mg STK-MED ONCE 01/08/20 20:12 01/08/20 20:12 DC Digoxin (Lanoxin) 500 mcg 1X ONCE 01/10/20 12:00 01/10/20 12:01 DC 01/10/20 12:32 500 MCG Docusate Sodium (Colace) 100 mg PRN BID PRN 01/08/20 20:30 Etomidate (Amidate) 20 mg STK-MED ONCE 01/08/20 20:12 01/08/20 20:12 DC Fentanyl Citrate (Fentanyl 2ml Vial) 50 mcg PRN Q5MIN PRN 01/08/20 18:45 01/09/20 18:44 DC Furosemide (Lasix) 40 mg DAILY 01/09/20 09:00 01/12/20 09:52 40 MG Guaifenesin (Robitussin) 200 mg PRN Q4HRS PRN 01/08/20 20:30 Hydromorphone HCl (Dilaudid) 0.75 mg PRN Q3HRS PRN 01/08/20 20:30 01/12/20 21:06 0.75 MG Ibuprofen (Motrin) 600 mg 1X ONCE 01/08/20 15:30 01/08/20 15:31 DC 01/08/20 15:30 600 MG Info (Anti-Coagulation Monitoring By Pharmacy) 1 each PRN DAILY PRN 01/08/20 21:00 01/12/20 08:28 1 EACH Info (CONTRAST GIVEN -- Rx MONITORING) 1 each PRN DAILY PRN 01/08/20 16:30 01/10/20 16:29 DC Iohexol (Omnipaque 350 Mg/ml) 100 ml STK-MED ONCE 01/09/20 19:43 01/09/20 19:43 DC Lactobacillus Rhamnosus (Culturelle) 1 cap BID 01/09/20 21:00 01/12/20 21:01 1 CAP Lidocaine HCl (Xylocaine-Mpf 1% 2ml Vial) 2 ml PRN 1X PRN 01/08/20 18:45 01/09/20 18:44 DC Lisinopril (Prinivil) 2.5 mg DAILY 01/09/20 09:00 01/12/20 09:52 2.5 MG Lorazepam (Ativan) 0.5 mg PRN Q4HRS PRN 01/08/20 20:30 01/11/20 10:20 0.5 MG Metoprolol Tartrate (Lopressor) 25 mg BID 01/08/20 21:00 01/12/20 21:01 25 MG Morphine Sulfate (Morphine Sulfate) 1 mg PRN Q10MIN PRN 01/08/20 18:45 01/09/20 18:44 DC Nitroglycerin (Nitrostat) 0.4 mg PRN Q5MIN PRN 01/08/20 20:30 Ondansetron HCl (Zofran) 4 mg PRN Q4HRS PRN 01/08/20 20:30 01/11/20 14:23 4 MG Phenylephrine HCl (PHENYLEPHRINE in 0.9% NACL PF) 1 mg STK-MED ONCE 01/08/20 20:12 01/08/20 20:12 DC Piperacillin Sod/ Tazobactam Sod (Zosyn Per Pharmacy) 1 each PRN DAILY PRN 01/08/20 16:00 Piperacillin Sod/ Tazobactam Sod 3.375 gm/Sodium Chloride 50 ml @ 100 mls/hr Q6HRS 01/09/20 00:00 01/13/20 06:19 100 MLS/HR Piperacillin Sod/ Tazobactam Sod 4.5 gm/Sodium Chloride 100 ml @ 200 mls/hr 1X ONCE 01/08/20 16:15 01/08/20 16:44 DC 01/08/20 17:13 200 MLS/HR Potassium Chloride (Klor-Con) 20 meq 1X ONCE 01/10/20 12:00 01/10/20 12:01 DC 01/10/20 12:32 20 MEQ Prochlorperazine Edisylate (Compazine) 5 mg PACU PRN PRN 01/08/20 18:45 01/09/20 18:44 DC Propofol (Diprivan) 200 mg STK-MED ONCE 01/08/20 20:12 01/08/20 20:12 DC Ringer's Solution 1,000 ml @ 30 mls/hr Q24H 01/08/20 18:41 01/09/20 06:40 DC 01/08/20 19:45 30 MLS/HR Sodium Monofluorophosphate (Fleet Adult) 133 ml PRN DAILY PRN 01/08/20 20:30 Sodium Chloride (Normal Saline Flush) 3 ml QSHIFT PRN 01/08/20 20:30 Vancomycin HCl (Vanco Per Pharmacy) 1 each PRN DAILY PRN 01/08/20 16:00 01/11/20 08:32 DC 01/10/20 12:46 1 EACH Vancomycin HCl (Vancomycin Trough Level) 1 each 1X ONCE 01/11/20 08:30 01/11/20 08:31 DC Vancomycin HCl 1.75 gm/Sodium Chloride 500 ml @ 250 mls/hr 1X ONCE 01/08/20 16:15 01/08/20 18:14 DC 01/08/20 22:00 250 MLS/HR Vancomycin HCl 1 gm/Sodium Chloride 250 ml @ 250 mls/hr Q12H 01/10/20 09:00 01/11/20 08:31 DC 01/10/20 20:54 250 MLS/HR Labs: Lab Laboratory Tests Test 01/12/20 23:16 01/12/20 23:54 01/13/20 05:35 Glucose (Fingerstick) 70 mg/dL (70-99) 25 mg/dL (70-99) White Blood Count 10.7 x10^3/uL (4.0-11.0) Red Blood Count 3.08 x10^6/uL (4.30-5.70) Hemoglobin 10.3 g/dL (13.0-17.5) Hematocrit 30.3 % (39.0-53.0) Mean Corpuscular Volume 99 fL (79-100) Mean Corpuscular Hemoglobin 34 pg (25-35) Mean Corpuscular Hemoglobin Concent 34 g/dL (31-37) Red Cell Distribution Width 14.1 % (11.5-14.5) Platelet Count 435 x10^3/uL (140-400) Neutrophils (%) (Auto) 70 % (31-73) Lymphocytes (%) (Auto) 10 % (24-48) Monocytes (%) (Auto) 19 % (0-9) Eosinophils (%) (Auto) 0 % (0-3) Basophils (%) (Auto) 0 % (0-3) Neutrophils # (Auto) 7.4 x10^3/uL (1.8-7.7) Lymphocytes # (Auto) 1.1 x10^3/uL (1.0-4.8) Monocytes # (Auto) 2.1 x10^3/uL (0.0-1.1) Eosinophils # (Auto) 0.0 x10^3/uL (0.0-0.7) Basophils # (Auto) 0.0 x10^3/uL (0.0-0.2) Objective: Assessment: 1. Fever improved 2. Leukocytosis.improving 3. Septic Lt Knee ; crystals neg from synovial fluid January 07 status post left knee arthroscopy with synovial debridement and partial medial and lateral meniscectomy for medial and lateral meniscal tear and calcium pyrophosphate deposition disease. Cults negative so far 4. Abnormal liver function tests. 5. History of paroxysmal atrial fibrillation with congestive heart failure. 6. Arthralgias. 7. History of ETOH abuse. 8. COVID-19 negative. 9. High D dimer CT angiogram, no PE Venous Dopplers of lower extremities negative for DVT Plan: Plan of Care Continue Dapto and Zosyn Monitor for EtOH withdrawal PICC line Transition from Zosyn to IV Invanz when ready for discharge, first dose of Invanz here Prescription in chart Social work is assisting with above Cultures pending Monitor labs Q. Tuesday labs CBC, BUN, creatinine, CPK, CRP; fax results to [phone] Follow-up ID clinic in 2 weeks Jan 21- , call [phone] for appointment Continue local wound care as directed. PT and OT as tolerated Continue supportive care. Discussed with nursing staff. ROXANN PENA MD Jan 13, 2020 06:49
[2020-01-13 07:00] VITALS: BP 125/65
[2020-01-13 07:06] LABS: ALBUMIN 1.5 g/dL (3.4-5.0); ALBUMIN/GLOBULIN RATIO 0.4 (1.0-1.7); CALCIUM 7.6 mg/dL (8.5-10.1); POTASSIUM 3.7 mmol/L (3.5-5.1); TOTAL BILIRUBIN 1.4 mg/dL (0.2-1.0); TOTAL PROTEIN 5.5 g/dL (6.4-8.2)
--- NOTE | 2020-01-13 08:01 | PDOC ---
PROGRESS NOTES Chief Complaint Chief Complaint IMPRESSION S/P arthroscopy with debridement and meniscus tear repair POD# 4 ID and ortho following Septic left knee Dilated cardiomyopathy A-Fib, CHF inguinal hernia repair, CARDIAC CATH Previous tobacco abuse Plan:==== continue to follow cultures continue with antibiotics as per consultant [employer] vice president [employer] (ex ) pain management ID FOLLOWING Cardiology consulted Transition from Zosyn to IV Invanz when ready for discharge, first dose of Invanz here Prescription in chart Cultures pending Monitor labs Q. Tuesday labs CBC, BUN, creatinine, CPK, CRP; fax results to [phone] Follow-up ID clinic in 2 weeks January 21 - phone [phone] d/w RN History of Present Illness History of Present Illness 01/11 Patient seen and examined Discussed with RN Chart reviewed Doing well Covid (-) 01/10/20 No acute events reported overnight, case discussed with nursing staff patient in no acute distress no complaints during my visit, patient continues to have discomfort, reassurance has been provided ID consultant [employer] vice president [employer] (ex ) at bedside 01/11/2020 Patient seems to be better compared to yesterday. Results of cultures are still pending, we will continue with broad-spectrum antibiotics and encourage more activity as tolerated. All concerns addressed to the best of my ability Vitals Vitals Vital Signs Date Time Temp Pulse Resp B/P (MAP) Pulse Ox O2 Delivery O2 Flow Rate FiO2 01/13/20 02:45 98.9 58 18 110/55 (73) 96 Room Air 98.9 01/12/20 08:00 10.0 Physical Exam Physical Exam GENERAL: Alert awake male no acute distress HEENT: Normocephalic, atraumatic, anicteric. NECK: Supple. No JVD. LUNGS: Clear bilaterally. No wheezing. HEART: S1, S2. No gallops or murmurs. ABDOMEN: Soft, nontender, nondistended. No rebound. No guarding. EXTREMITIES: Dressing in place, intact, dry, not taken down. Moves toes. Right lower extremity: No abnormality noted. CENTRAL NERVOUS SYSTEM: Alert and oriented x 3, grossly nonfocal. PSYCHIATRIC: Cooperative, appropriate mood and affect. General: Alert, Oriented X3, Cooperative, No acute distress Heart: Regular rate, Other (Sinus tach with intermittent AFIB bursts) Lungs: Clear, Other Abdomen: Normal bowel sounds, Soft, No tenderness Extremities: No clubbing, No cyanosis, Other (Left knee with clean dry intact dressing) Skin: No breakdown, Other (S/P ;eft knee arthroscopy) Labs LABS Laboratory Tests Test 01/12/20 23:16 01/12/20 23:54 01/13/20 05:35 Glucose (Fingerstick) 70 mg/dL (70-99) 25 mg/dL (70-99) White Blood Count 10.7 x10^3/uL (4.0-11.0) Red Blood Count 3.08 x10^6/uL (4.30-5.70) Hemoglobin 10.3 g/dL (13.0-17.5) Hematocrit 30.3 % (39.0-53.0) Mean Corpuscular Volume 99 fL (79-100) Mean Corpuscular Hemoglobin 34 pg (25-35) Mean Corpuscular Hemoglobin Concent 34 g/dL (31-37) Red Cell Distribution Width 14.1 % (11.5-14.5) Platelet Count 435 x10^3/uL (140-400) Neutrophils (%) (Auto) 70 % (31-73) Lymphocytes (%) (Auto) 10 % (24-48) Monocytes (%) (Auto) 19 % (0-9) Eosinophils (%) (Auto) 0 % (0-3) Basophils (%) (Auto) 0 % (0-3) Neutrophils # (Auto) 7.4 x10^3/uL (1.8-7.7) Lymphocytes # (Auto) 1.1 x10^3/uL (1.0-4.8) Monocytes # (Auto) 2.1 x10^3/uL (0.0-1.1) Eosinophils # (Auto) 0.0 x10^3/uL (0.0-0.7) Basophils # (Auto) 0.0 x10^3/uL (0.0-0.2) Sodium Level 134 mmol/L (136-145) Potassium Level 3.7 mmol/L (3.5-5.1) Chloride Level 98 mmol/L (98-107) Carbon Dioxide Level 29 mmol/L (21-32) Anion Gap 7 (6-14) Blood Urea Nitrogen 15 mg/dL (8-26) Creatinine 1.0 mg/dL (0.7-1.3) Estimated GFR (Cockcroft-Gault) 73.0 BUN/Creatinine Ratio 15 (6-20) Glucose Level 103 mg/dL (70-99) Calcium Level 7.6 mg/dL (8.5-10.1) Total Bilirubin 1.4 mg/dL (0.2-1.0) Aspartate Amino Transf (AST/SGOT) 52 U/L (15-37) Alanine Aminotransferase (ALT/SGPT) 41 U/L (16-63) Alkaline Phosphatase 313 U/L (46-116) Total Protein 5.5 g/dL (6.4-8.2) Albumin 1.5 g/dL (3.4-5.0) Albumin/Globulin Ratio 0.4 (1.0-1.7) Assessment and Plan Assessmemt and Plan Problems Medical Problems: (1) Fever Status: Acute (2) Pain and swelling of left knee Status: Acute (3) Person under investigation for COVID-19 Status: Acute Comment Review of Relevant I have reviewed the following items meenakshi (where applicable) has been applied. Labs Laboratory Tests Test 01/11/20 08:25 01/12/20 06:06 01/12/20 23:16 01/12/20 23:54 Sodium Level 134 mmol/L (136-145) Potassium Level 3.8 mmol/L (3.5-5.1) Chloride Level 98 mmol/L (98-107) Carbon Dioxide Level 24 mmol/L (21-32) Anion Gap 12 (6-14) Blood Urea Nitrogen 20 mg/dL (8-26) Creatinine 1.1 mg/dL (0.7-1.3) 1.1 mg/dL (0.7-1.3) Estimated GFR (Cockcroft-Gault) 65.4 65.4 Glucose Level 110 mg/dL (70-99) Calcium Level 7.8 mg/dL (8.5-10.1) Vancomycin Level Trough 14.1 mcg/mL (10.0-20.0) Vancomycin Last Dose Date 01/10/20 Vancomycin Last Dose Time 2100 Creatine Kinase 25 U/L (39-308) Glucose (Fingerstick) 70 mg/dL (70-99) 25 mg/dL (70-99) Test 01/13/20 05:35 White Blood Count 10.7 x10^3/uL (4.0-11.0) Red Blood Count 3.08 x10^6/uL (4.30-5.70) Hemoglobin 10.3 g/dL (13.0-17.5) Hematocrit 30.3 % (39.0-53.0) Mean Corpuscular Volume 99 fL (79-100) Mean Corpuscular Hemoglobin 34 pg (25-35) Mean Corpuscular Hemoglobin Concent 34 g/dL (31-37) Red Cell Distribution Width 14.1 % (11.5-14.5) Platelet Count 435 x10^3/uL (140-400) Neutrophils (%) (Auto) 70 % (31-73) Lymphocytes (%) (Auto) 10 % (24-48) Monocytes (%) (Auto) 19 % (0-9) Eosinophils (%) (Auto) 0 % (0-3) Basophils (%) (Auto) 0 % (0-3) Neutrophils # (Auto) 7.4 x10^3/uL (1.8-7.7) Lymphocytes # (Auto) 1.1 x10^3/uL (1.0-4.8) Monocytes # (Auto) 2.1 x10^3/uL (0.0-1.1) Eosinophils # (Auto) 0.0 x10^3/uL (0.0-0.7) Basophils # (Auto) 0.0 x10^3/uL (0.0-0.2) Sodium Level 134 mmol/L (136-145) Potassium Level 3.7 mmol/L (3.5-5.1) Chloride Level 98 mmol/L (98-107) Carbon Dioxide Level 29 mmol/L (21-32) Anion Gap 7 (6-14) Blood Urea Nitrogen 15 mg/dL (8-26) Creatinine 1.0 mg/dL (0.7-1.3) Estimated GFR (Cockcroft-Gault) 73.0 BUN/Creatinine Ratio 15 (6-20) Glucose Level 103 mg/dL (70-99) Calcium Level 7.6 mg/dL (8.5-10.1) Total Bilirubin 1.4 mg/dL (0.2-1.0) Aspartate Amino Transf (AST/SGOT) 52 U/L (15-37) Alanine Aminotransferase (ALT/SGPT) 41 U/L (16-63) Alkaline Phosphatase 313 U/L (46-116) Total Protein 5.5 g/dL (6.4-8.2) Albumin 1.5 g/dL (3.4-5.0) Albumin/Globulin Ratio 0.4 (1.0-1.7) Laboratory Tests Test 01/12/20 23:16 01/12/20 23:54 01/13/20 05:35 Glucose (Fingerstick) 70 mg/dL (70-99) 25 mg/dL (70-99) White Blood Count 10.7 x10^3/uL (4.0-11.0) Red Blood Count 3.08 x10^6/uL (4.30-5.70) Hemoglobin 10.3 g/dL (13.0-17.5) Hematocrit 30.3 % (39.0-53.0) Mean Corpuscular Volume 99 fL (79-100) Mean Corpuscular Hemoglobin 34 pg (25-35) Mean Corpuscular Hemoglobin Concent 34 g/dL (31-37) Red Cell Distribution Width 14.1 % (11.5-14.5) Platelet Count 435 x10^3/uL (140-400) Neutrophils (%) (Auto) 70 % (31-73) Lymphocytes (%) (Auto) 10 % (24-48) Monocytes (%) (Auto) 19 % (0-9) Eosinophils (%) (Auto) 0 % (0-3) Basophils (%) (Auto) 0 % (0-3) Neutrophils # (Auto) 7.4 x10^3/uL (1.8-7.7) Lymphocytes # (Auto) 1.1 x10^3/uL (1.0-4.8) Monocytes # (Auto) 2.1 x10^3/uL (0.0-1.1) Eosinophils # (Auto) 0.0 x10^3/uL (0.0-0.7) Basophils # (Auto) 0.0 x10^3/uL (0.0-0.2) Sodium Level 134 mmol/L (136-145) Potassium Level 3.7 mmol/L (3.5-5.1) Chloride Level 98 mmol/L (98-107) Carbon Dioxide Level 29 mmol/L (21-32) Anion Gap 7 (6-14) Blood Urea Nitrogen 15 mg/dL (8-26) Creatinine 1.0 mg/dL (0.7-1.3) Estimated GFR (Cockcroft-Gault) 73.0 BUN/Creatinine Ratio 15 (6-20) Glucose Level 103 mg/dL (70-99) Calcium Level 7.6 mg/dL (8.5-10.1) Total Bilirubin 1.4 mg/dL (0.2-1.0) Aspartate Amino Transf (AST/SGOT) 52 U/L (15-37) Alanine Aminotransferase (ALT/SGPT) 41 U/L (16-63) Alkaline Phosphatase 313 U/L (46-116) Total Protein 5.5 g/dL (6.4-8.2) Albumin 1.5 g/dL (3.4-5.0) Albumin/Globulin Ratio 0.4 (1.0-1.7) Microbiology 01/08/20 Gram Stain - Final, Resulted 01/08/20 Aerobic and Anaerobic Culture - Preliminary, Resulted 01/08/20 Blood Culture - Preliminary, Resulted NO GROWTH AFTER 4 DAYS Medications Current Medications Ibuprofen (Motrin) 200 mg STK-MED ONCE PO ; Start 01/08/20 at 15:14; Stop 01/08/20 at 15:14; Status DC Ibuprofen (Motrin) 400 mg STK-MED ONCE PO ; Start 01/08/20 at 15:14; Stop 01/08/20 at 15:14; Status DC Sodium Chloride 1,000 ml @ 1,000 mls/hr 1X ONCE IV Last administered on 01/08/20at 15:24; Start 01/08/20 at 15:30; Stop 01/08/20 at 16:29; Status DC Ibuprofen (Motrin) 600 mg 1X ONCE PO Last administered on 01/08/20at 15:30; Start 01/08/20 at 15:30; Stop 01/08/20 at 15:31; Status DC Vancomycin HCl (Vanco Per Pharmacy) 1 each PRN DAILY PRN MC SEE COMMENTS Last administered on 01/10/20at 12:46; Start 01/08/20 at 16:00; Stop 01/11/20 at 08:32; Status DC Piperacillin Sod/ Tazobactam Sod (Zosyn Per Pharmacy) 1 each PRN DAILY PRN MC SEE COMMENTS; Start 01/08/20 at 16:00 Vancomycin HCl 1.75 gm/Sodium Chloride 500 ml @ 250 mls/hr 1X ONCE IV Last administered on 01/08/20at 22:00; Start 01/08/20 at 16:15; Stop 01/08/20 at 18:14; Status DC Piperacillin Sod/ Tazobactam Sod 4.5 gm/Sodium Chloride 100 ml @ 200 mls/hr 1X ONCE IV Last administered on 01/08/20at 17:13; Start 01/08/20 at 16:15; Stop 01/08/20 at 16:44; Status DC Iohexol (Omnipaque 350 Mg/ml) 100 ml 1X ONCE IV Last administered on 01/08/20at 16:15; Start 01/08/20 at 16:15; Stop 01/08/20 at 16:16; Status DC Info (CONTRAST GIVEN -- Rx MONITORING) 1 each PRN DAILY PRN MC SEE COMMENTS; Start 01/08/20 at 16:30; Stop 01/10/20 at 16:29; Status DC Ondansetron HCl (Zofran) 4 mg PRN Q6HRS PRN IV NAUSEA/VOMITING Last administered on 01/09/20at 11:24; Start 01/08/20 at 18:45; Stop 01/09/20 at 18:44; Status DC Fentanyl Citrate (Fentanyl 2ml Vial) 25 mcg PRN Q5MIN PRN IV MILD PAIN 1-3; Start 01/08/20 at 18:45; Stop 01/09/20 at 18:44; Status DC Fentanyl Citrate (Fentanyl 2ml Vial) 50 mcg PRN Q5MIN PRN IV MODERATE TO SEVERE PAIN; Start 01/08/20 at 18:45; Stop 01/09/20 at 18:44; Status DC Morphine Sulfate (Morphine Sulfate) 1 mg PRN Q10MIN PRN IV SEVERE PAIN 7-10; Start 01/08/20 at 18:45; Stop 01/09/20 at 18:44; Status DC Ringer's Solution 1,000 ml @ 30 mls/hr Q24H IV Last administered on 01/08/20at 19:45; Start 01/08/20 at 18:41; Stop 01/09/20 at 06:40; Status DC Lidocaine HCl (Xylocaine-Mpf 1% 2ml Vial) 2 ml PRN 1X PRN ID PRIOR TO IV START; Start 01/08/20 at 18:45; Stop 01/09/20 at 18:44; Status DC Hydromorphone HCl (Dilaudid) 0.5 mg PRN Q10MIN PRN IV SEV PAIN, Second choice; Start 01/08/20 at 18:45; Stop 01/09/20 at 18:44; Status DC Prochlorperazine Edisylate (Compazine) 5 mg PACU PRN PRN IV NAUSEA, MRX1; Start 01/08/20 at 18:45; Stop 01/09/20 at 18:44; Status DC Propofol (Diprivan) 200 mg STK-MED ONCE IV ; Start 01/08/20 at 20:12; Stop 01/08/20 at 20:12; Status DC Etomidate (Amidate) 20 mg STK-MED ONCE IV ; Start 01/08/20 at 20:12; Stop 01/08/20 at 20:12; Status DC Dexamethasone Sodium Phosphate (Decadron) 4 mg STK-MED ONCE .ROUTE ; Start 01/08/20 at 20:12; Stop 01/08/20 at 20:12; Status DC Phenylephrine HCl (PHENYLEPHRINE in 0.9% NACL PF) 1 mg STK-MED ONCE IV ; Start 01/08/20 at 20:12; Stop 01/08/20 at 20:12; Status DC Apixaban (Eliquis) 5 mg BID PO ; Start 01/08/20 at 21:00; Status Cancel Furosemide (Lasix) 40 mg DAILY PO Last administered on 01/12/20at 09:52; Start 01/09/20 at 09:00 Lisinopril (Prinivil) 2.5 mg DAILY PO Last administered on 01/12/20at 09:52; Start 01/09/20 at 09:00 Metoprolol Tartrate (Lopressor) 25 mg BID PO Last administered on 01/12/20at 21:01; Start 01/08/20 at 21:00 Nitroglycerin (Nitrostat) 0.4 mg PRN Q5MIN PRN SL CHEST PAIN; Start 01/08/20 at 20:30 Sodium Chloride (Normal Saline Flush) 3 ml QSHIFT PRN IV AFTER MEDS AND BLOOD DRAWS; Start 01/08/20 at 20:30 Ondansetron HCl (Zofran) 4 mg PRN Q4HRS PRN IV NAUSEA/VOMITING Last administered on 01/11/20at 14:23; Start 01/08/20 at 20:30 Acetaminophen (Tylenol) 650 mg PRN Q4HRS PRN PO TEMP OVER 100.4F OR MILD PAIN Last administered on 01/13/20at 06:22; Start 01/08/20 at 20:30 Sodium Monofluorophosphate (Fleet Adult) 133 ml PRN DAILY PRN NV CONSTIPATION; Start 01/08/20 at 20:30 Docusate Sodium (Colace) 100 mg PRN BID PRN PO HARD STOOLS; Start 01/08/20 at 20:30 Albuterol Sulfate (Ventolin Neb Soln) 2.5 mg PRN Q4HRS PRN NEB SHORTNESS OF BREATH; Start 01/08/20 at 20:30 Guaifenesin (Robitussin) 200 mg PRN Q4HRS PRN PO COUGH; Start 01/08/20 at 20:30 Lorazepam (Ativan) 0.5 mg PRN Q4HRS PRN PO ANXIETY / AGITATION Last administered on 01/11/20 10:20; Start 01/08/20 at 20:30 Hydromorphone HCl (Dilaudid) 0.75 mg PRN Q3HRS PRN IV SEVERE PAIN 7-10 Last administered on 01/12/20at 21:06; Start 01/08/20 at 20:30 Info (Anti-Coagulation Monitoring By Pharmacy) 1 each PRN DAILY PRN MC SEE COMMENTS Last administered on 01/12/20at 08:28; Start 01/08/20 at 21:00 Apixaban (Eliquis) 5 mg BID PO Last administered on 01/12/20 21:00; Start 12/19 08/09 at 09:00 Bupivacaine HCl/ Epinephrine Bitart (Sensorcain-Epi 0.5%-1:[id number] Mpf) 30 ml STK-MED ONCE .ROUTE Last administered on 01/08/20at 21:20; Start 01/08/20 at 21:19; Stop 01/08/20 at 21:19; Status DC Piperacillin Sod/ Tazobactam Sod 3.375 gm/Sodium Chloride 50 ml @ 100 mls/hr Q6HRS IV Last administered on 01/13/20at 06:19; Start 01/09/20 at 00:00 Vancomycin HCl 1 gm/Sodium Chloride 250 ml @ 250 mls/hr Q18H IV Last administered on 01/09/20at 14:14; Start 01/09/20 at 14:00; Stop 01/10/20 at 08:46; Status DC Vancomycin HCl (Vancomycin Trough Level) 1 each 1X ONCE MC Last administered on 01/10/20at 07:30; Start 01/10/20 at 07:30; Stop 01/10/20 at 07:31; Status DC Lactobacillus Rhamnosus (Culturelle) 1 cap BID PO Last administered on 01/12/20at 21:01; Start 01/09/20 at 21:00 Iohexol (Omnipaque 350 Mg/ml) 100 ml STK-MED ONCE .ROUTE ; Start 01/09/20 at 19:43; Stop 01/09/20 at 19:43; Status DC Vancomycin HCl 1 gm/Sodium Chloride 250 ml @ 250 mls/hr Q12H IV Last administered on 01/10/20at 20:54; Start 01/10/20 at 09:00; Stop 01/11/20 at 08:31; Status DC Amiodarone HCl (Cordarone) 400 mg 1X PO ; Start 01/10/20 at 10:15; Stop 01/10/20 at 10:23; Status DC Amiodarone HCl (Cordarone) 400 mg 1X ONCE PO Last administered on 01/10/20at 11:27; Start 01/10/20 at 10:30; Stop 01/10/20 at 10:31; Status DC Digoxin (Lanoxin) 500 mcg 1X ONCE IV Last administered on 01/10/20at 12:32; Start 01/10/20 at 12:00; Stop 01/10/20 at 12:01; Status DC Potassium Chloride (Klor-Con) 20 meq 1X ONCE PO Last administered on 01/10/20at 12:32; Start 01/10/20 at 12:00; Stop 01/10/20 at 12:01; Status DC Vancomycin HCl (Vancomycin Trough Level) 1 each 1X ONCE MC ; Start 01/11/20 at 08:30; Stop 01/11/20 at 08:31; Status DC Amiodarone HCl (Cordarone) 400 mg BID PO Last administered on 01/12/20at 21:01; Start 01/10/20 at 21:00; Stop 01/17/20 at 09:01 Amiodarone HCl (Cordarone) 200 mg DAILY PO ; Start 01/18/20 at 09:00 Daptomycin 410 mg/ Sodium Chloride 50 ml @ 100 mls/hr Q24H IV Last administered on 01/12/20at 11:06; Start 01/11/20 at 11:00 Active Scripts Active Furosemide 40 Mg Tablet 1 Tab PO DAILY 30 Days Lisinopril 5 Mg Tablet 2.5 Mg PO DAILY 30 Days Metoprolol Tartrate 25 Mg Tablet 25 Mg PO BID 30 Days Nitrostat (Nitroglycerin) 0.4 Mg Tab.subl 0.4 Mg SL PRN Q5MIN PRN 30 Days Eliquis (Apixaban) 5 Mg Tablet 5 Mg PO BID 30 Days Vitals/I & O Vital Sign - Last 24 Hours 01/12/20 01/12/20 01/12/20 01/12/20 09:52 09:52 09:53 10:49 Temp 98.3 98.3 Pulse 76 76 76 59 Resp 18 B/P (MAP) 127/69 127/69 127/69 120/59 (79) Pulse Ox 95 O2 Delivery Room Air 01/12/20 01/12/20 01/12/20 01/12/20 13:18 13:55 15:00 19:10 Temp 98.2 98.0 98.2 98.0 Pulse 54 63 Resp 18 18 20 20 B/P (MAP) 108/59 (75) 122/55 (77) Pulse Ox 95 95 98 96 O2 Delivery Room Air Room Air Room Air Room Air 01/12/20 01/12/20 01/12/20 01/12/20 19:54 21:01 21:01 21:06 Pulse 63 63 B/P (MAP) 122/55 122/55 Pulse Ox 96 O2 Delivery Room Air Room Air 01/12/20 01/13/20 22:40 02:45 Temp 97.9 98.9 97.9 98.9 Pulse 59 58 Resp 18 18 B/P (MAP) 105/52 (69) 110/55 (73) Pulse Ox 97 96 O2 Delivery Room Air Room Air Intake and Output 01/12/20 01/12/20 01/13/20 15:00 23:00 07:00 Intake Total 250 ml 200 ml 1080 ml Output Total 320 ml 300 ml 200 ml Balance -70 ml -100 ml 880 ml Justicifation of Admission Dx: Justifications for Admission: Justification of Admission Dx: Yes CHF: Cardiac Arrhythmias Sepsis: Infection Cellulitis: Cellulitis SHASHANK DELAROSA MD Jan 13, 2020 08:01
[2020-01-13] MEDS: AMIODARONE HCL 200 MG TABLET. PO SCH ×2 (08:31→20:23)
[2020-01-13] MEDS: FUROSEMIDE 40 MG TABLET. PO SCH (08:31)
[2020-01-13] MEDS: LACTOBACILLUS RHAMNOSUS GG 1 CAPSULE. PO SCH ×2 (08:31→20:23)
[2020-01-13] MEDS: LISINOPRIL 5 MG TABLET. PO SCH (08:32)
[2020-01-13] MEDS: APIXABAN 5 MG TABLET. PO SCH ×2 (08:32→20:23)
[2020-01-13] MEDS: METOPROLOL TART IMMED RELEASE 25 MG TABLET. PO SCH ×2 (08:32→20:23)
[2020-01-13] MEDS: HYDROmorphone 2 MG/ML VIAL IV PRN ×3 (09:44→20:24)
[2020-01-13] MEDS: DAPTOmycin (GENERIC) IVPB 410 MG in IV NORMAL SALINE 50ML 50 ML IV SCH (10:42)
[2020-01-13 10:57] VITALS: BP 100/40
--- NOTE | 2020-01-13 12:47 | PDOC ---
PROGRESS NOTES Subjective Subjective Patient feeling better. Denied any chest pain, palpitations or shortness of breath. Objective Objective Vital Signs Date Time Temp Pulse Resp B/P (MAP) Pulse Ox O2 Delivery O2 Flow Rate FiO2 01/13/20 10:57 97.5 63 18 100/40 (60) 97 Room Air 97.5 01/13/20 09:44 10.0 Intake and Output 01/13/20 07:00 Intake Total 1530 ml Output Total 820 ml Balance 710 ml Intake Oral 1430 ml IV Total 100 ml Output Urine Total 820 ml # Voids 2 # Bowel Movements 1 Physical Exam Abdomen: Normal bowel sounds, Soft, No tenderness Heart: Regular rate, Other (Sinus tach with intermittent AFIB bursts) Extremities: No clubbing, No cyanosis, Other (Left knee with clean dry intact dressing) General: Alert, Oriented X3, Cooperative, No acute distress HEENT: Atraumatic, Mucous membr. moist/pink Lungs: Clear to auscultation, Normal air movement MUSCULOSKELETAL: Osteoarthritic changes both hands Neuro: Normal speech, Sensation intact Psych/Mental Status: Mental status NL, Mood NL Skin: No breakdown, Other (S/P ;eft knee arthroscopy) Assessment Assessment 1. Septic left knee: S/P arthroscopy with debridement and meniscus tear repair POD#5 ID and ortho following 2. PAFIB with RVR; rate better controlled today. Continue current medical regimen including amiodarone for antiarrhythmic therapy and Eliquis for stroke prophylaxis. Will plan outpatient cardioversion. 3. NICM/Chronic systolic CHF: compensated. EF better at 45% 4. HTN: controlled Plan Plan of Care Problems Medical Problems: (1) Fever Status: Acute (2) Pain and swelling of left knee Status: Acute (3) Person under investigation for COVID-19 Status: Acute Comment Review of Relevant I have reviewed the following items meenakshi (where applicable) has been applied. Labs Laboratory Tests Test 01/12/20 23:16 01/12/20 23:54 01/13/20 05:35 Glucose (Fingerstick) 70 mg/dL (70-99) 25 mg/dL (70-99) White Blood Count 10.7 x10^3/uL (4.0-11.0) Red Blood Count 3.08 x10^6/uL (4.30-5.70) Hemoglobin 10.3 g/dL (13.0-17.5) Hematocrit 30.3 % (39.0-53.0) Mean Corpuscular Volume 99 fL (79-100) Mean Corpuscular Hemoglobin 34 pg (25-35) Mean Corpuscular Hemoglobin Concent 34 g/dL (31-37) Red Cell Distribution Width 14.1 % (11.5-14.5) Platelet Count 435 x10^3/uL (140-400) Neutrophils (%) (Auto) 70 % (31-73) Lymphocytes (%) (Auto) 10 % (24-48) Monocytes (%) (Auto) 19 % (0-9) Eosinophils (%) (Auto) 0 % (0-3) Basophils (%) (Auto) 0 % (0-3) Neutrophils # (Auto) 7.4 x10^3/uL (1.8-7.7) Lymphocytes # (Auto) 1.1 x10^3/uL (1.0-4.8) Monocytes # (Auto) 2.1 x10^3/uL (0.0-1.1) Eosinophils # (Auto) 0.0 x10^3/uL (0.0-0.7) Basophils # (Auto) 0.0 x10^3/uL (0.0-0.2) Sodium Level 134 mmol/L (136-145) Potassium Level 3.7 mmol/L (3.5-5.1) Chloride Level 98 mmol/L (98-107) Carbon Dioxide Level 29 mmol/L (21-32) Anion Gap 7 (6-14) Blood Urea Nitrogen 15 mg/dL (8-26) Creatinine 1.0 mg/dL (0.7-1.3) Estimated GFR (Cockcroft-Gault) 73.0 BUN/Creatinine Ratio 15 (6-20) Glucose Level 103 mg/dL (70-99) Calcium Level 7.6 mg/dL (8.5-10.1) Total Bilirubin 1.4 mg/dL (0.2-1.0) Aspartate Amino Transf (AST/SGOT) 52 U/L (15-37) Alanine Aminotransferase (ALT/SGPT) 41 U/L (16-63) Alkaline Phosphatase 313 U/L (46-116) Total Protein 5.5 g/dL (6.4-8.2) Albumin 1.5 g/dL (3.4-5.0) Albumin/Globulin Ratio 0.4 (1.0-1.7) Microbiology 01/08/20 Gram Stain - Final, Resulted 01/08/20 Aerobic and Anaerobic Culture - Preliminary, Resulted 01/08/20 Blood Culture - Preliminary, Resulted NO GROWTH AFTER 4 DAYS Medications Current Medications Amiodarone HCl (Cordarone) 200 mg DAILY PO ; Start 01/18/20 at 09:00 Vitals/I & O Vital Sign - Last 24 Hours 01/12/20 01/12/20 01/12/20 01/12/20 13:18 13:55 15:00 19:10 Temp 98.2 98.0 98.2 98.0 Pulse 54 63 Resp 18 18 20 B/P (MAP) 108/59 (75) 122/55 (77) Pulse Ox 95 95 98 96 O2 Delivery Room Air Room Air Room Air Room Air 01/12/20 01/12/20 01/12/20 01/12/20 19:54 21:01 21:01 21:06 Pulse 63 63 B/P (MAP) 122/55 122/55 Pulse Ox 96 O2 Delivery Room Air Room Air 01/12/20 01/13/20 01/13/20 01/13/20 22:40 02:45 07:00 08:00 Temp 97.9 98.9 99.3 97.9 98.9 99.3 Pulse 59 58 79 Resp 18 18 18 B/P (MAP) 105/52 (69) 110/55 (73) 125/65 (85) Pulse Ox 97 96 96 O2 Delivery Room Air Room Air Room Air Room Air O2 Flow Rate 10.0 01/13/20 01/13/20 01/13/20 01/13/20 08:31 08:32 08:32 09:44 Pulse 79 79 79 Resp 18 B/P (MAP) 125/65 125/65 125/65 Pulse Ox 96 O2 Delivery Room Air O2 Flow Rate 10.0 01/13/20 01/13/20 10:21 10:57 Temp 97.5 97.5 Pulse 63 Resp 20 18 B/P (MAP) 100/40 (60) Pulse Ox 97 O2 Delivery Room Air Room Air Intake and Output 7/25/20 7/25/20 7/26/20 15:00 23:00 07:00 Intake Total 250 ml 200 ml 1080 ml Output Total 320 ml 300 ml 200 ml Balance -70 ml -100 ml 880 ml ROBERTA THOMAS MD Jan 13, 2020 12:47
[2020-01-13] MEDS: ANTI-COAG MONITOR BY PHARMACY. MC PRN (13:19)
[2020-01-13 15:00] VITALS: BP 120/69
[2020-01-13 19:10] VITALS: BP 108/67
[2020-01-13 23:05] VITALS: BP 109/64
[2020-01-14 02:20] VITALS: BP 110/71
[2020-01-14] MEDS: ACETAMINOPHEN 325 MG TABLET. PO PRN ×2 (03:17→12:22)
[2020-01-14] MEDS: HYDROmorphone 2 MG/ML VIAL IV PRN ×4 (04:24→21:43)
[2020-01-14] MEDS: PIPERACILLIN/TAZOBACTAM 3.375 GM in IV NORMAL SALINE 50ML 50 ML IV SCH ×3 (06:20→18:45)
[2020-01-14 07:00] VITALS: BP 111/62
[2020-01-14] MEDS: APIXABAN 5 MG TABLET. PO SCH ×2 (08:34→21:38)
[2020-01-14] MEDS: METOPROLOL TART IMMED RELEASE 25 MG TABLET. PO SCH ×2 (08:34→21:39)
[2020-01-14] MEDS: FUROSEMIDE 40 MG TABLET. PO SCH (08:34)
[2020-01-14] MEDS: LACTOBACILLUS RHAMNOSUS GG 1 CAPSULE. PO SCH ×2 (08:34→21:38)
[2020-01-14 10:20] VITALS: BP 102/56
[2020-01-14] MEDS: AMIODARONE HCL 200 MG TABLET. PO SCH ×2 (10:36→21:38)
[2020-01-14] MEDS: DAPTOmycin (GENERIC) IVPB 410 MG in IV NORMAL SALINE 50ML 50 ML IV SCH (10:37)
[2020-01-14] MEDS ORDERED: LIDOCAINE WITH 8.4% SOD BICARB 3 ML DISP.SYRIN. ONE (10:39)
[2020-01-14] MEDS ORDERED: LIDOCAINE WITH 8.4% SOD BICARB 3 ML DISP.SYRIN. INJ ONE (11:15)
--- NOTE | 2020-01-14 12:10 | RAD ---
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 The right upper extremity was prepped and draped using sterile barrier technique. All elements of maximal sterile barrier technique including the use of a cap, mask, sterile gown, sterile gloves, large sterile sheet, appropriate hand hygiene, and 2% chlorhexidine for cutaneous antisepsis (or acceptable alternative antiseptic per current guidelines) were followed for this procedure.. Real-time ultrasound demonstrated a patent right basilic vein which was prepped and draped in usual sterile fashion. 1% lidocaine used for local anesthesia. Using real-time ultrasound guidance the access needle percutaneously punctured the selected right basilic vein. Reference ultrasound images were saved to the medical record. A guidewire was advanced through the needle to the cavoatrial junction, and a peel-away sheath placed. The catheter was cut to length and inserted through the peel-away sheath such that its tip is at the cavoatrial junction. The wire and sheath were removed, and the catheter secured in place, and a sterile dressing was applied. Catheter was found to flush and aspirate normally. No immediate complications are identified. FLUORO TIME: 0.5 DOSE AREA PRODUCT: 0.5 Gycm2 Impression: Ultrasound and fluoroscopically guided placement of a right upper extremity PICC line.
[2020-01-14] MEDS: LISINOPRIL 5 MG TABLET. PO SCH (12:22)
--- NOTE | 2020-01-14 12:40 | PDOC ---
MAJO YARBROUGH APRN 01/14/20 1239: CARDIO Progress Notes Date and Time Date of Service 01/14/20 Time of Evaluation 1210 Subjective Subjective: No Chest Pain, No shortness of breath, No Palpitations Vitals Vitals Vital Signs Date Time Temp Pulse Resp B/P (MAP) Pulse Ox O2 Delivery O2 Flow Rate FiO2 01/14/20 12:22 86 119/58 01/14/20 10:30 Room Air 01/14/20 10:20 97.7 18 95 97.7 01/14/20 04:54 10.0 Weight Weight [ ] Input and Output Intake and Output Intake and Output 01/14/20 06:59 Intake Total 700 ml Output Total 950 ml Balance -250 ml Intake Oral 700 ml Output Urine Total 950 ml Microbiology Micro Microbiology 01/08/20 Gram Stain - Final, Complete 01/08/20 Aerobic and Anaerobic Culture - Final, Complete 01/08/20 Blood Culture - Final, Complete NO GROWTH AFTER 5 DAYS Physical Exam HEENT: Neck Supple W Full Motion Chest: Symmetric LUNGS: Other (diminished bases) Heart: murmurs (2/6 systolic murmur to LLS border), irregularly irregular (AFIB) Abdomen: Soft N/T Extremities: No Edema, No Calf Tenderness Neurology: alert, oriented, follow commands Assessment Assessment 1. Septic left knee: S/P arthroscopy with debridement and meniscus tear repair POD#6 ID and ortho following 2. PAFIB with RVR; rate controlled today. Continue metoprolol/Amiodarone for rhythm/rate control and Eliquis for stroke prophylaxis. Will plan outpatient c ardioversion. 3. NICM/Chronic systolic CHF: clinically compensated. EF better at 45% 4. HTN: controlled Justicifation of Admission Dx: Justifications for Admission: Justification of Admission Dx: Yes CHF: Cardiac Arrhythmias Sepsis: Infection Cellulitis: Cellulitis ROBERTA THOMAS MD 01/14/20 2192: CARDIO Progress Notes Assessment Assessment Patient seen and examined. Agree with AIRCRAFT SYSTEMS TECHNICIAN's assessment and plan, AF rate well controlled Continue eliquis for stoke prophylaxis and plan outpatient cardioversion Continue post op care per ortho MAJO YARBROUGH APRN Jan 14, 2020 12:39 ROBERTA THOMAS MD Jan 14, 2020 18:52
--- NOTE | 2020-01-14 13:24 | NUR ---
SS following up with discharge planning. SS reviewed pt chart and discussed with pt RN. Pt is currently on room air. Pt had PICC line placed today. Pt agreeable to fdc unit now and requested referral be phoned and faxed to [facility], ; [phone]. Pt reported that his spouse had been there. SS contacted pt's daughter, Deepika, , and discussed as well. SS phoned and faxed referral to [facility]. SS will await acceptance decision and insurance determination and will proceed accordingly.
--- NOTE | 2020-01-14 14:29 | NUR ---
SS following up with discharge planning. Pt has script for IV Invanz and Daptomycin QD. [facility] informed. SS received notification from [facility], ; fax [phone], reporting that they are requesting insurance authorization and carve out for IV antibiotics from [facility]. SS will await insurance determination and will proceed accordingly.
--- NOTE | 2020-01-14 14:43 | PDOC ---
[employer] PROGRESS NOTE Chief Complaint Chief Complaint S/P arthroscopy with debridement and meniscus tear repair POD# 4 ID and ortho following Septic left knee Dilated cardiomyopathy A-Fib, CHF inguinal hernia repair, CARDIAC CATH Previous tobacco abuse Plan:==== continue to follow cultures continue with antibiotics as per programmer analyst consultant pain management ID FOLLOWING Cardiology consulted Transition from Zosyn to IV Invanz when ready for discharge, first dose of Invanz here PICC line placed for outpatient antibiotic infusion Prescription in chart Cultures pending Monitor labs Q. Tuesday labs CBC, BUN, creatinine, CPK, CRP; fax results to [phone] Follow-up ID clinic in 2 weeks January 21 - phone [phone] Eliquis for DVT prophylaxis Advance diet as tolerated Full code Discussed with RN and SW Dispo pending rehab placement History of Present Illness History of Present Illness 01/14/2020 Patient seen and examined bedside with breakfast tray. Patient is working with physical therapy and would like to be considered for rehab placement. Patient is pain scale is controlled. 01/11 Patient seen and examined Discussed with RN Chart reviewed Doing well Covid (-) 01/10/20 No acute events reported overnight, case discussed with nursing staff patient in no acute distress no complaints during my visit, patient continues to have discomfort, reassurance has been provided ID programmer analyst consultant at bedside 01/11/2020 Patient seems to be better compared to yesterday. Results of cultures are still pending, we will continue with broad-spectrum antibiotics and encourage more activity as tolerated. All concerns addressed to the best of my ability Vitals/I&O Vitals/I&O: Vital Signs Date Time Temp Pulse Resp B/P (MAP) Pulse Ox O2 Delivery O2 Flow Rate FiO2 01/14/20 12:22 86 119/58 01/14/20 10:30 Room Air 01/14/20 10:20 97.7 18 95 97.7 01/14/20 04:54 10.0 I & O 0 01/13/20 01/13/20 01/14/20 15:00 23:00 07:00 Intake Total 100 ml 600 ml Output Total 350 ml 400 ml 200 ml Balance -250 ml -400 ml 400 ml Physical Exam Physical Exam: GENERAL: Alert awake male no acute distress HEENT: Normocephalic, atraumatic, anicteric. NECK: Supple. No JVD. LUNGS: Clear bilaterally. No wheezing. HEART: S1, S2. No gallops or murmurs. ABDOMEN: Soft, nontender, nondistended. No rebound. No guarding. EXTREMITIES: Dressing in place, intact, dry, not taken down. Moves toes. Right lower extremity: No abnormality noted. CENTRAL NERVOUS SYSTEM: Alert and oriented x 3, grossly nonfocal. PSYCHIATRIC: Cooperative, appropriate mood and affect. General: Alert, Oriented X3, Cooperative, No acute distress Heart: Regular rate, Other (Sinus tach with intermittent AFIB bursts) Lungs: Clear, Other Abdomen: Normal bowel sounds, Soft, No tenderness Extremities: No clubbing, No cyanosis, Other (Left knee with clean dry intact dressing) Skin: No breakdown, Other (S/P ;eft knee arthroscopy) Labs Labs: Current Medications Medications (Trade) Dose Ordered Sig/Lenin Route PRN Reason Start Time Stop Time Status Last Admin Dose Admin Ibuprofen (Motrin) 200 mg STK-MED ONCE PO 01/08/20 15:14 01/08/20 15:14 DC Ibuprofen (Motrin) 400 mg STK-MED ONCE PO 01/08/20 15:14 01/08/20 15:14 DC Sodium Chloride 1,000 ml @ 1,000 mls/hr 1X ONCE IV 01/08/20 15:30 01/08/20 16:29 DC 01/08/20 15:24 Ibuprofen (Motrin) 600 mg 1X ONCE PO 01/08/20 15:30 01/08/20 15:31 DC 01/08/20 15:30 Vancomycin HCl (Vanco Per Pharmacy) 1 each PRN DAILY PRN MC SEE COMMENTS 01/08/20 16:00 01/11/20 08:32 DC 01/10/20 12:46 Piperacillin Sod/ Tazobactam Sod (Zosyn Per Pharmacy) 1 each PRN DAILY PRN MC SEE COMMENTS 01/08/20 16:00 Vancomycin HCl 1.75 gm/Sodium Chloride 500 ml @ 250 mls/hr 1X ONCE IV 01/08/20 16:15 01/08/20 18:14 DC 01/08/20 22:00 Piperacillin Sod/ Tazobactam Sod 4.5 gm/Sodium Chloride 100 ml @ 200 mls/hr 1X ONCE IV 01/08/20 16:15 01/08/20 16:44 DC 01/08/20 17:13 Iohexol (Omnipaque 350 Mg/ml) 100 ml 1X ONCE IV 01/08/20 16:15 01/08/20 16:16 DC 01/08/20 16:15 Info (CONTRAST GIVEN -- Rx MONITORING) 1 each PRN DAILY PRN MC SEE COMMENTS 01/08/20 16:30 01/10/20 16:29 DC Ondansetron HCl (Zofran) 4 mg PRN Q6HRS PRN IV NAUSEA/VOMITING 01/08/20 18:45 01/09/20 18:44 DC 01/09/20 11:24 Fentanyl Citrate (Fentanyl 2ml Vial) 25 mcg PRN Q5MIN PRN IV MILD PAIN 1-3 01/08/20 18:45 01/09/20 18:44 DC Fentanyl Citrate (Fentanyl 2ml Vial) 50 mcg PRN Q5MIN PRN IV MODERATE TO SEVERE PAIN 01/08/20 18:45 01/09/20 18:44 DC Morphine Sulfate (Morphine Sulfate) 1 mg PRN Q10MIN PRN IV SEVERE PAIN 7-01/08/20 18:45 01/09/20 18:44 DC Ringer's Solution 1,000 ml @ 30 mls/hr Q24H IV 01/08/20 18:41 01/09/20 06:40 DC 01/08/20 19:45 Lidocaine HCl (Xylocaine-Mpf 1% 2ml Vial) 2 ml PRN 1X PRN ID PRIOR TO IV START 01/08/20 18:45 01/09/20 18:44 DC Hydromorphone HCl (Dilaudid) 0.5 mg PRN Q10MIN PRN IV SEV PAIN, Second choice 01/08/20 18:45 01/09/20 18:44 DC Prochlorperazine Edisylate (Compazine) 5 mg PACU PRN PRN IV NAUSEA, MRX1 01/08/20 18:45 01/09/20 18:44 DC Propofol (Diprivan) 200 mg STK-MED ONCE IV 01/08/20 20:12 01/08/20 20:12 DC Etomidate (Amidate) 20 mg STK-MED ONCE IV 01/08/20 20:12 01/08/20 20:12 DC Dexamethasone Sodium Phosphate (Decadron) 4 mg STK-MED ONCE .ROUTE 01/08/20 20:12 01/08/20 20:12 DC Phenylephrine HCl (PHENYLEPHRINE in 0.9% NACL PF) 1 mg STK-MED ONCE IV 01/08/20 20:12 01/08/20 20:12 DC Apixaban (Eliquis) 5 mg BID PO 01/08/20 21:00 Cancel Furosemide (Lasix) 40 mg DAILY PO 01/09/20 09:00 01/14/20 08:34 Lisinopril (Prinivil) 2.5 mg DAILY PO 01/09/20 09:00 01/14/20 12:22 Metoprolol Tartrate (Lopressor) 25 mg BID PO 01/08/20 21:00 01/14/20 08:34 Nitroglycerin (Nitrostat) 0.4 mg PRN Q5MIN PRN SL CHEST PAIN 01/08/20 20:30 Sodium Chloride (Normal Saline Flush) 3 ml QSHIFT PRN IV AFTER MEDS AND BLOOD DRAWS 01/08/20 20:30 Ondansetron HCl (Zofran) 4 mg PRN Q4HRS PRN IV NAUSEA/VOMITING 01/08/20 20:30 01/11/20 14:23 Acetaminophen (Tylenol) 650 mg PRN Q4HRS PRN PO TEMP OVER 100.4F OR MILD PAIN 01/08/20 20:30 01/14/20 12:22 Sodium Monofluorophosphate (Fleet Adult) 133 ml PRN DAILY PRN OR CONSTIPATION 01/08/20 20:30 Docusate Sodium (Colace) 100 mg PRN BID PRN PO HARD STOOLS 01/08/20 20:30 Albuterol Sulfate (Ventolin Neb Soln) 2.5 mg PRN Q4HRS PRN NEB SHORTNESS OF BREATH 01/08/20 20:30 Guaifenesin (Robitussin) 200 mg PRN Q4HRS PRN PO COUGH 01/08/20 20:30 Lorazepam (Ativan) 0.5 mg PRN Q4HRS PRN PO ANXIETY / AGITATION 01/08/20 20:30 01/11/20 10:20 Hydromorphone HCl (Dilaudid) 0.75 mg PRN Q3HRS PRN IV SEVERE PAIN 7-01/08/20 20:30 01/14/20 10:30 Info (Anti-Coagulation Monitoring By Pharmacy) 1 each PRN DAILY PRN SEE COMMENTS 01/08/20 21:00 01/13/20 13:19 Apixaban (Eliquis) 5 mg BID PO 01/09/20 09:00 01/14/20 08:34 Bupivacaine HCl/ Epinephrine Bitart (Sensorcain-Epi 0.5%-1:924282 Mpf) 30 ml STK-MED ONCE .ROUTE 01/08/20 21:19 01/08/20 21:19 DC 01/08/20 21:20 Piperacillin Sod/ Tazobactam Sod 3.375 gm/Sodium Chloride 50 ml @ 100 mls/hr Q6HRS IV 01/09/20 00:00 01/14/20 12:19 Vancomycin HCl 1 gm/Sodium Chloride 250 ml @ 250 mls/hr Q18H IV 01/09/20 14:00 01/10/20 08:46 DC 01/09/20 14:14 Vancomycin HCl (Vancomycin Trough Level) 1 each 1X ONCE 01/10/20 07:30 01/10/20 07:31 DC 01/10/20 07:30 Lactobacillus Rhamnosus (Culturelle) 1 cap BID PO 01/09/20 21:00 01/14/20 08:34 Iohexol (Omnipaque 350 Mg/ml) 100 ml STK-MED ONCE .ROUTE 01/09/20 19:43 01/09/20 19:43 DC Vancomycin HCl 1 gm/Sodium Chloride 250 ml @ 250 mls/hr Q12H IV 01/10/20 09:00 01/11/20 08:31 DC 01/10/20 20:54 Amiodarone HCl (Cordarone) 400 mg 1X PO 01/10/20 10:15 01/10/20 10:23 DC Amiodarone HCl (Cordarone) 400 mg 1X ONCE PO 01/10/20 10:30 01/10/20 10:31 DC 01/10/20 11:27 Digoxin (Lanoxin) 500 mcg 1X ONCE IV 01/10/20 12:00 01/10/20 12:01 DC 01/10/20 12:32 Potassium Chloride (Klor-Con) 20 meq 1X ONCE PO 01/10/20 12:00 01/10/20 12:01 DC 01/10/20 12:32 Vancomycin HCl (Vancomycin Trough Level) 1 each 1X ONCE MC 01/11/20 08:30 01/11/20 08:31 DC Amiodarone HCl (Cordarone) 400 mg BID PO 01/10/20 21:00 01/17/20 09:01 01/14/20 10:36 Amiodarone HCl (Cordarone) 200 mg DAILY PO 01/18/20 09:00 Daptomycin 410 mg/ Sodium Chloride 50 ml @ 100 mls/hr Q24H IV 01/11/20 11:00 01/14/20 10:37 Lidocaine HCl (Buffered Lidocaine 1%) 3 ml STK-MED ONCE .ROUTE 01/14/20 10:39 01/14/20 10:39 DC Lidocaine HCl (Buffered Lidocaine 1%) 3 ml 1X ONCE INJ 01/14/20 11:15 01/14/20 11:16 DC 01/14/20 11:07 Review of Systems Review of Systems: CONSTITUIONAL: Denies weight loss, fever and chills. HEENT: Denies changes in vision and hearing. RESPIRATORY: Denies SOB and cough. CV: Denies palpitations and CP. GI: Denies abdominal pain, nausea, vomiting and diarrhea. : Denies dysuria and urinary frequency. MSK: Denies myalgia and joint pain. SKIN: Denies rash and pruritus. NEUROLOGICAL: Denies headache and syncope. PSYCHIATRIC: Denies recent changes in mood. Denies anxiety and depression. Assessment and Plan Assessmemt and Plan Problems Medical Problems: (1) Fever Status: Acute (2) Pain and swelling of left knee Status: Acute (3) Person under investigation for COVID-19 Status: Acute Comment Review of Relevant I have reviewed the following items meenakshi (where applicable) has been applied. Medications: Current Medications Medications (Trade) Dose Ordered Sig/Lenin Route PRN Reason Start Time Stop Time Status Last Admin Dose Admin Lidocaine HCl (Buffered Lidocaine 1%) 3 ml 1X ONCE INJ 01/14/20 11:15 01/14/20 11:16 DC 01/14/20 11:07 Justicifation of Admission Dx: Justifications for Admission: Justification of Admission Dx: Yes CHF: Cardiac Arrhythmias Sepsis: Infection Cellulitis: Cellulitis GORGE DAMON MD Jan 14, 2020 14:43
[2020-01-14 14:50] VITALS: BP 120/48
[2020-01-14 18:56] VITALS: BP 118/59
[2020-01-14 23:00] VITALS: BP 101/61
[2020-01-15] MEDS: PIPERACILLIN/TAZOBACTAM 3.375 GM in IV NORMAL SALINE 50ML 50 ML IV SCH ×4 (01:29→17:50)
[2020-01-15 03:00] VITALS: BP 100/57
[2020-01-15] MEDS: ACETAMINOPHEN 325 MG TABLET. PO PRN ×3 (03:45→17:54)
[2020-01-15 07:00] VITALS: BP 118/54
[2020-01-15] MEDS: FUROSEMIDE 40 MG TABLET. PO SCH (09:20)
[2020-01-15] MEDS: APIXABAN 5 MG TABLET. PO SCH ×2 (09:20→20:09)
[2020-01-15] MEDS: LACTOBACILLUS RHAMNOSUS GG 1 CAPSULE. PO SCH ×2 (09:20→20:09)
[2020-01-15] MEDS: METOPROLOL TART IMMED RELEASE 25 MG TABLET. PO SCH ×2 (09:21→20:10)
[2020-01-15] MEDS: ANTI-COAG MONITOR BY PHARMACY. MC PRN (10:08)
[2020-01-15 10:28] VITALS: BP 106/70
--- NOTE | 2020-01-15 11:15 | NUR ---
SS following up with discharge planning. SS reviewed pt chart and discussed with pt RN. Pt is currently on room air. Pt has PICC line. [facility], ; fax [phone], accepted. Pt has insurance authorization for [facility]. Currently awaiting [employer] to approve carve out for IV antibiotics. Pt will need IV Daptomycin and IV Invanz. SS met with pt and discussed. SS completed medical DPOA with pt as requested. SS will continue to follow for discharge planning.
[2020-01-15] MEDS: HYDROmorphone 2 MG/ML VIAL IV PRN ×2 (11:44→20:05)
[2020-01-15] MEDS: DAPTOmycin (GENERIC) IVPB 410 MG in IV NORMAL SALINE 50ML 50 ML IV SCH (11:51)
[2020-01-15] MEDS: AMIODARONE HCL 200 MG TABLET. PO SCH ×2 (11:59→20:10)
[2020-01-15] MEDS: LISINOPRIL 5 MG TABLET. PO SCH (12:58)
--- NOTE | 2020-01-15 13:15 | PDOC ---
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 Tuesday labs CBC, BUN, creatinine, CPK, CRP; fax results to [phone] Follow-up ID clinic in 2 weeks January 21 - phone [phone] Eliquis for DVT prophylaxis Advance diet as tolerated Full code Discussed with RN and SW Dispo pending rehab placement once insurance authorized approval for IV antibiotics History of Present Illness History of Present Illness 01/15/2020 Patient seen and examined sitting on recliner. Patient has currently working in physical therapy. Patient endorses improved pain control. 01/14/2020 Patient seen and examined bedside with breakfast tray. Patient is working with physical therapy and would like to be considered for rehab placement. Patient is pain scale is controlled. 01/11 Patient seen and examined Discussed with RN Chart reviewed Doing well Covid (-) 01/10/20 No acute events reported overnight, case discussed with nursing staff patient in no acute distress no complaints during my visit, patient continues to have discomfort, reassurance has been provided ID mgmt consultant at bedside 01/11/2020 Patient seems to be better compared to yesterday. Results of cultures are still pending, we will continue with broad-spectrum antibiotics and encourage more activity as tolerated. All concerns addressed to the best of my ability Vitals/I&O Vitals/I&O: Vital Signs Date Time Temp Pulse Resp B/P (MAP) Pulse Ox O2 Delivery O2 Flow Rate FiO2 01/15/20 12:58 70 108/57 01/15/20 11:44 Room Air 01/15/20 10:28 98.6 18 95 98.6 I & O 01/14/20 01/14/20 01/15/20 15:00 23:00 07:00 Intake Total 200 ml 800 ml Output Total 200 ml 125 ml 100 ml Balance 0 ml 675 ml -100 ml Physical Exam Physical Exam: GENERAL: Alert awake male no acute distress HEENT: Normocephalic, atraumatic, anicteric. NECK: Supple. No JVD. LUNGS: Clear bilaterally. No wheezing. HEART: S1, S2. No gallops or murmurs. ABDOMEN: Soft, nontender, nondistended. No rebound. No guarding. EXTREMITIES: Dressing in place, intact, dry, not taken down. Moves toes. Right lower extremity: No abnormality noted. CENTRAL NERVOUS SYSTEM: Alert and oriented x 3, grossly nonfocal. PSYCHIATRIC: Cooperative, appropriate mood and affect. General: Alert, Oriented X3, Cooperative, No acute distress Heart: Regular rate, Other (Sinus tach with intermittent AFIB bursts) Lungs: Clear, Other Abdomen: Normal bowel sounds, Soft, No tenderness Extremities: No clubbing, No cyanosis, Other (Left knee with clean dry intact dressing) Skin: No breakdown, Other (S/P ;eft knee arthroscopy) Labs Labs: All labs, images, and reports were reviewed by me personally Current Medications Medications (Trade) Dose Ordered Sig/Lenin Route PRN Reason Start Time Stop Time Status Last Admin Dose Admin Ibuprofen (Motrin) 200 mg STK-MED ONCE PO 01/08/20 15:14 01/08/20 15:14 DC Ibuprofen (Motrin) 400 mg STK-MED ONCE PO 01/08/20 15:14 01/08/20 15:14 DC Sodium Chloride 1,000 ml @ 1,000 mls/hr 1X ONCE IV 01/08/20 15:30 01/08/20 16:29 DC 01/08/20 15:24 Ibuprofen (Motrin) 600 mg 1X ONCE PO 01/08/20 15:30 01/08/20 15:31 DC 01/08/20 15:30 Vancomycin HCl (Vanco Per Pharmacy) 1 each PRN DAILY PRN MC SEE COMMENTS 01/08/20 16:00 01/11/20 08:32 DC 01/10/20 12:46 Piperacillin Sod/ Tazobactam Sod (Zosyn Per Pharmacy) 1 each PRN DAILY PRN MC SEE COMMENTS 01/08/20 16:00 Vancomycin HCl 1.75 gm/Sodium Chloride 500 ml @ 250 mls/hr 1X ONCE IV 01/08/20 16:15 01/08/20 18:14 DC 01/08/20 22:00 Piperacillin Sod/ Tazobactam Sod 4.5 gm/Sodium Chloride 100 ml @ 200 mls/hr 1X ONCE IV 01/08/20 16:15 01/08/20 16:44 DC 01/08/20 17:13 Iohexol (Omnipaque 350 Mg/ml) 100 ml 1X ONCE IV 01/08/20 16:15 01/08/20 16:16 DC 01/08/20 16:15 Info (CONTRAST GIVEN -- Rx MONITORING) 1 each PRN DAILY PRN MC SEE COMMENTS 01/08/20 16:30 01/10/20 16:29 DC Ondansetron HCl (Zofran) 4 mg PRN Q6HRS PRN IV NAUSEA/VOMITING 01/08/20 18:45 01/09/20 18:44 DC 01/09/20 11:24 Fentanyl Citrate (Fentanyl 2ml Vial) 25 mcg PRN Q5MIN PRN IV MILD PAIN 1-3 01/08/20 18:45 01/09/20 18:44 DC Fentanyl Citrate (Fentanyl 2ml Vial) 50 mcg PRN Q5MIN PRN IV MODERATE TO SEVERE PAIN 01/08/20 18:45 01/09/20 18:44 DC Morphine Sulfate (Morphine Sulfate) 1 mg PRN Q10MIN PRN IV SEVERE PAIN 7-10 01/08/20 18:45 01/09/20 18:44 DC Ringer's Solution 1,000 ml @ 30 mls/hr Q24H IV 01/08/20 18:41 01/09/20 06:40 DC 01/08/20 19:45 Lidocaine HCl (Xylocaine-Mpf 1% 2ml Vial) 2 ml PRN 1X PRN ID PRIOR TO IV START 01/08/20 18:45 01/09/20 18:44 DC Hydromorphone HCl (Dilaudid) 0.5 mg PRN Q10MIN PRN IV SEV PAIN, Second choice 01/08/20 18:45 01/09/20 18:44 DC Prochlorperazine Edisylate (Compazine) 5 mg PACU PRN PRN IV NAUSEA, MRX1 01/08/20 18:45 01/09/20 18:44 DC Propofol (Diprivan) 200 mg STK-MED ONCE IV 01/08/20 20:12 01/08/20 20:12 DC Etomidate (Amidate) 20 mg STK-MED ONCE IV 01/08/20 20:12 01/08/20 20:12 DC Dexamethasone Sodium Phosphate (Decadron) 4 mg STK-MED ONCE .ROUTE 01/08/20 20:12 01/08/20 20:12 DC Phenylephrine HCl (PHENYLEPHRINE in 0.9% NACL PF) 1 mg STK-MED ONCE IV 01/08/20 20:12 01/08/20 20:12 DC Apixaban (Eliquis) 5 mg BID PO 01/08/20 21:00 Cancel Furosemide (Lasix) 40 mg DAILY PO 01/09/20 09:00 01/15/20 09:20 Lisinopril (Prinivil) 2.5 mg DAILY PO 01/09/20 09:00 01/15/20 12:58 Metoprolol Tartrate (Lopressor) 25 mg BID PO 01/08/20 21:00 01/15/20 09:21 Nitroglycerin (Nitrostat) 0.4 mg PRN Q5MIN PRN SL CHEST PAIN 01/08/20 20:30 Sodium Chloride (Normal Saline Flush) 3 ml QSHIFT PRN IV AFTER MEDS AND BLOOD DRAWS 01/08/20 20:30 Ondansetron HCl (Zofran) 4 mg PRN Q4HRS PRN IV NAUSEA/VOMITING 01/08/20 20:30 01/11/20 14:23 Acetaminophen (Tylenol) 650 mg PRN Q4HRS PRN PO TEMP OVER 100.4F OR MILD PAIN 01/08/20 20:30 01/15/20 09:19 Sodium Monofluorophosphate (Fleet Adult) 133 ml PRN DAILY PRN [place] CONSTIPATION 01/08/20 20:30 Docusate Sodium (Colace) 100 mg PRN BID PRN PO HARD STOOLS 01/08/20 20:30 Albuterol Sulfate (Ventolin Neb Soln) 2.5 mg PRN Q4HRS PRN NEB SHORTNESS OF BREATH 01/08/20 20:30 Guaifenesin (Robitussin) 200 mg PRN Q4HRS PRN PO COUGH 01/08/20 20:30 Lorazepam (Ativan) 0.5 mg PRN Q4HRS PRN PO ANXIETY / AGITATION 01/08/20 20:30 01/11/20 10:20 Hydromorphone HCl (Dilaudid) 0.75 mg PRN Q3HRS PRN IV SEVERE PAIN 7-10 01/08/20 20:30 01/15/20 11:44 Info (Anti-Coagulation Monitoring By Pharmacy) 1 each PRN DAILY PRN SEE COMMENTS 01/08/20 21:00 01/15/20 10:08 Apixaban (Eliquis) 5 mg BID PO 01/09/20 09:00 01/15/20 09:20 Bupivacaine HCl/ Epinephrine Bitart (Sensorcain-Epi 0.5%-1:196207 Mpf) 30 ml STK-MED ONCE .ROUTE 01/08/20 21:19 01/08/20 21:19 DC 01/08/20 21:20 Piperacillin Sod/ Tazobactam Sod 3.375 gm/Sodium Chloride 50 ml @ 100 mls/hr Q6HRS IV 01/09/20 00:00 01/15/20 12:52 Vancomycin HCl 1 gm/Sodium Chloride 250 ml @ 250 mls/hr Q18H IV 01/09/20 14:00 01/10/20 08:46 DC 01/09/20 14:14 Vancomycin HCl (Vancomycin Trough Level) 1 each 1X ONCE 01/10/20 07:30 01/10/20 07:31 DC 01/10/20 07:30 Lactobacillus Rhamnosus (Culturelle) 1 cap BID PO 01/09/20 21:00 01/15/20 09:20 Iohexol (Omnipaque 350 Mg/ml) 100 ml STK-MED ONCE .ROUTE 01/09/20 19:43 01/09/20 19:43 DC Vancomycin HCl 1 gm/Sodium Chloride 250 ml @ 250 mls/hr Q12H IV 01/10/20 09:00 01/11/20 08:31 DC 01/10/20 20:54 Amiodarone HCl (Cordarone) 400 mg 1X PO 01/10/20 10:15 01/10/20 10:23 DC Amiodarone HCl (Cordarone) 400 mg 1X ONCE PO 01/10/20 10:30 01/10/20 10:31 DC 01/10/20 11:27 Digoxin (Lanoxin) 500 mcg 1X ONCE IV 01/10/20 12:00 01/10/20 12:01 DC 01/10/20 12:32 Potassium Chloride (Klor-Con) 20 meq 1X ONCE PO 01/10/20 12:00 01/10/20 12:01 DC 01/10/20 12:32 Vancomycin HCl (Vancomycin Trough Level) 1 each 1X ONCE MC 01/11/20 08:30 01/11/20 08:31 DC Amiodarone HCl (Cordarone) 400 mg BID PO 01/10/20 21:00 01/17/20 09:01 01/15/20 11:59 Amiodarone HCl (Cordarone) 200 mg DAILY PO 01/18/20 09:00 Daptomycin 410 mg/ Sodium Chloride 50 ml @ 100 mls/hr Q24H IV 01/11/20 11:00 01/15/20 11:51 Lidocaine HCl (Buffered Lidocaine 1%) 3 ml STK-MED ONCE .ROUTE 01/14/20 10:39 01/14/20 10:39 DC Lidocaine HCl (Buffered Lidocaine 1%) 3 ml 1X ONCE INJ 01/14/20 11:15 01/14/20 11:16 DC 01/14/20 11:07 Assessment and Plan Assessmemt and Plan Problems Medical Problems: (1) Fever Status: Acute (2) Pain and swelling of left knee Status: Acute (3) Person under investigation for COVID-19 Status: Acute Comment Review of Relevant I have reviewed the following items meenakshi (where applicable) has been applied. Justicifation of Admission Dx: Justifications for Admission: Justification of Admission Dx: Yes CHF: Cardiac Arrhythmias Sepsis: Infection Cellulitis: Cellulitis GORGE DAMON MD Jan 15, 2020 13:15
[2020-01-15 14:53] VITALS: BP 115/60
--- NOTE | 2020-01-15 16:41 | PDOC ---
BEENA DE GUZMAN IDEA MAN 01/15/20 1641: CARDIO Progress Notes Date and Time Date of Service 01/15/2020 Time of Evaluation 1630 Subjective Subjective: No Chest Pain, No shortness of breath, No Palpitations Vitals Vitals Vital Signs Date Time Temp Pulse Resp B/P (MAP) Pulse Ox O2 Delivery O2 Flow Rate FiO2 01/15/20 14:53 98.1 63 18 115/60 (78) 98 Room Air 98.1 Weight Weight [ ] Input and Output Intake and Output Intake and Output 01/15/20 07:00 Intake Total 1000 ml Output Total 425 ml Balance 575 ml Intake Oral 1000 ml Output Urine Total 425 ml # Voids 100 Microbiology Micro Microbiology 01/08/20 Gram Stain - Final, Complete 01/08/20 Aerobic and Anaerobic Culture - Final, Complete 01/08/20 Blood Culture - Final, Complete NO GROWTH AFTER 5 DAYS Physical Exam HEENT: Neck Supple W Full Motion Chest: Symmetric LUNGS: Other (diminished bases) Heart: murmurs (2/6 systolic murmur to LLS border), irregularly irregular (AFIB) Abdomen: Soft N/T Extremities: No Edema, No Calf Tenderness Neurology: alert, oriented, follow commands Assessment Assessment 1. Septic left knee: S/P arthroscopy with debridement and meniscus tear repair POD#7 ID and ortho following 2. PAFIB with RVR; rate controlled today. Continue metoprolol/Amiodarone for rhythm/rate control and Eliquis for stroke prophylaxis. Amiodarone 400 mg po bid then transition to 200 mg po daily starting 01/19/2020. Will plan outpatient cardioversion. 3. NICM/Chronic systolic CHF: clinically compensated. EF better at 45%. Secondary prevention measures. 4. HTN: controlled Justicifation of Admission Dx: Justifications for Admission: Justification of Admission Dx: Yes CHF: Cardiac Arrhythmias Sepsis: Infection Cellulitis: Cellulitis ROBERTA THOMAS MD 01/15/20 2150: CARDIO Progress Notes Assessment Assessment Patient seen and examined. Agree with CHOCOLATE PRODUCTION MACHINE OPERATOR's assessment and plan, AF rate well controlled Continue eliquis for stoke prophylaxis and plan outpatient cardioversion Continue post op care per ortho BEENA DE GUZMAN APRN Jan 15, 2020 16:41 ROBERTA THOMAS MD Jan 15, 2020 21:50
[2020-01-15 19:44] VITALS: BP 107/63
[2020-01-15 22:25] VITALS: BP 97/52
[2020-01-16] MEDS: PIPERACILLIN/TAZOBACTAM 3.375 GM in IV NORMAL SALINE 50ML 50 ML IV SCH ×5 (00:02→23:27)
[2020-01-16] MEDS: HYDROmorphone 2 MG/ML VIAL IV PRN (03:41)
[2020-01-16 03:59] VITALS: BP 106/64
[2020-01-16] MEDS: ACETAMINOPHEN 325 MG TABLET. PO PRN (06:40)
[2020-01-16 07:00] VITALS: BP 119/64
[2020-01-16] MEDS: ANTI-COAG MONITOR BY PHARMACY. MC PRN (09:10)
[2020-01-16] MEDS: LACTOBACILLUS RHAMNOSUS GG 1 CAPSULE. PO SCH ×2 (09:14→20:37)
[2020-01-16] MEDS: LISINOPRIL 5 MG TABLET. PO SCH (09:15)
[2020-01-16] MEDS: APIXABAN 5 MG TABLET. PO SCH ×2 (09:15→20:38)
[2020-01-16] MEDS: AMIODARONE HCL 200 MG TABLET. PO SCH ×2 (09:15→20:38)
[2020-01-16] MEDS: FUROSEMIDE 40 MG TABLET. PO SCH (09:15)
[2020-01-16] MEDS: METOPROLOL TART IMMED RELEASE 25 MG TABLET. PO SCH ×2 (09:16→20:39)
[2020-01-16 11:00] VITALS: BP 116/58
--- NOTE | 2020-01-16 12:08 | NUR ---
SS following up with discharge planning. SS reviewed pt chart and discussed with pt RN. [facility], ; fax [phone], and insurance authorization received for care home unit. Pt needing IV antibiotics in care home unit and SS currently awaiting approval for carve out from [facility] for IV antibiotics in care home unit. SS contacted [facility] this morning and requested status update on carve out approval. SS was notified by Mehreen Brewer at [facility] that she has notified the team of my request for update and someone would be contacting me with more information. SS will continue to follow for discharge planning.
[2020-01-16] MEDS: DAPTOmycin (GENERIC) IVPB 410 MG in IV NORMAL SALINE 50ML 50 ML IV SCH (12:17)
[2020-01-16] MEDS: HYDROcodone/APAP 5/325MG 1 TAB TABLET PO PRN ×3 (13:06→20:40)
--- NOTE | 2020-01-16 14:46 | PDOC ---
[facility] PROGRESS NOTE Chief Complaint Chief Complaint S/P arthroscopy with debridement and meniscus tear repair POD# 5 ID and ortho following Septic left knee Dilated cardiomyopathy A-Fib, CHF inguinal hernia repair, CARDIAC CATH Previous tobacco abuse Plan:==== continue with antibiotics as per configuration consultant Pending Lyme serology due to continued migratory polyarthralgias pain management ID FOLLOWING Cardiology consulted Continue IV Invanz, pick has been placed for outpatient antibiotic infusion Prescription in chart Cultures pending Monitor labs Q. Tuesday labs CBC, BUN, creatinine, CPK, CRP; fax results to [id number] Follow-up ID clinic in 2 weeks January 21 - phone [phone] Eliquis for DVT prophylaxis Advance diet as tolerated Full code Discussed with RN and SW Dispo pending rehab placement once insurance authorized approval for IV ant ibiotics History of Present Illness History of Present Illness 01/16/2020 Patient seen and examined bedside. Chart reviewed. Patient is tolerating diet. Adequate pain control. 01/15/2020 Patient seen and examined sitting on recliner. Patient has currently working in physical therapy. Patient endorses improved pain control. 01/14/2020 Patient seen and examined bedside with breakfast tray. Patient is working with physical therapy and would like to be considered for rehab placement. Patient is pain scale is controlled. 01/11 Patient seen and examined Discussed with RN Chart reviewed Doing well Covid (-) 01/10/20 No acute events reported overnight, case discussed with nursing staff patient in no acute distress no complaints during my visit, patient continues to have discomfort, reassurance has been provided ID configuration consultant at bedside 01/11/2020 Patient seems to be better compared to yesterday. Results of cultures are still pending, we will continue with broad-spectrum antibiotics and encourage more activity as tolerated. All concerns addressed to the best of my ability Vitals/I&O Vitals/I&O: Vital Signs Date Time Temp Pulse Resp B/P (MAP) Pulse Ox O2 Delivery O2 Flow Rate FiO2 01/16/20 11:00 97.6 57 16 116/58 (77) 99 Room Air 97.6 I & O 01/15/20 01/15/20 01/16/20 15:00 23:00 07:00 Intake Total 120 ml 600 ml 400 ml Output Total 350 ml 200 ml 525 ml Balance -230 ml 400 ml -125 ml Physical Exam Physical Exam: GENERAL: Alert awake male no acute distress HEENT: Normocephalic, atraumatic, anicteric. NECK: Supple. No JVD. LUNGS: Clear bilaterally. No wheezing. HEART: S1, S2. No gallops or murmurs. ABDOMEN: Soft, nontender, nondistended. No rebound. No guarding. EXTREMITIES: Dressing in place, intact, dry, not taken down. Moves toes. Right lower extremity: No abnormality noted. CENTRAL NERVOUS SYSTEM: Alert and oriented x 3, grossly nonfocal. PSYCHIATRIC: Cooperative, appropriate mood and affect. General: Alert, Oriented X3, Cooperative, No acute distress Heart: Regular rate, Other (Sinus tach with intermittent AFIB bursts) Lungs: Clear, Other Abdomen: Normal bowel sounds, Soft, No tenderness Extremities: No clubbing, No cyanosis, Other (Left knee with clean dry intact dressing) Skin: No breakdown, Other (S/P ;eft knee arthroscopy) Review of Systems Review of Systems: CONSTITUIONAL: Denies weight loss, fever and chills. HEENT: Denies changes in vision and hearing. RESPIRATORY: Denies SOB and cough. CV: Denies palpitations and CP. GI: Denies abdominal pain, nausea, vomiting and diarrhea. : Denies dysuria and urinary frequency. MSK: Denies myalgia and joint pain. SKIN: Denies rash and pruritus. NEUROLOGICAL: Denies headache and syncope. PSYCHIATRIC: Denies recent changes in mood. Denies anxiety and depression. Assessment and Plan Assessmemt and Plan Problems Medical Problems: (1) Fever Status: Acute (2) Pain and swelling of left knee Status: Acute (3) Person under investigation for COVID-19 Status: Acute Comment Review of Relevant I have reviewed the following items meenakshi (where applicable) has been applied. Medications: Current Medications Medications (Trade) Dose Ordered Sig/Lenin Route PRN Reason Start Time Stop Time Status Last Admin Dose Admin Acetaminophen/ Hydrocodone Bitart (Lortab 5/325) 1 tab PRN Q4HRS PRN PO PAIN 01/16/20 09:15 01/16/20 13:06 Justicifation of Admission Dx: Justifications for Admission: Justification of Admission Dx: Yes CHF: Cardiac Arrhythmias Sepsis: Infection Cellulitis: Cellulitis GORGE DAMON MD Jan 16, 2020 14:46
[2020-01-16 15:00] VITALS: BP 113/56
[2020-01-16 19:44] VITALS: BP 101/56
[2020-01-16 22:43] VITALS: BP 96/56
[2020-01-17] MEDS: HYDROcodone/APAP 5/325MG 1 TAB TABLET PO PRN ×3 (02:32→11:13)
[2020-01-17 02:33] VITALS: BP 110/71
[2020-01-17] MEDS: PIPERACILLIN/TAZOBACTAM 3.375 GM in IV NORMAL SALINE 50ML 50 ML IV SCH ×2 (06:20→11:50)
[2020-01-17 07:00] VITALS: BP 125/71
--- NOTE | 2020-01-17 07:38 | PDOC ---
Infectious Disease Note Subjective Subjective c/o R hand swelling that started yesterday after gripping walker has been active Denies sob, fever, nausea, vomiting, diarrhea, abdominal pain Pain in lt hand,elbow and shoulder is better Still has left knee pain but is under control with pain medication ROS ROS o/w neg Vital Sign Vital Signs Vital Signs Date Time Temp Pulse Resp B/P (MAP) Pulse Ox O2 Delivery O2 Flow Rate FiO2 01/17/20 06:35 18 01/17/20 03:32 98 Room Air 01/17/20 02:33 97.7 71 110/71 (84) 97.7 Physical Exam PHYSICAL EXAM GENERAL: Alert awake male no acute distress HEENT: Normocephalic, atraumatic, anicteric. NECK: Supple. No JVD. LUNGS: Clear bilaterally. No wheezing. HEART: S1, S2. No gallops or murmurs. ABDOMEN: Soft, nontender, nondistended. No rebound. No guarding. EXTREMITIES: Dressing in place, intact, dry, not taken down. Moves toes. Right lower extremity: No abnormality noted. Left hand with some tenderness and swelling but no warmth or fluid collections CENTRAL NERVOUS SYSTEM: Alert and oriented x 3, grossly nonfocal. PSYCHIATRIC: Cooperative, appropriate mood and affect. PICC RUE : clean Labs Micro Microbiology 01/08/20 Gram Stain - Final, Complete 01/08/20 Aerobic and Anaerobic Culture - Final, Complete 01/08/20 Blood Culture - Final, Complete NO GROWTH AFTER 5 DAYS Objective Assessment Right hand swelling - ? OA with activity 1. Fever improved 2. Leukocytosis.improving 3. Septic Lt Knee ; crystals neg from synovial fluid January 07 status post left knee arthroscopy with synovial debridement and partial medial and lateral meniscectomy for medial and lateral meniscal tear and calcium pyrophosphate deposition disease. Cults negative so far 4. Abnormal liver function tests. 5. History of paroxysmal atrial fibrillation with congestive heart failure. 6. Arthralgias. 7. History of ETOH abuse. 8. COVID-19 negative. 9. High D dimer CT angiogram, no PE Venous Dopplers of lower extremities negative for DVT Plan Plan of Care R hand XRAY CBC with diff/BMP/CK/Uric acid Ortho eval Continue Dapto and Zosyn At discharge can d/c with Zosyn at current dose or with continuous infusion if facility can manage Monitor for EtOH withdrawal Prescription in chart Social work is assisting with above Cultures pending Monitor labs Q. Tuesday labs CBC, BUN, creatinine, CPK, CRP; fax results to [phone] Follow-up ID clinic in 2 weeks Jan 21- , call [phone] for appointment Continue local wound care as directed. PT and OT as tolerated Continue supportive care. Discussed with nursing staff. MAXWELL CANALES MD Jan 17, 2020 07:38
[2020-01-17] MEDS: APIXABAN 5 MG TABLET. PO SCH (08:26)
[2020-01-17] MEDS: METOPROLOL TART IMMED RELEASE 25 MG TABLET. PO SCH (08:30)
[2020-01-17] MEDS: LISINOPRIL 5 MG TABLET. PO SCH (08:30)
[2020-01-17] MEDS: LACTOBACILLUS RHAMNOSUS GG 1 CAPSULE. PO SCH (08:31)
[2020-01-17] MEDS: AMIODARONE HCL 200 MG TABLET. PO SCH (08:31)
[2020-01-17] MEDS: FUROSEMIDE 40 MG TABLET. PO SCH (08:31)
[2020-01-17 08:44] LABS: BASO # 0.1 x10^3/uL (0.0-0.2); BASO % 1 % (0-3); EOS # 0.1 x10^3/uL (0.0-0.7); EOS % 1 % (0-3); HEMATOCRIT 28.7 % (39.0-53.0); HEMOGLOBIN 9.8 g/dL (13.0-17.5); LYMPH # 1.3 x10^3/uL (1.0-4.8); LYMPH % 11 % (24-48); MEAN CORPUSCULAR HEMOGLOBIN 33 pg (25-35); MEAN CORPUSCULAR HGB CONC 34 g/dL (31-37); MEAN CORPUSCULAR VOLUME 96 fL (79-100); MONO # 1.6 x10^3/uL (0.0-1.1); MONO % 13 % (0-9); NEUT # 8.8 x10^3/uL (1.8-7.7); NEUT % 74 % (31-73); PLATELET COUNT 682 x10^3/uL (140-400); RED BLOOD COUNT 2.98 x10^6/uL (4.30-5.70); RED CELL DISTRIBUTION WIDTH 13.8 % (11.5-14.5); WHITE BLOOD COUNT 11.9 x10^3/uL (4.0-11.0)
[2020-01-17 09:08] LABS: URIC ACID 3.2 mg/dL (3.5-7.2)
[2020-01-17 09:15] LABS: POTASSIUM 2.9 mmol/L (3.5-5.1)
--- NOTE | 2020-01-17 09:25 | PDOC ---
ORTHO PROGRESS NOTES Subjective Patient had a recent debridement of his left knee for concern of infection. He tells me his left knee is doing much better he has been up and walking more, using a walker and is noticed that his right hand started hurting. He feels the pain on the dorsum of his hand. He has had intermittent swelling at his hands depending on how much he uses and in the past as well. Vitals Vital Signs Date Time Temp Pulse Resp B/P (MAP) Pulse Ox O2 Delivery O2 Flow Rate FiO2 01/17/20 08:31 78 125/71 01/17/20 07:00 97.8 16 96 Room Air 97.8 Labs Laboratory Tests Test 01/17/20 08:30 White Blood Count 11.9 x10^3/uL (4.0-11.0) Red Blood Count 2.98 x10^6/uL (4.30-5.70) Hemoglobin 9.8 g/dL (13.0-17.5) Hematocrit 28.7 % (39.0-53.0) Mean Corpuscular Volume 96 fL (79-100) Mean Corpuscular Hemoglobin 33 pg (25-35) Mean Corpuscular Hemoglobin Concent 34 g/dL (31-37) Red Cell Distribution Width 13.8 % (11.5-14.5) Platelet Count 682 x10^3/uL (140-400) Neutrophils (%) (Auto) 74 % (31-73) Lymphocytes (%) (Auto) 11 % (24-48) Monocytes (%) (Auto) 13 % (0-9) Eosinophils (%) (Auto) 1 % (0-3) Basophils (%) (Auto) 1 % (0-3) Neutrophils # (Auto) 8.8 x10^3/uL (1.8-7.7) Lymphocytes # (Auto) 1.3 x10^3/uL (1.0-4.8) Monocytes # (Auto) 1.6 x10^3/uL (0.0-1.1) Eosinophils # (Auto) 0.1 x10^3/uL (0.0-0.7) Basophils # (Auto) 0.1 x10^3/uL (0.0-0.2) Sodium Level 134 mmol/L (136-145) Potassium Level 2.9 mmol/L (3.5-5.1) Chloride Level 99 mmol/L (98-107) Carbon Dioxide Level 30 mmol/L (21-32) Anion Gap 5 (6-14) Blood Urea Nitrogen 14 mg/dL (8-26) Creatinine 1.0 mg/dL (0.7-1.3) Estimated GFR (Cockcroft-Gault) 73.0 Glucose Level 105 mg/dL (70-99) Uric Acid 3.2 mg/dL (3.5-7.2) Calcium Level 8.0 mg/dL (8.5-10.1) Creatine Kinase 19 U/L (39-308) Laboratory Tests Test 01/17/20 08:30 White Blood Count 11.9 x10^3/uL (4.0-11.0) Red Blood Count 2.98 x10^6/uL (4.30-5.70) Hemoglobin 9.8 g/dL (13.0-17.5) Hematocrit 28.7 % (39.0-53.0) Mean Corpuscular Volume 96 fL (79-100) Mean Corpuscular Hemoglobin 33 pg (25-35) Mean Corpuscular Hemoglobin Concent 34 g/dL (31-37) Red Cell Distribution Width 13.8 % (11.5-14.5) Platelet Count 682 x10^3/uL (140-400) Neutrophils (%) (Auto) 74 % (31-73) Lymphocytes (%) (Auto) 11 % (24-48) Monocytes (%) (Auto) 13 % (0-9) Eosinophils (%) (Auto) 1 % (0-3) Basophils (%) (Auto) 1 % (0-3) Neutrophils # (Auto) 8.8 x10^3/uL (1.8-7.7) Lymphocytes # (Auto) 1.3 x10^3/uL (1.0-4.8) Monocytes # (Auto) 1.6 x10^3/uL (0.0-1.1) Eosinophils # (Auto) 0.1 x10^3/uL (0.0-0.7) Basophils # (Auto) 0.1 x10^3/uL (0.0-0.2) Sodium Level 134 mmol/L (136-145) Potassium Level 2.9 mmol/L (3.5-5.1) Chloride Level 99 mmol/L (98-107) Carbon Dioxide Level 30 mmol/L (21-32) Anion Gap 5 (6-14) Blood Urea Nitrogen 14 mg/dL (8-26) Creatinine 1.0 mg/dL (0.7-1.3) Estimated GFR (Cockcroft-Gault) 73.0 Glucose Level 105 mg/dL (70-99) Uric Acid 3.2 mg/dL (3.5-7.2) Calcium Level 8.0 mg/dL (8.5-10.1) Creatine Kinase 19 U/L (39-308) Notes He is awake and alert, lying in bed. Dressings in place over his knee. No effusion. Examination of his bilateral hands reveals characteristic arthritic deformity. He does have edema on the dorsum of his right hand and tenderness in this area. He lacks a little wrist and finger flexion secondary to pain compared to his normal contralateral side. No erythema, no wounds. Assessment and Plan I think the probability that the swelling in his hand represents anything infectious is quite low. His cultures were negative at his knee. I think that this is likely related to his overuse of his right hand as he has experienced such things in the past bilaterally. I would recommend gentle compression and icing. He can continue to use his hands as much as he feels comfortable. WHITNEY BROWNLEE II, MD Jan 17, 2020 09:24
--- NOTE | 2020-01-17 10:34 | RAD ---
PROCEDURE: HAND RIGHT 3V STUDY DATE: 01/17/2020 CLINICAL INDICATION / HISTORY: Reason: pain and swelling / Spl. Instructions: / History: . TECHNIQUE: PA, lateral and oblique views of the right hand. COMPARISON: None FINDINGS: No fracture or dislocation is identified. The bone density is normal. The joint spaces are maintained, and there are no erosions to suggest an inflammatory arthropathy. The soft tissues are notable for extensive arterial vascular calcifications.. IMPRESSION: No acute osseous abnormality. Electronically signed by: Laila Vo MD (01/17/2020 10:32 AM) [id number]
[2020-01-17 10:46] VITALS: BP 132/84
[2020-01-17] MEDS: DAPTOmycin (GENERIC) IVPB 410 MG in IV NORMAL SALINE 50ML 50 ML IV SCH (11:00)
[2020-01-17] MEDS ORDERED: ELECTROLYTE (NON-ICU) PROTOCOL MC PRN (11:00)
[2020-01-17] MEDS ORDERED: POTASSIUM CHLORIDE 20 MEQ TABLET.ER. PO PRN (11:00)
--- NOTE | 2020-01-17 11:22 | SNU/HH DC ---
DISCHARGE ORDERS DISCHARGE INFORMATION: FINAL DIAGNOSIS Problems Medical Problems: (1) Fever Status: Acute (2) Pain and swelling of left knee Status: Acute (3) Person under investigation for COVID-19 Status: Acute CONDITION ON DISCHARGE: Stable (Patient will need to follow-up with rheum atology for migratory joint pains) CODE STATUS: Code Status: Full HALF-WAY: SNF STAY <30 DAYS: Yes POST DISCHARGE ORDERS: ACTIVITY ORDERS: No restrictions, Other, see below WEIGHT BEARING STATUS: As tolerated, Other, see below DIET AFTER DISCHARGE: Regular CHECKS AFTER DISCHARGE: CHECKS AFTER DISCHARGE: Check blood press - daily, Weigh Yourself Daily FOLLOW-UP: PHYSICIAN FOLLOW-UP: Orthopedic surgery ADDITIONAL FOLLOW-UP: Infectious disease TREATMENT/EQUIPMENT ORDERS: ADAPTIVE EQUIPMENT NEEDED: None INFUSION EQUIPMENT NEEDED: PICC Line (Patient will need to be seen by rheumatology as an outpatient for migratory joint pains) Physical Therapy For: Evalulation/Treatment Occupational Therapy For: Evaluation/Treatment DISCHARGE MEDICATIONS: Home Meds Active Scripts Furosemide (FUROSEMIDE) 40 Mg Tablet, 1 TAB PO DAILY for CHF for 30 Days, #30 TAB 5 Refills Prov:SHSAHANK DELAROSA MD 08/18/19 Lisinopril (LISINOPRIL) 5 Mg Tablet, 2.5 MG PO DAILY for HEART for 30 Days, #15 TAB Prov:SHASHANK DELAROSA MD 08/18/19 Metoprolol Tartrate (METOPROLOL TARTRATE) 25 Mg Tablet, 25 MG PO BID for HEART for 30 Days, #60 TAB Prov:SHASHANK DELAROSA MD 08/18/19 Nitroglycerin (NITROSTAT) 0.4 Mg Tab.subl, 0.4 MG SL PRN Q5MIN PRN for CHEST PAIN for 30 Days, #100 TAB Prov:SHASHANK DELAROSA MD 08/18/19 Apixaban (ELIQUIS) 5 Mg Tablet, 5 MG PO BID for HEART for 30 Days, #60 TAB Prov:SHASHANK DELAROSA MD 08/18/19 GORGE DAMON MD Jan 17, 2020 11:22
[2020-01-17] MEDS: POTASSIUM CHLORIDE 10MEQ 100 ML IV SCH ×4 (11:51→15:00)
--- NOTE | 2020-01-17 13:04 | NUR ---
SS following up with discharge planning. SS received notification that carve out for IV antibiotics has been approved. Discharge orders received. SS phoned and faxed discharge orders to [facility], ; fax [phone]. Pt will discharge today and go to [facility] between 1500 and 1530. [place] to provide transportation. Pt, pt's RN, and pt's daughter notified.
--- NOTE | 2020-01-17 14:17 | PDOC3 ---
[facility]-Discharge Summary Date of Admission: Date of Admission: Jan 08, 2020 Date of Discharge: Date of Discharge: Jan 17, 2020 Admission Diagnosis: Admitting Diagnosis: HX A-FIB ON ELIQUIS Chronic CHF with ejection Fraction is 15-20%.severe global hypokinesis of the left ventricle.mild concentric left ventricular hypertrophy.Doppler and Color Flow revealed trace tricuspid regurgitation with an estimated PAP of 41 mmHg. 2. KNEE Pain and swelling, acute, concern for septic knee, aspirated in er 3. recent Moderate right and small left pleural effusion. 4. Reflux of contrast into distended IVC and hepatic veins suggesting right heart strain or failure. 5. Pulmonary hypertension 6. Mild bilateral lower lobe infiltrates/atelectasis. 7. Fever/ POA 8. PUI for covid-19 stat 9. leukocytosis 10. NONISCHEMIC Cardiomyopathy 11. ELEVATED D-DIMER Discharge Diagnosis: Discharge Diagnosis: S/P arthroscopy with debridement and meniscus tear repair POD# 5 ID and ortho following Septic left knee Dilated cardiomyopathy A-Fib, CHF EF of 15 to 20% inguinal hernia repair, CARDIAC CATH Previous tobacco abuse Consults: Consults: Cardiology Orthopedics Infectious disease Hospital Course: Hospital Course: 74-year-old male, who presented to the ER on 01/08/2020 with complaints of pain in the joints, mainly in the left wrist, left shoulder, and left elbow with subsequent pain in both the knees, but mainly over the left knee. The patient was playing with his dog and the dog fell a couple of days ago, after which he sprained his left wrist with swelling, which gradually moved to the left elbow and to the shoulder. Subsequently, he noticed that the left knee started swelling. He denied any cough, fevers, chills, chest pain, shortness of breath, abdominal pain, nausea, vomiting, diarrhea, symptoms, generalized weakness. The patient was febrile at 101. White count was elevated at 13.7. LFTs were elevated. CK was 50. Troponin was normal. BNP was 1456. Lipase was 326. Lactate was normal. Procalcitonin was 0.13. He underwent synovial aspirate, which showed 59,600 wbc's with 96% polymorphs and total rbc was 3867. COVID was negative. The patient underwent chest x-ray, which was negative for infiltrates. Head CT was negative for any acute process. Left knee x-ray showed small joint effusion. Ultrasound of the lower extremity showed no DVT. Chest CTA showed no PE or infiltrate. His D-dimer was high. The patient underwent left knee arthroscopy with synovial debridement and partial medial and lateral meniscectomy for medial and lateral meniscal tear and calcium pyrophosphate deposition disease intraoperatively. The patient was started on IV vanc and Zosyn. ID consult has been requested for antibiotic management. Today, the patient states his postop pain is under control. He denies any fevers, chills, nausea, vomiting, diarrhea, abdominal pain, shortness of breath, cough, symptoms. Patient was admitted for further management. Orthopedic surgery was consulted and patient underwent arthroscopy with debridement and meniscal tear repair. Patient had no postoperative events. Postoperative course was uneventful. Patient continue to work with PT OT. Patient was treated with continuous IV antibiotics. Patient also had a joint flare in his right wrist during his hospitalization. Concern for Lyme disease a Lyme serology panel was sent which returned back as negative. Patient will be transferred to [facility] for further rehab. Patient will continue with IV antibiotics. PEG was placed during this hospital course. It was discussed in great detail that the patient be seen by a machine tool mechanic as an outpatient. No autoimmune or rheumatological labs were ordered during this hospital course. Disposition: Disposition/Orders: D/C to Another Facility Activity: Activity: Resume previous activity Diet: Diet: Cardiac Medications: Home Meds Active Scripts Furosemide (FUROSEMIDE) 40 Mg Tablet, 1 TAB PO DAILY for CHF for 30 Days, #30 TAB 5 Refills Prov:SHASHANK DELAROSA MD 08/18/19 Lisinopril (LISINOPRIL) 5 Mg Tablet, 2.5 MG PO DAILY for HEART for 30 Days, #15 TAB Prov:SHASHANK DELAROSA MD 08/18/19 Metoprolol Tartrate (METOPROLOL TARTRATE) 25 Mg Tablet, 25 MG PO BID for HEART for 30 Days, #60 TAB Prov:SHASHANK DELAROSA MD 08/18/19 Nitroglycerin (NITROSTAT) 0.4 Mg Tab.subl, 0.4 MG SL PRN Q5MIN PRN for CHEST PAIN for 30 Days, #100 TAB Prov:SHASHANK DELAROSA MD 08/18/19 Apixaban (ELIQUIS) 5 Mg Tablet, 5 MG PO BID for HEART for 30 Days, #60 TAB Prov:SHASHANK DELAROSA MD 08/18/19 Scheduled Apixaban (Eliquis), 5 MG PO BID Furosemide (Furosemide), 1 TAB PO DAILY Lisinopril (Lisinopril), 2.5 MG PO DAILY Metoprolol Tartrate (Metoprolol Tartrate), 25 MG PO BID Scheduled PRN Nitroglycerin (Nitrostat), 0.4 MG SL PRN Q5MIN PRN for CHEST PAIN Total Time: Total Time: Total time spent was 45 minutes in preparing scripts, discharge planning with SWI and RN and preparing this discharge summary Justicifation of Admission Dx: Justifications for Admission: Justification of Admission Dx: Yes CHF: Cardiac Arrhythmias Sepsis: Infection Cellulitis: Cellulitis GORGE DAMON MD Jan 17, 2020 14:17
[2020-01-17 15:00] VITALS: BP 138/72
[2020-01-17] MEDS: ANTI-COAG MONITOR BY PHARMACY. MC PRN (15:16)
--- NOTE | 2020-01-17 15:27 | NUR ---
Discharge Note: SCOTT SERNA Discharge instructions and discharge home medications reviewed with Other facility and a copy given. All questions have been answered and understanding verbalized. The following instructions and handouts were given: PICC line Discontinued lines and drains: PICC line intact. [facility]
--- NOTE | 2020-01-17 15:28 | NUR ---
Atempt to call [place] for report was given and number to the [facility] hallway [phone]. Could no leave a voicemail.
[2020-01-18] MEDS ORDERED: AMIODARONE HCL 200 MG TABLET. PO SCH (09:00)
== END 2020-01-17 16:05 | DRG 853 ==
LOC: ER 12:03 → ED HOLD 15:52 → 2 SOUTH 17:23
PROVIDERS: ADMIT Family Medicine; ATTEND Family Medicine
PROC: 0SBD4ZZ Excision of Left Knee Joint, Percutaneous Endoscopic Approach (ICD-10-PCS; 2020-01-08)
PROC: 0SBD4ZZ Excision of Left Knee Joint, Percutaneous Endoscopic Approach (ICD-10-PCS; principal; 2020-01-08 18:30)
PROC: 02HV33Z Insertion of Infusion Device into Superior Vena Cava, Percutaneous Approach (ICD-10-PCS; 2020-01-14)
PROC: B5181ZA Fluoroscopy of Superior Vena Cava using Low Osmolar Contrast, Guidance (ICD-10-PCS; 2020-01-14)
PROC: B548ZZA Ultrasonography of Superior Vena Cava, Guidance (ICD-10-PCS; 2020-01-14)
DX: A41.9 Sepsis, unspecified organism (principal); E43 Unspecified severe protein-calorie malnutrition; M00.9 Pyogenic arthritis, unspecified; J98.11 Atelectasis; I42.0 Dilated cardiomyopathy; I48.20 Chronic atrial fibrillation, unspecified; I50.22 Chronic systolic (congestive) heart failure; Z20.828 Contact with and (suspected) exposure to other viral communicable diseases; E78.5 Hyperlipidemia, unspecified; F41.9 Anxiety disorder, unspecified; I11.0 Hypertensive heart disease with heart failure; I25.10 Atherosclerotic heart disease of native coronary artery without angina pectoris; I27.20 Pulmonary hypertension, unspecified; I48.0 Paroxysmal atrial fibrillation; J84.10 Pulmonary fibrosis, unspecified; K44.9 Diaphragmatic hernia without obstruction or gangrene; K59.00 Constipation, unspecified; M19.90 Unspecified osteoarthritis, unspecified site; S83.242A Other tear of medial meniscus, current injury, left knee, initial encounter; S83.282A Other tear of lateral meniscus, current injury, left knee, initial encounter; X58.XXXA Exposure to other specified factors, initial encounter; M11.262 Other chondrocalcinosis, left knee; M65.9 Synovitis and tenosynovitis, unspecified; Z79.899 Other long term (current) drug therapy; Z79.01 Long term (current) use of anticoagulants; Z82.5 Family history of asthma and other chronic lower respiratory diseases; Z87.891 Personal history of nicotine dependence; Y93.89 Activity, other specified; Y92.89 Other specified places as the place of occurrence of the external cause; Y99.8 Other external cause status
CPT/HCPCS: 36415; 36573; 70450; 71045; 71275; 73130; 73562; 77001; 80048; 80053; 80202; 81001; 82550; 82553; 82565; 82728; 82962; 83605; 83690; 83735; 83880; 84132; 84145; 84443; 84484; 84550; 85007; 85025; 85379; 85610; 85730; 86140; 86618; 87040; 87071; 87075; 87426; 89050; 89060; 93005; 93306; 93971; 96361; 96365; 96366; 96367; 96375; A7015; C1751; C1892; J0878; J1100; J1160; J1170; J2370; J2405; J2543; J2704; J3370; J3480; J3490; J7030; J7040; J7050; J7120; Q9967; 97110-GO; 97110-GP; 97116-GP; 97530-GO; 97530-GP; 97535-GO; 99285-25; G0378; U0003-CS

== ENCOUNTER → 2020-07-31 | Outpatient (CLI) | payer MEDICARE ==
[~2020-07-31] MED LIST changes: +ACET325T9 PO; +AMIO200T6 PO; -LISI-338 PO; +LISI-517 PO
== END ==
LOC: LAB 10:28
PROVIDERS: ATTEND Internal Medicine Cardiovascular Disease
DX: U07.1 COVID-19 (principal); Z01.812 Encounter for preprocedural laboratory examination; I48.91 Unspecified atrial fibrillation
CPT/HCPCS: U0003

== ENCOUNTER 2020-08-29 10:57 | Day surgery (SDC) | payer MEDICARE ==
[~2020-08-29 10:57] MED LIST changes: +IV RINGERS,LACTATED 1000ML 1,000 ML IV SCH
[2020-08-29 11:51] LABS: HEMATOCRIT 43.2 % (39.0-53.0); HEMOGLOBIN 14.5 g/dL (13.0-17.5); RED BLOOD COUNT 4.59 x10^6/uL (4.30-5.70); RED CELL DISTRIBUTION WIDTH 14.9 % (11.5-14.5); WHITE BLOOD COUNT 6.3 x10^3/uL (4.0-11.0)
--- NOTE | 2020-08-29 11:53 | EKG ---
[facility] [address] [place] [address] Test Date: 2020-08-29 Test Time: 11:45:16 Pat Name: SCOTT SERNA Department: Room: Gender: M Felt Finisher: : 1945 Requested By: ROBERTA THOMAS Order Number: [id number] Reading MD: Measurements Intervals [place] Rate: 61 P: ND: QRS: -52 QRSD: 138 T: 32 QT: 452 QTc: 461 Interpretive Statements IRREGULAR RHYTHM, NO P-WAVE FOUND ABNORMAL LEFT AXIS DEVIATION LEFT ANTERIOR FASCICULAR BLOCK NON SPECIFIC INTRAVENTRICULAR BLOCK QRS(T) CONTOUR ABNORMALITY CONSISTENT WITH ANTEROSEPTAL INFARCT PROBABLY OLD ABNORMAL ECG RI6.02 Compared to ECG 01/09/2020 12:35:34 Left-axis deviation now present Myocardial infarct finding now present
[2020-08-29 11:57] LABS: CALCIUM 8.5 mg/dL (8.5-10.1); CREATININE 1.4 mg/dL (0.7-1.3); GFR 49.4; POTASSIUM 4.3 mmol/L (3.5-5.1)
[2020-08-29 12:04] LABS: PROTHROMBIN TIME PATIENT 16.9 SEC (11.7-14.0)
[2020-08-29] MEDS ORDERED: PROPOFOL 10 MG/ML (20ML) VIAL. IV ONE (12:11)
[2020-08-29] MEDS ORDERED: LIDOCAINE 2% PF 5 ML VIAL. ONE (12:11)
--- NOTE | 2020-08-29 13:12 | PDOC4 ---
Procedure Note Procedure: External cardioversion Indications: Atrial fibrillation Complications: None Procedural Details: After explaining the risk, benefits and alternative options, informed consent was obtained from patient. Patient was given intravenous propofol for deep sedation by general anesthesia team. He was then administered 200 J of synchronized biphasic DC shock therapy with successful conversion of patient rhythm from atrial fibrillation to sinus rhythm. He was hemodynamically stable without any neurological deficits at the end of procedure. He tolerated the procedure well. There were no immediate complications. Conclusions: Successful external cardioversion of atrial fibrillation to normal sinus rhythm ROBERTA THOMAS MD Aug 29, 2020 13:12
--- NOTE | 2020-08-29 13:17 | EKG ---
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
[2020-08-29 13:27] VITALS: BP 133/76
== END 2020-08-29 13:56 | disposition home or self-care (01) ==
LOC: SURG 10:57
PROVIDERS: ATTEND Internal Medicine Cardiovascular Disease
DX: I48.91 Unspecified atrial fibrillation (principal); I45.4 Nonspecific intraventricular block; R94.31 Abnormal electrocardiogram [ECG] [EKG]; I11.0 Hypertensive heart disease with heart failure; I50.9 Heart failure, unspecified; E78.00 Pure hypercholesterolemia, unspecified; M19.90 Unspecified osteoarthritis, unspecified site; F17.210 Nicotine dependence, cigarettes, uncomplicated; Z79.899 Other long term (current) drug therapy; Z98.890 Other specified postprocedural states
CPT/HCPCS: 36415; 80048; 85027; 85610; 85730; 92960; 93005; J2704